=== PATIENT | male | born 1975 ===

== ENCOUNTER 2017-01-01 11:23 | Inpatient (IN) | payer OTHER ==
[2017-01-01 11:43] VITALS: BMI 23.5
[2017-01-01] MEDS ORDERED: Sodium Chloride 0.9% 1,000 ML IV STA ×3 (12:02→15:46)
[2017-01-01 12:29] LABS: SQUAMOUS EPITHIAL 1 /hpf (0-5); URINE AMORPHOUS SEDIMENT RARE /ul (<OCC); URINE BILIRUBIN MODERATE (NEGATIVE); URINE BLOOD SMALL (NEGATIVE); URINE CLARITY CLOUDY (Clear); URINE COLOR AMBER (YELLOW); URINE GLUCOSE (UA) NEG (Normal); URINE LEUKOCYTE ESTERASE NEG Leu/uL (Negative); URINE NITRATE NEGATIVE (NEGATIVE); URINE PROTEIN >=500 mg/dL (NEGATIVE); URINE URIC ACID CRYSTALS FEW /hpf (<OCC)
[2017-01-01 12:40] LABS: ALB/GLOB RATIO 1.2 (1.0-2.1); ALBUMIN 3.9 g/dL (3.5-5.0); ALT/SGPT 211 U/L (21-72); AST/SGOT 114 U/L (17-59); BLOOD UREA NITROGEN 20 mg/dl (9-20); CALCIUM 8.4 mg/dL (8.4-10.2); GFR AFRICAN-AMERICAN > 60; GFR NON-AFRICAN AMERICAN > 60; LIPASE 194 U/L (23-300)
[2017-01-01 12:41] LABS: INR 1.2 (0.9-1.2); PARTIAL THROMBOPLASTIN TIME 32.1 Seconds (25.6-37.1); PROTHROMBIN TIME 13.6 Seconds (9.8-13.1)
[2017-01-01 12:52] LABS: BASO % 0.2 % (0.0-2.0); EOS % 0.1 % (0.0-4.0); HEMOGLOBIN 12.4 g/dL (12.0-18.0); LYMPH # 0.1 K/uL (1.0-4.3); LYMPH % 0.8 % (20.0-40.0); MEAN CELL VOLUME 89.7 fl (80.0-94.0); MEAN CORPUSCULAR HEMOGLOBIN 30.4 pg (27.0-31.0); MEAN CORPUSCULAR HGB CONC 33.9 g/dL (33.0-37.0); MEAN PLATELET VOLUME 9.2 fl (7.2-11.7); MONO # 0.5 K/uL (0.0-0.8); MONO % 3.3 % (0.0-10.0); NEUT # 14.3 K/uL (1.8-7.0); NEUT % 95.6 % (50.0-75.0); NRBC % 0.1 % (0.0-0.0); PLATELET COUNT 73 K/uL (130-400); RBC 4.07 Mil/uL (4.40-5.90); RED CELL DISTRIBUTION WIDTH 13.8 % (11.5-14.5); WHITE BLOOD COUNT 14.9 K/uL (4.8-10.8)
[2017-01-01] MEDS ORDERED: Piperacillin/Tazobact 4.5 GM in Sodium Chloride 0.9% 100 ML IVPB STA (12:52)
[2017-01-01 13:20] LABS: VENOUS BLOOD GAS BASE EXCESS -1.7 mmol/L (0.0-2.0); VENOUS BLOOD GAS PCO2 50 mmHg (40-60); VENOUS BLOOD GAS PO2 16 mm/Hg (30-55); VENOUS BLOOD PH 7.31 (7.32-7.43)
--- NOTE | 2017-01-01 13:40 | ED PDOC ---
HPI: Abdomen Time Seen by Provider: 01/01/17 11:50 Chief Complaint (Nursing): Abdominal Pain Chief Complaint (Provider): abdominal pain History Per: Family (41 y/o male brought to ED for evaluation of abdominal pain/ fevers/chills x 3 days. Denies any vomiting/diarrhea. No h/o alcohol abuse. Denies any drugs/smoking. No h/o abdominal surgeries.) Past Medical History Reviewed: Historical Data, Nursing Documentation, Vital Signs Vital Signs: Last Vital Signs Temp 100.1 F H 01/01/17 13:47 Pulse 105 H 01/01/17 13:47 Resp 19 01/01/17 13:47 BP 100/66 01/01/17 13:47 Pulse Ox 98 01/01/17 15:21 - Surgical History Surgical History: No Surg Hx - Family History Family History: States: No Known Family Hx - Social History Current smoker - smoking cessation education provided: No Alcohol: Occasional Drugs: Denies - Home Medications Home Medications: Ambulatory Orders Medication Instructions Recorded No Known Home Med 01/01/17 - Allergies Allergies/Adverse Reactions: Allergies Allergy/AdvReac Type Severity Reaction Status Date / Time No Known Allergies Allergy Verified 01/01/17 11:42 Review of Systems ROS Statement: Except As Marked, All Systems Reviewed And Found Negative Gastrointestinal: Positive for: Abdominal Pain Physical Exam - Reviewed Nursing Documentation Reviewed: Yes Vital Signs Reviewed: Yes - Physical Exam Appears: Positive for: Well, Non-toxic, No Acute Distress Head Exam: Positive for: ATRAUMATIC, NORMAL INSPECTION, NORMOCEPHALIC Skin: Positive for: Normal Color, Warm, DRY Eye Exam: Positive for: EOMI, Normal appearance, PERRL ENT: Positive for: Normal ENT Inspection Neck: Positive for: Normal, Painless ROM Cardiovascular/Chest: Positive for: Regular Rate, Rhythm Respiratory: Positive for: CNT, Normal Breath Sounds Gastrointestinal/Abdominal: Positive for: Normal Exam, Bowel Sounds, Soft, Tenderness (epigastric tenderness noted) Back: Positive for: Normal Inspection Extremity: Positive for: Normal ROM Neurologic/Psych: Positive for: Alert, Oriented - Laboratory Results Result Diagrams: 01/01/17 12:00 01/01/17 12:00 Urine dip results: Positive for: Blood, Glucose, Bilirubin. Negative for: Leukocyte Esterase, Nitrate, Ketones, Protein - ECG O2 Sat by Pulse Oximetry: 98 - Progress ED Course And Treament: ns 2 liters wide open bc x2 venous blood gas ordered. Zosyn 4.5 gm iv x 1 dose US of abdomen: cholelithiasis and additional findings consistent with cholecystitis d/w Dr. Ahumada. Recommends hospitalist admission and GI consult. Disposition - Clinical Impression Clinical Impression: Cholelithiasis, Cholecystitis - Patient ED Disposition Is Patient to be Admitted: Yes - Disposition Disposition Time: 15:30 Condition: FAIR Forms: [employer] ([place]) - Pt Status Changed To: Hospital Disposition Of: Inpatient - Admit Certification Admit to Inpatient:: After my assessment, the patient will require hospitalization for at least two midnights. This is because of the severity of symptoms shown, intensity of services needed, and/or the medical risk in this patient being treated as an outpatient.
[2017-01-01 14:37] LABS: BANDS 22 % (0-2); LYMPHOCYTE 1 % (20-50); METAMYELOCYTE 1 % (0-0); MONOCYTE 6 % (0-10); NEUTROPHIL 69 % (42-75); REACTIVE LYMPHOCYTES 1 % (0-0); TOTAL CELLS COUNTED 100
[2017-01-01 14:39] LABS: PLATELET ESTIMATE DECREASED (NORMAL)
[2017-01-01 14:41] LABS: LARGE PLATELETS PRESENT; OVALOCYTES SLIGHT
--- NOTE | 2017-01-01 14:46 | US ---
HISTORY: evaluate for cholecystitis and biliary obstruction COMPARISON: None. TECHNIQUE: Sonographic evaluation of the right upper quadrant of the abdomen. FINDINGS: LIVER: Measures 17.3 cm in length. Patent portal vein. Portal venous flow: Hepatopetal. Unremarkeable echogenicity of the liver parenchyma. No mass. No intrahepatic bile duct dilatation. Trace perihepatic fluid identified. GALLBLADDER: Cholelithiasis. Gallbladder wall thickening, positive sonographic Ortega's sign. COMMON BILE DUCT: Measures 5.0 mm. No stones. No dilatation. PANCREAS: Unremarkable as visualized. No mass. No ductal dilatation. RIGHT KIDNEY: Measures 6.6 x 10.7 cm in length. Normal echogenicity. No calculus, mass, or hydronephrosis. Trace perinephric fluid AORTA: No aneurysmal dilatation. IVC: Unremarkable. OTHER FINDINGS: None . IMPRESSION: Cholelithiasis, additional findings consistent with acute cholecystitis
--- NOTE | 2017-01-01 16:20 | CP.PCM.HP ---
History of Present Illness - History of Present Illness History of Present Illness: 41 yo male with no significant PMH came in because of severe epigastric pain radiating to the suprapubic region and back since 3 days ago. Abdominal pain was accompanied with fever, chills and 2 episodes of nausea and vomiting. Denied chest pain, SOB. Present on Admission - Present on Admission Any Indicators Present on Admission: No History of DVT/PE: No History of Uncontrolled Diabetes: No Urinary Catheter: No Decubitus Ulcer Present: No Review of Systems - Review of Systems All systems: reviewed and no additional remarkable complaints except (aside from those mentioned above, 12 point system review were negative by me) Past Patient History - Tetanus Immunizations Tetanus Immunization: Unknown - Past Medical History & Family History Past Medical History?: No Past Family History: Reviewed and not pertinent - Past Social History Smoking Status: Never Smoked Alcohol: Occasional Drugs: Denies Home Situation {Lives}: With Family - CARDIAC Hx Cardiac Disorders: No - PULMONARY Hx Respiratory Disorders: No - NEUROLOGICAL Hx Neurological Disorder: No - HEENT Hx HEENT Problems: No - RENAL Hx Chronic Kidney Disease: No - ENDOCRINE/METABOLIC Hx Endocrine Disorders: No - HEMATOLOGICAL/ONCOLOGICAL Hx Blood Disorders: No - INTEGUMENTARY Hx Dermatological Problems: No - MUSCULOSKELETAL/RHEUMATOLOGICAL Hx Musculoskeletal Disorders: No - GASTROINTESTINAL Hx Gastrointestinal Disorders: No - GENITOURINARY/GYNECOLOGICAL Hx Genitourinary Disorders: No - PSYCHIATRIC Hx Psychophysiologic Disorder: No Hx Substance Use: No - SURGICAL HISTORY Hx Surgeries: No - ANESTHESIA Hx Anesthesia: No Meds Allergies/Adverse Reactions: Allergies Allergy/AdvReac Type Severity Reaction Status Date / Time No Known Allergies Allergy Verified 01/01/17 11:42 Physical Exam - Constitutional Appears: No Acute Distress - Head Exam Head Exam: ATRAUMATIC - Eye Exam Eye Exam: absent: Scleral icterus - ENT Exam ENT Exam: Mucous Membranes Moist - Neck Exam Neck exam: Negative for: Meningismus - Respiratory Exam Respiratory Exam: absent: Rhonchi, Wheezes, Respiratory Distress - Cardiovascular Exam Cardiovascular Exam: Tachycardia - GI/Abdominal Exam GI & Abdominal Exam: Tenderness (tenderness over epigastric and suprapubic area) . absent: Guarding, Rebound - Rectal Exam Rectal Exam: Deferred - Extremities Exam Extremities exam: Negative for: pedal edema - Back Exam Back exam: absent: tenderness - Neurological Exam Neurological exam: Alert, Oriented x3 - Psychiatric Exam Psychiatric exam: Normal Affect - Skin Skin Exam: Dry, Intact Results - Vital Signs Recent Vital Signs: Last Vital Signs Temp 100.1 F H 01/01/17 13:47 Pulse 105 H 01/01/17 13:47 Resp 19 01/01/17 13:47 BP 100/66 01/01/17 13:47 Pulse Ox 98 01/01/17 15:48 - Labs Result Diagrams: 01/01/17 12:00 01/01/17 12:00 Assessment & Plan (1) Sepsis Status: Acute Comment: admit to telemetry. blood culture x 2. Zosyn 3.375gm IV q 6hrs. Flagyl 500mg IV q 8hrs (2) Cholecystitis Status: Acute Comment: surgical consult with Dr Ahumada. GI consult with Dr Sanders (called by ER). [facility]
[2017-01-01 17:31] LABS: SQUAMOUS EPITHIAL 1 /hpf (0-5); URINE BACTERIA RARE (<OCC); URINE BILIRUBIN MODERATE (NEGATIVE); URINE BLOOD SMALL (NEGATIVE); URINE CLARITY CLOUDY (Clear); URINE COLOR AMBER (YELLOW); URINE GLUCOSE (UA) NEG (Normal); URINE HYALINE CAST 0-2 /hpf (0-2); URINE LEUKOCYTE ESTERASE NEG Leu/uL (Negative); URINE NITRATE NEGATIVE (NEGATIVE); URINE PROTEIN >=500 mg/dL (NEGATIVE)
[2017-01-01] MEDS ORDERED: metroNIDAZOLE 500mg/100ml NS 100 ML IVPB ONE (17:57)
[2017-01-01] MEDS: metroNIDAZOLE 500mg/100ml NS 100 ML IVPB SCH (18:00)
[2017-01-01] MEDS: Sodium Chloride 0.9% 1,000 ML IV SCH ×2 (18:00→23:30)
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
[2017-01-01] MEDS ORDERED: HYDROmorphone 0.5 mg/0.5 ml ISec IVP PRN (20:45)
[2017-01-01] MEDS: Piperacillin/Tazobact 3.375 GM in Sodium Chloride 0.9% 100 ML IVPB SCH (21:09)
[2017-01-02] MEDS: metroNIDAZOLE 500mg/100ml NS 100 ML IVPB SCH ×3 (01:03→16:39)
[2017-01-02] MEDS: Piperacillin/Tazobact 3.375 GM in Sodium Chloride 0.9% 100 ML IVPB SCH ×4 (03:51→21:42)
[2017-01-02] MEDS: Sodium Chloride 0.9% 1,000 ML IV SCH ×5 (05:41→19:30)
[2017-01-02 06:19] LABS: BASO % 0.2 % (0.0-2.0); HEMOGLOBIN 10.9 g/dL (12.0-18.0); LYMPH # 0.2 K/uL (1.0-4.3); LYMPH % 1.4 % (20.0-40.0); MEAN CELL VOLUME 90.8 fl (80.0-94.0); MEAN CORPUSCULAR HEMOGLOBIN 30.4 pg (27.0-31.0); MEAN CORPUSCULAR HGB CONC 33.5 g/dL (33.0-37.0); MEAN PLATELET VOLUME 9.1 fl (7.2-11.7); MONO # 0.7 K/uL (0.0-0.8); MONO % 4.2 % (0.0-10.0); NEUT # 15.9 K/uL (1.8-7.0); NEUT % 94.2 % (50.0-75.0); PLATELET COUNT 67 K/uL (130-400); RBC 3.58 Mil/uL (4.40-5.90); RED CELL DISTRIBUTION WIDTH 14.7 % (11.5-14.5); WHITE BLOOD COUNT 16.9 K/uL (4.8-10.8)
[2017-01-02 06:26] LABS: BLOOD UREA NITROGEN 15 mg/dl (9-20); CALCIUM 7.7 mg/dL (8.4-10.2); GFR AFRICAN-AMERICAN > 60; GFR NON-AFRICAN AMERICAN > 60
[2017-01-02 08:26] LABS: ALBUMIN 2.9 g/dL (3.5-5.0); ALT/SGPT 144 U/L (21-72); AST/SGOT 72 U/L (17-59); BILIRUBIN,DIRECT 3.4 mg/ml (0.0-0.4)
[2017-01-02] MEDS: Pantoprazole 40 mg EC Tab PO SCH (09:13)
--- NOTE | 2017-01-02 11:05 | MRI ---
PROCEDURE: Magnetic Resonance Cholangiopancreatography HISTORY: COMPARISON: None available. TECHNIQUE: Multiplanar, multisequence MR images of the abdomen were obtained, including heavily T2 weighted MRCP images of the biliary system. Rotating maximum intensity projection images of the biliary system were generated. FINDINGS: The examination is limited due to patient respiratory motion artifact. MRCP: Innumerable gallstones within gallbladder. Gallbladder wall markedly thickened. There is pericholecystic fluid. There is fluid seen in Childers's pouch as well as in the right pericolic gutter and about the liver laterally. There is also a small amount of fluid seen about the spleen and in the left pericolic gutter. Common bile duct measures 5 mm in diameter. There is no filling defect seen within the common bile duct please note that the most distal aspect of the common bile duct is not visualized and does not taper smoothly. Differential diagnosis would include distal common duct calculus, ampullary stricture, or neoplasm of the ampulla/pancreatic head. LIVER: Normal size, contour and signal intensity. No focal mass. No intrahepatic biliary dilatation. GALLBLADDER: As above SPLEEN: Normal size, contour and signal intensity. PANCREAS: Unremarkable. ADRENALS: Unremarkable. KIDNEYS: Unremarkable. AORTA: No aneurysm. ASCITES: Trace OTHER FINDINGS: None. IMPRESSION: Cholelithiasis. Thickened gallbladder wall. Pericholecystic fluid. Findings concerning for acute cholecystitis. Please correlate clinically. Consider evaluation with radionuclide hepatobiliary scan if clinically warranted. No intra or extrahepatic biliary ductal dilatation. No dilatation of the common bile duct. There is no visualization of the most distal aspect of the common bile duct with no smooth tapering. The this may be due to artifact or may reflect intrinsic or extrinsic mass effect such as distal common duct stone, ampullary neoplasm or pancreatic neoplasm. Trace ascites. Preliminary interpretation of this examination was reported by Risk I/O at 7:12 p.m. on 01/01/2017. There is general concurrence of this report with the preliminary interpretation. Failure to visualize the normal distal tapering of the common bile duct was not described in the preliminary report of this examination.
--- NOTE | 2017-01-02 11:10 | CP.PCM.PN ---
Subjective - Date & Time of Evaluation Date of Evaluation: 01/02/17 Time of Evaluation: 11:00 - Subjective Subjective: Hospitalist Progress Note (Patient was seen and evaluated at 11:00 AM 01/02/17 in 417-2) Pleasant 41 year old male who was admitted for evaluation of severe epigastric pain radiating to the suprapubic region and back. He was found to have Acute Cholecystitis on Abdominal U/S. Currently upon FULL ROS: Bifrontal Headache: he knows to ask for Tylenol if needed RUQ pain now only if someone presses on it NO more episodes of N/V NO other complaints upon FULL ROS Exam: HEENT: NCA, EOMI, PERRLA, NO lymphadenopathy, NO thyromegaly, NO pharyngeal erythema/exudate, Nasal Turbinates are moist/nonerythematous/nonedematous, Oral mucosa is moist Cardio: NS1 and NS2, NO M/R/G Resp: CTA B/L, NO R/R/W GI: BSx4, Soft, (+)Tenderness to palpation in RUQ without guarding/rebound tenderness, ND, NO HSM Ext: Pulses are strong and equal, Capillary Refill is 2 seconds, NO edema Neuro: CN II through XII Assessment and Plan: 1). Acute Cholecystitis Surgery Dr. Ahumada GI Dr. Sanders F/U MRCP report 01/01/17 Zosyn 3.375 gm IV Q6H Flagyl 500 mg IV Q8H Patient for OR today 2). Sepsis (Secondary to Acute Cholecystitis?) WBC increased from 01/01/17 Bands are at 24 Blood Culture shows Gram (+) Cocci in chains: Add Vancomycin? ID Dr. Nathalia Bae 3). Prophylactic Measure Tylenol 650 mg PO Q4H PRN F> 100.4 Dilaudid 1 mg IV Q4H PRN Moderate Pain Zofran 4mg IV Q4H PRN N/V Protonix 40 mg PO 1x/day Eduardo Gaffney D.O. Objective - Vital Signs/Intake and Output Vital Signs (last 24 hours): Temp Pulse Resp BP Pulse Ox 98.4 F 81 20 94/61 L 96 01/02/17 08:11 01/02/17 08:11 01/02/17 08:11 01/02/17 08:11 01/02/17 08:11 Intake and Output: 01/02/17 01/02/17 06:59 18:59 Intake Total 2300 Output Total 1800 Balance 500 - Medications Medications: Current Medications Acetaminophen (Tylenol 325mg Tab) 650 mg PO Q4 PRN PRN Reason: Fever >100.4 F Last Admin: 01/01/17 16:21 Dose: 650 mg Hydromorphone HCl (Dilaudid) 1 mg IVP Q4 PRN PRN Reason: Pain, moderate (4-7) Sodium Chloride (Sodium Chloride 0.9%) 1,000 mls @ 150 mls/hr IV .Q6H40M [facility] Last Admin: 01/02/17 05:41 Dose: 150 mls/hr Metronidazole (Flagyl 500mg/100ml Ns) 100 mls @ 100 mls/hr IVPB Q8 [facility] Last Admin: 01/02/17 08:00 Dose: 100 mls/hr Piperacillin Sod/Tazobactam (Sod 3.375 gm/ Sodium Chloride) 100 mls @ 100 mls/ hr IVPB Q6 [facility] Last Admin: 01/02/17 09:13 Dose: 100 mls/hr Ondansetron HCl (Zofran Inj) 4 mg IVP Q4 PRN PRN Reason: Nausea/Vomiting Pantoprazole Sodium (Protonix Ec Tab) 40 mg PO DAILY [facility] Last Admin: 01/02/17 09:13 Dose: 40 mg - Labs Labs: 01/02/17 05:15 01/02/17 05:15 PT 13.6 Seconds (9.8-13.1) H 01/01/17 12:00 INR 1.2 (0.9-1.2) 01/01/17 12:00 APTT 32.1 Seconds (25.6-37.1) 01/01/17 12:00
--- NOTE | 2017-01-02 12:18 | CP.PCM.PN ---
Subjective - Date & Time of Evaluation Date of Evaluation: 01/02/17 Time of Evaluation: 12:01 - Subjective Subjective: I D NOTE(INITIAL) REVIEW OF GRAM STAIN SHOWS GRAM POSITIVE COCCI IN CHAINS (STREPTOCOCCUS) POSSIBLY ENTEROCOCCUS ,THUS WILL ADD VANCOMYCIN FOR ADDITIONAL COVERAGE,CONSIDERING THE SIGNIFICANT CBC c 22 BANDS ,THROMBOCYTOPENIA,LEUKOCYTOSIS. Objective - Vital Signs/Intake and Output Vital Signs (last 24 hours): Temp Pulse Resp BP Pulse Ox 98.4 F 81 20 94/61 L 96 01/02/17 08:11 01/02/17 08:11 01/02/17 08:11 01/02/17 08:11 01/02/17 08:11 Intake and Output: 01/02/17 01/02/17 06:59 18:59 Intake Total 2300 Output Total 1800 Balance 500 - Medications Medications: Current Medications Acetaminophen (Tylenol 325mg Tab) 650 mg PO Q4 PRN PRN Reason: Fever >100.4 F Last Admin: 01/01/17 16:21 Dose: 650 mg Hydromorphone HCl (Dilaudid) 1 mg IVP Q4 PRN PRN Reason: Pain, moderate (4-7) Sodium Chloride (Sodium Chloride 0.9%) 1,000 mls @ 150 mls/hr IV .Q6H40M [facility] Last Admin: 01/02/17 05:41 Dose: 150 mls/hr Metronidazole (Flagyl 500mg/100ml Ns) 100 mls @ 100 mls/hr IVPB Q8 [facility] Last Admin: 01/02/17 08:00 Dose: 100 mls/hr Piperacillin Sod/Tazobactam (Sod 3.375 gm/ Sodium Chloride) 100 mls @ 100 mls/ hr IVPB Q6 [facility] Last Admin: 01/02/17 09:13 Dose: 100 mls/hr Ondansetron HCl (Zofran Inj) 4 mg IVP Q4 PRN PRN Reason: Nausea/Vomiting Pantoprazole Sodium (Protonix Ec Tab) 40 mg PO DAILY [facility] Last Admin: 01/02/17 09:13 Dose: 40 mg - Labs Labs: 01/02/17 05:15 01/02/17 05:15 PT 13.6 Seconds (9.8-13.1) H 01/01/17 12:00 INR 1.2 (0.9-1.2) 01/01/17 12:00 APTT 32.1 Seconds (25.6-37.1) 01/01/17 12:00
[2017-01-02 12:42] LABS: MONOCYTE 4 % (0-10); NEUTROPHIL 72 % (42-75); TOTAL CELLS COUNTED 100
[2017-01-02 12:43] LABS: ANISOCYTOSIS SLIGHT; HYPOCHROMIC SLIGHT
[2017-01-02 12:44] LABS: LARGE PLATELETS PRESENT
[2017-01-02 12:46] LABS: PLATELET ESTIMATE DECREASED (NORMAL)
[2017-01-02 12:57] LABS: LYMPHOCYTE 0 % (20-50)
[2017-01-02 13:01] LABS: BANDS 24 % (0-2)
--- NOTE | 2017-01-02 13:12 | CP.PCM.PN ---
Subjective - Date & Time of Evaluation Date of Evaluation: 01/02/17 Time of Evaluation: 13:09 - Subjective Subjective: Surgery: Dr. Watson Pt seen and examined. States that he feels better today. Pain is improved. No N/ V overnight. Objective - Vital Signs/Intake and Output Vital Signs (last 24 hours): Temp Pulse Resp BP Pulse Ox 98.7 F 95 H 20 98/65 L 97 01/02/17 12:25 01/02/17 12:25 01/02/17 12:25 01/02/17 12:25 01/02/17 12:25 Intake and Output: 01/02/17 01/02/17 06:59 18:59 Intake Total 2300 Output Total 1800 Balance 500 - Medications Medications: Current Medications Acetaminophen (Tylenol 325mg Tab) 650 mg PO Q4 PRN PRN Reason: Fever >100.4 F Last Admin: 01/01/17 16:21 Dose: 650 mg Hydromorphone HCl (Dilaudid) 1 mg IVP Q4 PRN PRN Reason: Pain, moderate (4-7) Sodium Chloride (Sodium Chloride 0.9%) 1,000 mls @ 150 mls/hr IV .Q6H40M [facility] Last Admin: 01/02/17 13:07 Dose: 150 mls/hr Metronidazole (Flagyl 500mg/100ml Ns) 100 mls @ 100 mls/hr IVPB Q8 [facility] Last Admin: 01/02/17 08:00 Dose: 100 mls/hr Piperacillin Sod/Tazobactam (Sod 3.375 gm/ Sodium Chloride) 100 mls @ 100 mls/ hr IVPB Q6 [facility] Last Admin: 01/02/17 09:13 Dose: 100 mls/hr Vancomycin HCl 1 gm/ Sodium (Chloride) 250 mls @ 166.667 mls/hr IVPB Q12 [facility] Ondansetron HCl (Zofran Inj) 4 mg IVP Q4 PRN PRN Reason: Nausea/Vomiting Pantoprazole Sodium (Protonix Ec Tab) 40 mg PO DAILY [facility] Last Admin: 01/02/17 09:13 Dose: 40 mg - Labs Labs: 01/02/17 05:15 01/02/17 05:15 PT 13.6 Seconds (9.8-13.1) H 01/01/17 12:00 INR 1.2 (0.9-1.2) 01/01/17 12:00 APTT 32.1 Seconds (25.6-37.1) 01/01/17 12:00 - Constitutional Appears: Non-toxic, No Acute Distress - Head Exam Head Exam: ATRAUMATIC, NORMOCEPHALIC - Eye Exam Eye Exam: EOMI, Scleral icterus - ENT Exam ENT Exam: Mucous Membranes Moist, Normal External Ear Exam - Neck Exam Neck Exam: Full ROM - Respiratory Exam Respiratory Exam: NORMAL BREATHING PATTERN. absent: Accessory Muscle Use, Respiratory Distress - GI/Abdominal Exam GI & Abdominal Exam: Soft, Tenderness (mild epigastric). absent: Distended, Firm, Guarding, Rigid, Rebound - Extremities Exam Extremities Exam: absent: Calf Tenderness, Pedal Edema - Neurological Exam Neurological Exam: Alert, Awake, Oriented x3 Assessment and Plan - Assessment and Plan (Free Text) Assessment: 41M w. cholecystitis -OR postponed, pt has thrombocytopenia, recommend hematology consult for further workup prior to OR -c/w abx per ID -pain management -IVF -will continue to follow closely -d/w attending Zemaitis PGY3
--- NOTE | 2017-01-02 13:12 | CP.PCM.PN ---
Subjective - Date & Time of Evaluation Date of Evaluation: 01/02/17 Time of Evaluation: 13:09 - Subjective Subjective: General Surgery - Dr. Watson Pt S&E. STUART. Pt continues to have epigastric abdominal pain. He denies any N /V, F/C, SOB/Cp. Objective - Vital Signs/Intake and Output Vital Signs (last 24 hours): Temp Pulse Resp BP Pulse Ox 98.7 F 95 H 20 98/65 L 97 01/02/17 12:25 01/02/17 12:25 01/02/17 12:25 01/02/17 12:25 01/02/17 12:25 Intake and Output: 01/02/17 01/02/17 06:59 18:59 Intake Total 2300 Output Total 1800 Balance 500 - Medications Medications: Current Medications Acetaminophen (Tylenol 325mg Tab) 650 mg PO Q4 PRN PRN Reason: Fever >100.4 F Last Admin: 01/01/17 16:21 Dose: 650 mg Hydromorphone HCl (Dilaudid) 1 mg IVP Q4 PRN PRN Reason: Pain, moderate (4-7) Sodium Chloride (Sodium Chloride 0.9%) 1,000 mls @ 150 mls/hr IV .Q6H40M [facility] Last Admin: 01/02/17 13:07 Dose: 150 mls/hr Metronidazole (Flagyl 500mg/100ml Ns) 100 mls @ 100 mls/hr IVPB Q8 [facility] Last Admin: 01/02/17 08:00 Dose: 100 mls/hr Piperacillin Sod/Tazobactam (Sod 3.375 gm/ Sodium Chloride) 100 mls @ 100 mls/ hr IVPB Q6 [facility] Last Admin: 01/02/17 09:13 Dose: 100 mls/hr Vancomycin HCl 1 gm/ Sodium (Chloride) 250 mls @ 166.667 mls/hr IVPB Q12 [facility] Ondansetron HCl (Zofran Inj) 4 mg IVP Q4 PRN PRN Reason: Nausea/Vomiting Pantoprazole Sodium (Protonix Ec Tab) 40 mg PO DAILY [facility] Last Admin: 01/02/17 09:13 Dose: 40 mg - Labs Labs: 01/02/17 05:15 01/02/17 05:15 PT 13.6 Seconds (9.8-13.1) H 01/01/17 12:00 INR 1.2 (0.9-1.2) 01/01/17 12:00 APTT 32.1 Seconds (25.6-37.1) 01/01/17 12:00 - Constitutional Appears: No Acute Distress - Head Exam Head Exam: ATRAUMATIC, NORMAL INSPECTION, NORMOCEPHALIC - Eye Exam Eye Exam: Scleral icterus (mild) - ENT Exam ENT Exam: Mucous Membranes Dry - Respiratory Exam Respiratory Exam: NORMAL BREATHING PATTERN. absent: Respiratory Distress - Cardiovascular Exam Cardiovascular Exam: REGULAR RHYTHM - GI/Abdominal Exam GI & Abdominal Exam: Soft, Tenderness (Epigastric region). absent: Distended, Guarding, Rebound - Neurological Exam Neurological Exam: Alert, Oriented x3 - Psychiatric Exam Psychiatric exam: Normal Affect, Normal Mood - Skin Skin Exam: Dry, Intact Assessment and Plan - Assessment and Plan (Free Text) Assessment: 41M w/ Cholecystitis, Elevated LFTs/Bilirubin and thrombocytopenia -Continue NPO for now -F/U GI recc. -Surgery postponed at this time d/t need for further workup from hematology/GI -Consult placed to Heme/Onc -Continue Abx and Pain control -Will follow with you JANNETTE Dubose PGY3
[2017-01-03] MEDS: metroNIDAZOLE 500mg/100ml NS 100 ML IVPB SCH ×3 (00:11→16:35)
--- NOTE | 2017-01-03 00:47 | CON ---
INFECTIOUS DISEASE CONSULT HISTORY OF PRESENT ILLNESS: The patient is a 41-year-old [place] born male who began to have sudden onset of abdominal pain last Sunday. At first, he said it was just an achy like pain and then it became quite severe and he started developing fever and chills over the weekend. Also there were multiple episodes of nausea and vomiting during this period of time. He came to the hospital yesterday for evaluation. He has had difficulty eating also and the patient also gives history of surgical history in the past and it is noted that he has a long surgical scan on the abdomen from the epigastrium almost down to the suprapubic area, may be representing a exploration, unsure of the etiology of that. The patient states he feels better in the last 24 hours and pain is now localized mote to the right upper quadrant and the epigastric area. PHYSICAL EXAMINATION GENERAL: He is alert, cooperative and oriented to time and place. HEENT: Within normal limits. NECK: Supple. LUNGS: Clear, although there are some decreased breath sounds at the right base. HEART: Regular sinus rhythm. ABDOMEN: Essentially diffusely tender, but only on palpation and there are some severe tenderness in the mid epigastrium area and right upper quadrant area. He has positive bowel sounds. EXTREMITIES: Within normal limits. There are also complaints of some rectal bleeding and I have ordered stool for acute blood. LABORATORY DATA: His blood count is positive for gram-positive cocci change likely streptococcus which also could be group D Enterococcus. Labs also include WBCs 14.9 on , today it is 16.9; hemoglobin 12.4 and today is now 10.9; platelet count is 73 and 67 today; he also has 22% bands yesterday and 24% bands today. An hematology consult has been ordered on the patient. GFR is greater than 60, creatinine is 1, LFTs shows AST 114 and ALT is 211, they have diminished today to 72 and 144. IMPRESSION: MRCP shows the impression of cholelithiasis with thickened gallbladder wall, pericholecystic fluid. Findings concerning for acute cholecystitis. At this point in time, the diagnosis is acute cholecystitis, thrombocytopenia, gram-positive sepsis, rule out any GI bleeding. At the present time, we will continue with Zosyn and I have added vancomycin in the possibility that this is group D Enterococcus which is strep Rx vancomycin 1 gram ivpb Q 12 and Zosyn. The patient is awaiting evaluation hematologically. Sanjeev Bae MD [facility]
[2017-01-03] MEDS: Sodium Chloride 0.9% 1,000 ML IV SCH ×4 (01:53→20:51)
[2017-01-03] MEDS: Piperacillin/Tazobact 3.375 GM in Sodium Chloride 0.9% 100 ML IVPB SCH ×4 (04:02→21:00)
[2017-01-03 06:59] LABS: ALBUMIN 2.7 g/dL (3.5-5.0); ALT/SGPT 120 U/L (21-72); AST/SGOT 56 U/L (17-59); BASO % 0.1 % (0.0-2.0); BLOOD UREA NITROGEN 17 mg/dl (9-20); CALCIUM 7.7 mg/dL (8.4-10.2); EOS % 0.1 % (0.0-4.0); GFR AFRICAN-AMERICAN > 60; GFR NON-AFRICAN AMERICAN > 60; HEMOGLOBIN 11.1 g/dL (12.0-18.0); LYMPH # 0.7 K/uL (1.0-4.3); LYMPH % 5.3 % (20.0-40.0); MEAN CELL VOLUME 90.6 fl (80.0-94.0); MEAN CORPUSCULAR HEMOGLOBIN 30.7 pg (27.0-31.0); MEAN CORPUSCULAR HGB CONC 33.9 g/dL (33.0-37.0); MEAN PLATELET VOLUME 9.2 fl (7.2-11.7); MONO # 0.8 K/uL (0.0-0.8); MONO % 6.2 % (0.0-10.0); NEUT # 11.6 K/uL (1.8-7.0); NEUT % 88.3 % (50.0-75.0); NRBC % 0.1 % (0.0-0.0); RBC 3.61 Mil/uL (4.40-5.90); RED CELL DISTRIBUTION WIDTH 14.5 % (11.5-14.5); WHITE BLOOD COUNT 13.1 K/uL (4.8-10.8)
--- NOTE | 2017-01-03 07:59 | CP.PCM.PN ---
Subjective - Date & Time of Evaluation Date of Evaluation: 01/03/17 Time of Evaluation: 07:55 - Subjective Subjective: Surgery: Dr. Watson Pt seen and examined. Resting comfortably in bed. Still has epigastric pain. Worse w. deep inspiration. No N/V. Tolerating CLD. Objective - Vital Signs/Intake and Output Vital Signs (last 24 hours): Temp Pulse Resp BP Pulse Ox 98.4 F 82 20 102/69 97 01/03/17 05:27 01/03/17 05:27 01/03/17 05:27 01/03/17 05:27 01/03/17 05:27 - Medications Medications: Current Medications Acetaminophen (Tylenol 325mg Tab) 650 mg PO Q4 PRN PRN Reason: Fever >100.4 F Last Admin: 01/03/17 01:53 Dose: 650 mg Hydromorphone HCl (Dilaudid) 1 mg IVP Q4 PRN PRN Reason: Pain, moderate (4-7) Sodium Chloride (Sodium Chloride 0.9%) 1,000 mls @ 150 mls/hr IV .Q6H40M [facility] Last Admin: 01/03/17 01:53 Dose: 150 mls/hr Metronidazole (Flagyl 500mg/100ml Ns) 100 mls @ 100 mls/hr IVPB Q8 [facility] Last Admin: 01/03/17 00:11 Dose: 100 mls/hr Piperacillin Sod/Tazobactam (Sod 3.375 gm/ Sodium Chloride) 100 mls @ 100 mls/ hr IVPB Q6 [facility] Last Admin: 01/03/17 04:02 Dose: 100 mls/hr Vancomycin HCl 1 gm/ Sodium (Chloride) 250 mls @ 166.667 mls/hr IVPB Q12 [facility] Last Admin: 01/02/17 20:10 Dose: 166.667 mls/hr Ondansetron HCl (Zofran Inj) 4 mg IVP Q4 PRN PRN Reason: Nausea/Vomiting Pantoprazole Sodium (Protonix Ec Tab) 40 mg PO DAILY [facility] Last Admin: 01/02/17 09:13 Dose: 40 mg Potassium Chloride (Potassium Chloride Oral Soln) 40 meq PO ONCE ONE Stop: 01/03/17 08:01 - Labs Labs: 01/03/17 05:30 01/03/17 05:30 PT 13.6 Seconds (9.8-13.1) H 01/01/17 12:00 INR 1.2 (0.9-1.2) 01/01/17 12:00 APTT 32.1 Seconds (25.6-37.1) 01/01/17 12:00 - Constitutional Appears: Non-toxic, No Acute Distress - Head Exam Head Exam: ATRAUMATIC, NORMOCEPHALIC - Eye Exam Eye Exam: EOMI. absent: Scleral icterus - ENT Exam ENT Exam: Mucous Membranes Moist - Neck Exam Neck Exam: Full ROM - Respiratory Exam Respiratory Exam: NORMAL BREATHING PATTERN. absent: Accessory Muscle Use, Respiratory Distress - GI/Abdominal Exam GI & Abdominal Exam: Soft, Tenderness (epigastric). absent: Distended, Firm, Guarding, Rigid, Rebound - Extremities Exam Extremities Exam: absent: Calf Tenderness, Pedal Edema - Neurological Exam Neurological Exam: Alert, Awake, Oriented x3 Assessment and Plan - Assessment and Plan (Free Text) Assessment: 41M w. cholecystitis -will f/u heme/onc recommendations regarding thrombocytopenia -OR when medically cleared -c/w abx and pain management -will continue to follow -will d/w attending Zemaitis PGY3
[2017-01-03] MEDS ORDERED: Potassium Chloride 20 mEq/15 ml LIQ UD PO ONE (08:00)
--- NOTE | 2017-01-03 08:32 | CON ---
DATE OF SERVICE: 01/02/2017 REFERRING PHYSICIAN: REASON FOR CONSULTATION: Nausea, vomiting, and abdominal pain. HISTORY OF PRESENT ILLNESS: This is a pleasant 41-year-old male, said he had severe epigastric pain radiating to the right upper quadrant for the past 3 days, some fevers , some chills, now some nausea and vomiting. Never had this before. No heartburn or reflux. No weight loss. Currently, lying in bed comfortably, in no apparent distress. PAST MEDICAL HISTORY: As above. PAST SURGICAL HISTORY: As above. MEDICATIONS: Have been reviewed. REVIEW OF SYSTEMS: All other systems have been reviewed and negative apart from the HPI. PHYSICAL EXAMINATION: VITAL SIGNS: Grossly unremarkable. Had a fever overnight. GENERAL: A pleasant middle-aged male, lying in the bed comfortably. HEENT: Head, normocephalic, atraumatic. Eyes, pupils equal and reactive to light bilaterally. No conjunctival icterus. No pallor. NECK: Supple. Normal range of motion. No lymphadenopathy appreciated. LUNGS: Coarse breath sounds bilaterally. HEART: S1 and S2. Regular rate and rhythm. No murmurs appreciated. ABDOMEN: Soft. Some tenderness in the right upper quadrant. No rebound. No guarding. RECTAL: Deferred. EXTREMITIES: Positive pulses bilaterally. SKIN: Warm, dry, and intact. NEUROLOGIC: Alert and oriented x3. LABORATORY DATA: Labs have been reviewed. WBC is 14, went up to 16.9, hemoglobin 7.9, 22%, INR 1.2, bilirubin was 4.5, now down to 4.1, AST and ALT 111 and 211, alkaline phosphatase 138. The AST and ALT are improving. MRCP is negative for retained stone. Ultrasound shows thickened gallbladder wall, likely cholecystitis. ASSESSMENT: This is a 41-year-old male with severe cholecystitis and sepsis. From gastrointestinal standpoint, proceed with laparoscopic cholecystectomy. If interested, if need be, can consider intraoperative cholangiogram. Thank you for the consult. Humphrey Sanders MD/ PhD CC:
[2017-01-03] MEDS: Pantoprazole 40 mg EC Tab PO SCH (08:49)
--- NOTE | 2017-01-03 14:24 | CP.PCM.PN ---
Subjective - Date & Time of Evaluation Date of Evaluation: 01/03/17 Time of Evaluation: 10:00 - Subjective Subjective: Pt seen and examined. Claimed still having epigastric pain but much less and only on deep breathing. Objective - Vital Signs/Intake and Output Vital Signs (last 24 hours): Temp Pulse Resp BP Pulse Ox 98.6 F 72 18 102/65 96 01/03/17 13:05 01/03/17 13:05 01/03/17 13:05 01/03/17 13:05 01/03/17 13:05 - Medications Medications: Current Medications Acetaminophen (Tylenol 325mg Tab) 650 mg PO Q4 PRN PRN Reason: Fever >100.4 F Last Admin: 01/03/17 01:53 Dose: 650 mg Hydromorphone HCl (Dilaudid) 1 mg IVP Q4 PRN PRN Reason: Pain, moderate (4-7) Sodium Chloride (Sodium Chloride 0.9%) 1,000 mls @ 150 mls/hr IV .Q6H40M [facility] Last Admin: 01/03/17 08:52 Dose: 150 mls/hr Metronidazole (Flagyl 500mg/100ml Ns) 100 mls @ 100 mls/hr IVPB Q8 [facility] Last Admin: 01/03/17 08:52 Dose: 100 mls/hr Piperacillin Sod/Tazobactam (Sod 3.375 gm/ Sodium Chloride) 100 mls @ 100 mls/ hr IVPB Q6 [facility] Last Admin: 01/03/17 08:59 Dose: 100 mls/hr Vancomycin HCl 1 gm/ Sodium (Chloride) 250 mls @ 166.667 mls/hr IVPB Q12 [facility] Last Admin: 01/03/17 08:52 Dose: 166.667 mls/hr Ondansetron HCl (Zofran Inj) 4 mg IVP Q4 PRN PRN Reason: Nausea/Vomiting Pantoprazole Sodium (Protonix Ec Tab) 40 mg PO DAILY [facility] Last Admin: 01/03/17 08:49 Dose: 40 mg - Labs Labs: 01/03/17 05:30 01/03/17 05:30 PT 13.6 Seconds (9.8-13.1) H 01/01/17 12:00 INR 1.2 (0.9-1.2) 01/01/17 12:00 APTT 32.1 Seconds (25.6-37.1) 01/01/17 12:00 - Constitutional Appears: No Acute Distress - Head Exam Head Exam: ATRAUMATIC - Eye Exam Eye Exam: absent: Scleral icterus - ENT Exam ENT Exam: Mucous Membranes Moist - Neck Exam Neck Exam: absent: Meningismus - Respiratory Exam Respiratory Exam: absent: Rhonchi, Wheezes, Respiratory Distress - Cardiovascular Exam Cardiovascular Exam: REGULAR RHYTHM, +S1, +S2 - GI/Abdominal Exam GI & Abdominal Exam: Soft, Tenderness (mild tenderness over epigastric region) - Rectal Exam Rectal Exam: Deferred - Extremities Exam Extremities Exam: absent: Pedal Edema, Tenderness - Back Exam Back Exam: NORMAL INSPECTION - Neurological Exam Neurological Exam: Alert, Oriented x3 - Psychiatric Exam Psychiatric exam: Normal Affect - Skin Skin Exam: Dry, Intact Assessment and Plan (1) Sepsis Status: Acute (2) Cholecystitis Status: Acute - Assessment and Plan (Free Text) Assessment: 41 yo male with no significant PMH came in because of epigastric and suprapubic pain accompanied with fever and chills. Abdominal sonogram showed cholelithiasis with acute cholecystitis supported by MRCP. Patient was admitted with Sepsis secondary to Acute Cholecystitis. (1) Sepsis blood culture grew Gram + cocci in chains continue Zosyn and Flagyl plus Vanco as recommended by ID patient has been afebrile since 5 this morning and leukocytes trending down and no bands ID consult with Dr Bae appreciated (2) Acute Cholecystitis cholecystectomy on hold because of thrombocytopenia awaiting clearance from maintenance mgr, Dr Guzman (aware and informed; he will see patient today) (3) Thrombocytopenia probably secondary to infection or sepsis hematology consult with Dr Guzman
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
[2017-01-03 17:25] LABS: IRON 14 ug/dL (49-181)
[2017-01-03 17:34] LABS: % IRON SATURATION 6 % (20-55); TOTAL IRON BINDING CAPACITY 223 ug/dL (250-450)
[2017-01-04] MEDS: metroNIDAZOLE 500mg/100ml NS 100 ML IVPB SCH ×3 (01:03→16:50)
[2017-01-04] MEDS: Piperacillin/Tazobact 3.375 GM in Sodium Chloride 0.9% 100 ML IVPB SCH ×4 (04:07→22:23)
[2017-01-04] MEDS: Sodium Chloride 0.9% 1,000 ML IV SCH ×3 (04:07→18:47)
[2017-01-04 07:07] LABS: BASO % 0.2 % (0.0-2.0); EOS % 0.3 % (0.0-4.0); HEMOGLOBIN 12.3 g/dL (12.0-18.0); LYMPH # 1.3 K/uL (1.0-4.3); LYMPH % 13.7 % (20.0-40.0); MEAN CORPUSCULAR HEMOGLOBIN 30.8 pg (27.0-31.0); MEAN CORPUSCULAR HGB CONC 33.8 g/dL (33.0-37.0); MEAN PLATELET VOLUME 9.3 fl (7.2-11.7); MONO # 0.8 K/uL (0.0-0.8); MONO % 7.9 % (0.0-10.0); NEUT # 7.5 K/uL (1.8-7.0); NEUT % 77.9 % (50.0-75.0); NRBC % 0.2 % (0.0-0.0); RED CELL DISTRIBUTION WIDTH 14.8 % (11.5-14.5); WHITE BLOOD COUNT 9.6 K/uL (4.8-10.8)
[2017-01-04 07:19] LABS: BLOOD UREA NITROGEN 13 mg/dl (9-20); GFR AFRICAN-AMERICAN > 60; GFR NON-AFRICAN AMERICAN > 60
[2017-01-04 07:21] LABS: INR 1.1 (0.9-1.2); PARTIAL THROMBOPLASTIN TIME 28.8 Seconds (25.6-37.1); PROTHROMBIN TIME 11.2 Seconds (9.8-13.1)
[2017-01-04] MEDS: Pantoprazole 40 mg EC Tab PO SCH (08:28)
--- NOTE | 2017-01-04 09:09 | CP.PCM.PN ---
<Maricel Mejia - Last Filed: 01/04/17 09:06> Subjective - Date & Time of Evaluation Date of Evaluation: 01/04/17 Time of Evaluation: 09:06 - Subjective Subjective: Surgery for Dr. Walter smiley&carmelo CRUZ. Denies F/C/N/V/D/'CP/SOB. Pain controlled. Tolerating diet. Objective - Vital Signs/Intake and Output Vital Signs (last 24 hours): Temp Pulse Resp BP Pulse Ox 98.5 F 59 L 20 113/76 97 01/04/17 08:00 01/04/17 08:00 01/04/17 08:00 01/04/17 08:00 01/04/17 08:00 - Medications Medications: Current Medications Acetaminophen (Tylenol 325mg Tab) 650 mg PO Q4 PRN PRN Reason: Fever >100.4 F Last Admin: 01/03/17 01:53 Dose: 650 mg Acetaminophen (Tylenol 325mg Tab) 650 mg PO Q6 PRN PRN Reason: Pain, Mild (1-3) Last Admin: 01/03/17 20:49 Dose: 650 mg Hydromorphone HCl (Dilaudid) 1 mg IVP Q4 PRN PRN Reason: Pain, moderate (4-7) Sodium Chloride (Sodium Chloride 0.9%) 1,000 mls @ 150 mls/hr IV .Q6H40M [facility] Last Admin: 01/04/17 04:07 Dose: 150 mls/hr Metronidazole (Flagyl 500mg/100ml Ns) 100 mls @ 100 mls/hr IVPB Q8 [facility] Last Admin: 01/04/17 08:27 Dose: 100 mls/hr Piperacillin Sod/Tazobactam (Sod 3.375 gm/ Sodium Chloride) 100 mls @ 100 mls/ hr IVPB Q6 [facility] Last Admin: 01/04/17 04:07 Dose: 100 mls/hr Vancomycin HCl 1 gm/ Sodium (Chloride) 250 mls @ 166.667 mls/hr IVPB Q12 [facility] Last Admin: 01/04/17 08:27 Dose: 166.667 mls/hr Ondansetron HCl (Zofran Inj) 4 mg IVP Q4 PRN PRN Reason: Nausea/Vomiting Pantoprazole Sodium (Protonix Ec Tab) 40 mg PO DAILY [facility] Last Admin: 01/04/17 08:28 Dose: 40 mg - Labs Labs: 01/04/17 06:15 01/04/17 06:15 PT 11.2 Seconds (9.8-13.1) 01/04/17 06:15 INR 1.1 (0.9-1.2) 01/04/17 06:15 APTT 28.8 Seconds (25.6-37.1) 01/04/17 06:15 - Constitutional Appears: No Acute Distress - Head Exam Head Exam: ATRAUMATIC, NORMAL INSPECTION, NORMOCEPHALIC - Eye Exam Eye Exam: EOMI, Normal appearance, PERRL Pupil Exam: NORMAL ACCOMODATION, PERRL - ENT Exam ENT Exam: Mucous Membranes Moist, Normal Exam - Neck Exam Neck Exam: Full ROM, Normal Inspection. absent: Lymphadenopathy - Respiratory Exam Respiratory Exam: Clear to Ausculation Bilateral, NORMAL BREATHING PATTERN - Cardiovascular Exam Cardiovascular Exam: REGULAR RHYTHM, +S1, +S2. absent: Murmur - GI/Abdominal Exam GI & Abdominal Exam: Soft, Tenderness, Normal Bowel Sounds. absent: Distended, Firm Additional comments: Epigastric TTP - Extremities Exam Extremities Exam: Full ROM, Normal Capillary Refill, Normal Inspection. absent : Joint Swelling, Pedal Edema - Back Exam Back Exam: NORMAL INSPECTION - Neurological Exam Neurological Exam: Alert, Awake, CN II-XII Intact, Normal Gait, Oriented x3 - Psychiatric Exam Psychiatric exam: Normal Affect, Normal Mood - Skin Skin Exam: Dry, Intact, Normal Color, Warm Assessment and Plan - Assessment and Plan (Free Text) Assessment: 41M w. cholecystitis -heme/onc recommends preop platelet transfusion if platelet <100k regarding thrombocytopenia -F/U manual platelet count for clumping -OR when medically cleared -c/w abx and pain management -will continue to follow -will d/w attending <Rupert Byrnes - Last Filed: 01/04/17 13:24> Subjective - Date & Time of Evaluation Time of Evaluation: 13:10 - Subjective Subjective: Patient was seen and examined at the bedside. Agree with resident's note above. Objective - Vital Signs/Intake and Output Vital Signs (last 24 hours): Temp Pulse Resp BP Pulse Ox 98.9 F 69 20 109/68 96 01/04/17 12:00 01/04/17 12:00 01/04/17 12:00 01/04/17 12:00 01/04/17 12:00 - Medications Medications: Current Medications Acetaminophen (Tylenol 325mg Tab) 650 mg PO Q4 PRN PRN Reason: Fever >100.4 F Last Admin: 01/03/17 01:53 Dose: 650 mg Acetaminophen (Tylenol 325mg Tab) 650 mg PO Q6 PRN PRN Reason: Pain, Mild (1-3) Last Admin: 01/03/17 20:49 Dose: 650 mg Hydromorphone HCl (Dilaudid) 1 mg IVP Q4 PRN PRN Reason: Pain, moderate (4-7) Sodium Chloride (Sodium Chloride 0.9%) 1,000 mls @ 150 mls/hr IV .Q6H40M [facility] Last Admin: 01/04/17 12:23 Dose: 150 mls/hr Metronidazole (Flagyl 500mg/100ml Ns) 100 mls @ 100 mls/hr IVPB Q8 [facility] Last Admin: 01/04/17 08:27 Dose: 100 mls/hr Piperacillin Sod/Tazobactam (Sod 3.375 gm/ Sodium Chloride) 100 mls @ 100 mls/ hr IVPB Q6 [facility] Last Admin: 01/04/17 09:06 Dose: 100 mls/hr Vancomycin HCl 1 gm/ Sodium (Chloride) 250 mls @ 166.667 mls/hr IVPB Q12 [facility] Last Admin: 01/04/17 08:27 Dose: 166.667 mls/hr Ondansetron HCl (Zofran Inj) 4 mg IVP Q4 PRN PRN Reason: Nausea/Vomiting Pantoprazole Sodium (Protonix Ec Tab) 40 mg PO DAILY [facility] Last Admin: 01/04/17 08:28 Dose: 40 mg - Labs Labs: 01/04/17 06:15 01/04/17 06:15 PT 11.2 Seconds (9.8-13.1) 01/04/17 06:15 INR 1.1 (0.9-1.2) 01/04/17 06:15 APTT 28.8 Seconds (25.6-37.1) 01/04/17 06:15 Assessment and Plan - Assessment and Plan (Free Text) Plan: - Continue diet - Pain control - Continue antibiotics - GI follow up - Monitor LFTs - Repeat labs in am - Will follow
[2017-01-04 09:23] LABS: ALT/SGPT 126 U/L (21-72); AST/SGOT 121 U/L (17-59)
--- NOTE | 2017-01-04 10:32 | CP.PCM.PN ---
Subjective - Date & Time of Evaluation Date of Evaluation: 01/04/17 Time of Evaluation: 10:30 - Subjective Subjective: still with pain Objective - Vital Signs/Intake and Output Vital Signs (last 24 hours): Temp Pulse Resp BP Pulse Ox 98.5 F 59 L 20 113/76 97 01/04/17 08:00 01/04/17 08:00 01/04/17 08:00 01/04/17 08:00 01/04/17 08:00 - Medications Medications: Current Medications Acetaminophen (Tylenol 325mg Tab) 650 mg PO Q4 PRN PRN Reason: Fever >100.4 F Last Admin: 01/03/17 01:53 Dose: 650 mg Acetaminophen (Tylenol 325mg Tab) 650 mg PO Q6 PRN PRN Reason: Pain, Mild (1-3) Last Admin: 01/03/17 20:49 Dose: 650 mg Hydromorphone HCl (Dilaudid) 1 mg IVP Q4 PRN PRN Reason: Pain, moderate (4-7) Sodium Chloride (Sodium Chloride 0.9%) 1,000 mls @ 150 mls/hr IV .Q6H40M [facility] Last Admin: 01/04/17 04:07 Dose: 150 mls/hr Metronidazole (Flagyl 500mg/100ml Ns) 100 mls @ 100 mls/hr IVPB Q8 [facility] Last Admin: 01/04/17 08:27 Dose: 100 mls/hr Piperacillin Sod/Tazobactam (Sod 3.375 gm/ Sodium Chloride) 100 mls @ 100 mls/ hr IVPB Q6 [facility] Last Admin: 01/04/17 09:06 Dose: 100 mls/hr Vancomycin HCl 1 gm/ Sodium (Chloride) 250 mls @ 166.667 mls/hr IVPB Q12 [facility] Last Admin: 01/04/17 08:27 Dose: 166.667 mls/hr Ondansetron HCl (Zofran Inj) 4 mg IVP Q4 PRN PRN Reason: Nausea/Vomiting Pantoprazole Sodium (Protonix Ec Tab) 40 mg PO DAILY [facility] Last Admin: 01/04/17 08:28 Dose: 40 mg - Labs Labs: 01/04/17 06:15 01/04/17 06:15 PT 11.2 Seconds (9.8-13.1) 01/04/17 06:15 INR 1.1 (0.9-1.2) 01/04/17 06:15 APTT 28.8 Seconds (25.6-37.1) 01/04/17 06:15 - GI/Abdominal Exam GI & Abdominal Exam: Soft, Tenderness, Normal Bowel Sounds Assessment and Plan - Assessment and Plan (Free Text) Assessment: 41 yo male with cholecystitis abx surgery when cleared pain control
[2017-01-04 12:31] LABS: HEPATITIS B SURFACE AG NEGATIVE (NEGATIVE)
[2017-01-04 12:36] LABS: HEPATITIS B CORE AB NEGATIVE (NEGATIVE)
[2017-01-04 12:48] LABS: HEPATITIS C ANTIBODY NEGATIVE (NEGATIVE)
[2017-01-04 13:05] LABS: FOLATE 5.7 ng/mL
--- NOTE | 2017-01-04 15:17 | CP.PCM.PN ---
Subjective - Date & Time of Evaluation Date of Evaluation: 01/04/17 Time of Evaluation: 14:45 - Subjective Subjective: Pt seen and examined. Claimed pain is much less but still on when taking deep breath Objective - Vital Signs/Intake and Output Vital Signs (last 24 hours): Temp Pulse Resp BP Pulse Ox 98.9 F 69 20 109/68 96 01/04/17 12:00 01/04/17 12:00 01/04/17 12:00 01/04/17 12:00 01/04/17 12:00 - Medications Medications: Current Medications Acetaminophen (Tylenol 325mg Tab) 650 mg PO Q4 PRN PRN Reason: Fever >100.4 F Last Admin: 01/03/17 01:53 Dose: 650 mg Acetaminophen (Tylenol 325mg Tab) 650 mg PO Q6 PRN PRN Reason: Pain, Mild (1-3) Last Admin: 01/03/17 20:49 Dose: 650 mg Hydromorphone HCl (Dilaudid) 1 mg IVP Q4 PRN PRN Reason: Pain, moderate (4-7) Sodium Chloride (Sodium Chloride 0.9%) 1,000 mls @ 150 mls/hr IV .Q6H40M [facility] Last Admin: 01/04/17 12:23 Dose: 150 mls/hr Metronidazole (Flagyl 500mg/100ml Ns) 100 mls @ 100 mls/hr IVPB Q8 [facility] Last Admin: 01/04/17 08:27 Dose: 100 mls/hr Piperacillin Sod/Tazobactam (Sod 3.375 gm/ Sodium Chloride) 100 mls @ 100 mls/ hr IVPB Q6 [facility] Last Admin: 01/04/17 09:06 Dose: 100 mls/hr Vancomycin HCl 1 gm/ Sodium (Chloride) 250 mls @ 166.667 mls/hr IVPB Q12 [facility] Last Admin: 01/04/17 08:27 Dose: 166.667 mls/hr Ondansetron HCl (Zofran Inj) 4 mg IVP Q4 PRN PRN Reason: Nausea/Vomiting Pantoprazole Sodium (Protonix Ec Tab) 40 mg PO DAILY [facility] Last Admin: 01/04/17 08:28 Dose: 40 mg - Labs Labs: 01/04/17 06:15 01/04/17 06:15 PT 11.2 Seconds (9.8-13.1) 01/04/17 06:15 INR 1.1 (0.9-1.2) 01/04/17 06:15 APTT 28.8 Seconds (25.6-37.1) 01/04/17 06:15 - Constitutional Appears: No Acute Distress - Head Exam Head Exam: NORMAL INSPECTION - Eye Exam Eye Exam: absent: Scleral icterus - ENT Exam ENT Exam: Mucous Membranes Moist - Neck Exam Neck Exam: absent: Meningismus - Respiratory Exam Respiratory Exam: absent: Rhonchi, Wheezes, Respiratory Distress - Cardiovascular Exam Cardiovascular Exam: REGULAR RHYTHM, +S1, +S2 - GI/Abdominal Exam GI & Abdominal Exam: Soft, Tenderness (mild tenderness on epigastric region on deep palpation) - Rectal Exam Rectal Exam: Deferred - Neurological Exam Neurological Exam: Alert, Oriented x3 - Psychiatric Exam Psychiatric exam: Normal Affect - Skin Skin Exam: Dry, Intact Assessment and Plan (1) Sepsis Status: Acute (2) Cholecystitis Status: Acute - Assessment and Plan (Free Text) Assessment: 41 yo male with no significant PMH came in because of epigastric and suprapubic pain accompanied with fever and chills. Abdominal sonogram showed cholelithiasis with acute cholecystitis supported by MRCP. Patient was admitted with Sepsis secondary to Acute Cholecystitis. (1) Sepsis blood culture grew Streptococcus Pyogenes Grp A continue Zosyn and Vanco as recommended by ID patient has been afebrile and has no lukocytosis ID consult with Dr Bae appreciated (2) Acute Cholecystitis cholecystectomy on hold because of thrombocytopenia awaiting clearance from medical associate, Dr Guzman (3) Thrombocytopenia probably secondary to infection or sepsis manual platelet ct: [address] Guzman
--- NOTE | 2017-01-04 18:34 | US ---
PROCEDURE: Bilateral lower extremity venous duplex Doppler. HISTORY: bilateral swelling of the legs COMPARISON: None available. TECHNIQUE: Bilateral common femoral, superficial femoral, popliteal and posterior tibial veins were evaluated. Flow was assessed with color Doppler, compressibility, assessment of phasic flow and augmentation response. FINDINGS: COMMON FEMORAL VEIN: Right CFV: Unremarkable. Left CFV: Unremarkable. SUPERFICIAL FEMORAL VEIN: Right SFV: Unremarkable. Left SFV: Unremarkable. POPLITEAL VEIN: Right Popliteal: Unremarkable. Left Popliteal: Unremarkable. POSTERIOR TIBIAL VEIN: Right PTV: Unremarkable. Left PTV: Unremarkable. OTHER FINDINGS: None. IMPRESSION: No evidence of deep venous thrombosis.
[2017-01-05] MEDS: metroNIDAZOLE 500mg/100ml NS 100 ML IVPB SCH ×3 (02:56→18:20)
[2017-01-05] MEDS: Piperacillin/Tazobact 3.375 GM in Sodium Chloride 0.9% 100 ML IVPB SCH ×5 (03:57→23:58)
[2017-01-05 05:26] LABS: BASO % 0.4 % (0.0-2.0); EOS % 0.4 % (0.0-4.0); HEMOGLOBIN 11.2 g/dL (12.0-18.0); LYMPH # 2.1 K/uL (1.0-4.3); LYMPH % 18.7 % (20.0-40.0); MEAN CELL VOLUME 90.4 fl (80.0-94.0); MEAN CORPUSCULAR HEMOGLOBIN 30.3 pg (27.0-31.0); MEAN CORPUSCULAR HGB CONC 33.5 g/dL (33.0-37.0); MONO # 1.2 K/uL (0.0-0.8); MONO % 10.3 % (0.0-10.0); NEUT # 7.9 K/uL (1.8-7.0); NEUT % 70.2 % (50.0-75.0); RBC 3.7 Mil/uL (4.40-5.90); RED CELL DISTRIBUTION WIDTH 14.8 % (11.5-14.5); WHITE BLOOD COUNT 11.2 K/uL (4.8-10.8)
[2017-01-05 05:51] LABS: ALBUMIN 2.7 g/dL (3.5-5.0); ALT/SGPT 173 U/L (21-72); AST/SGOT 203 U/L (17-59); BLOOD UREA NITROGEN 11 mg/dl (9-20); CALCIUM 7.7 mg/dL (8.4-10.2); GFR AFRICAN-AMERICAN > 60; GFR NON-AFRICAN AMERICAN > 60
--- NOTE | 2017-01-05 07:20 | CP.PCM.PN ---
<Candido Dixon - Last Filed: 01/05/17 10:36> Subjective - Date & Time of Evaluation Date of Evaluation: 01/05/17 Time of Evaluation: 07:17 - Subjective Subjective: Surgery: Dr. Byrnes Pt seen and examined. Continues to have abd pain. Tolerating diet. No N/V. No F/ C Objective - Vital Signs/Intake and Output Vital Signs (last 24 hours): Temp Pulse Resp BP Pulse Ox 98.6 F 57 L 20 114/70 95 01/05/17 05:12 01/05/17 05:12 01/05/17 05:12 01/05/17 05:12 01/05/17 05:12 Intake and Output: 01/05/17 01/05/17 06:59 18:59 Intake Total 1750 Output Total 800 Balance 950 - Medications Medications: Current Medications Acetaminophen (Tylenol 325mg Tab) 650 mg PO Q4 PRN PRN Reason: Fever >100.4 F Last Admin: 01/03/17 01:53 Dose: 650 mg Acetaminophen (Tylenol 325mg Tab) 650 mg PO Q6 PRN PRN Reason: Pain, Mild (1-3) Last Admin: 01/03/17 20:49 Dose: 650 mg Sodium Chloride (Sodium Chloride 0.9%) 1,000 mls @ 150 mls/hr IV .Q6H40M [facility] Last Admin: 01/04/17 18:47 Dose: Not Given Metronidazole (Flagyl 500mg/100ml Ns) 100 mls @ 100 mls/hr IVPB Q8 [facility] Last Admin: 01/05/17 02:56 Dose: 100 mls/hr Piperacillin Sod/Tazobactam (Sod 3.375 gm/ Sodium Chloride) 100 mls @ 100 mls/ hr IVPB Q6 [facility] Last Admin: 01/05/17 03:57 Dose: 100 mls/hr Vancomycin HCl 1 gm/ Sodium (Chloride) 250 mls @ 166.667 mls/hr IVPB Q12 [facility] Last Admin: 01/04/17 21:00 Dose: 166.667 mls/hr Ondansetron HCl (Zofran Inj) 4 mg IVP Q4 PRN PRN Reason: Nausea/Vomiting Pantoprazole Sodium (Protonix Ec Tab) 40 mg PO DAILY [facility] Last Admin: 01/04/17 08:28 Dose: 40 mg - Labs Labs: 01/05/17 04:20 01/05/17 04:20 PT 11.2 Seconds (9.8-13.1) 01/04/17 06:15 INR 1.1 (0.9-1.2) 01/04/17 06:15 APTT 28.8 Seconds (25.6-37.1) 01/04/17 06:15 - Constitutional Appears: Non-toxic, No Acute Distress - Head Exam Head Exam: ATRAUMATIC, NORMOCEPHALIC - Eye Exam Eye Exam: EOMI, Scleral icterus - ENT Exam ENT Exam: Mucous Membranes Moist - Neck Exam Neck Exam: Full ROM - Respiratory Exam Respiratory Exam: NORMAL BREATHING PATTERN. absent: Accessory Muscle Use, Respiratory Distress - GI/Abdominal Exam GI & Abdominal Exam: Soft, Tenderness (epigastric). absent: Distended, Firm, Guarding, Rigid, Rebound - Extremities Exam Extremities Exam: Calf Tenderness, Pedal Edema - Neurological Exam Neurological Exam: Alert, Awake, Oriented x3 Assessment and Plan - Assessment and Plan (Free Text) Assessment: 41M w. cholecystitis -LFTs/Tbili trending up, recommend ERCP -Per heme/onc, pt is clear for surgery from their standpoint -c/w abx -Will plan for surgery when LFTs are trending down / WNL -Ok to feed -d/w attending Zemaitis PGY3 <Rupert Byrnes - Last Filed: 01/05/17 10:42> Subjective - Date & Time of Evaluation Time of Evaluation: 09:40 - Subjective Subjective: Patient was seen and examined at the bedside. Agree with resident's note above. Objective - Vital Signs/Intake and Output Vital Signs (last 24 hours): Temp Pulse Resp BP Pulse Ox 98.9 F 56 L 20 115/70 95 01/05/17 08:00 01/05/17 08:00 01/05/17 08:00 01/05/17 08:00 01/05/17 08:00 Intake and Output: 01/05/17 01/05/17 06:59 18:59 Intake Total 1750 Output Total 800 Balance 950 - Medications Medications: Current Medications Metronidazole (Flagyl 500mg/100ml Ns) 100 mls @ 100 mls/hr IVPB Q8 [facility] Last Admin: 01/05/17 08:53 Dose: 100 mls/hr Piperacillin Sod/Tazobactam (Sod 3.375 gm/ Sodium Chloride) 100 mls @ 100 mls/ hr IVPB Q6 [facility] Last Admin: 01/05/17 10:22 Dose: 100 mls/hr Vancomycin HCl 1 gm/ Sodium (Chloride) 250 mls @ 166.667 mls/hr IVPB Q12 [facility] Last Admin: 01/05/17 08:56 Dose: 166.667 mls/hr Potassium Chloride/Sodium Chloride (Potassium Chl 20 Meq In Ns) 1,000 mls @ 150 mls/hr IV .Q6H40M [facility] Morphine Sulfate (Morphine) 4 mg IVP Q4 PRN PRN Reason: Pain, moderate (4-7) Ondansetron HCl (Zofran Inj) 4 mg IVP Q4 PRN PRN Reason: Nausea/Vomiting Pantoprazole Sodium (Protonix Ec Tab) 40 mg PO DAILY [facility] Last Admin: 01/05/17 08:58 Dose: 40 mg - Labs Labs: 01/05/17 04:20 01/05/17 04:20 PT 11.2 Seconds (9.8-13.1) 01/04/17 06:15 INR 1.1 (0.9-1.2) 01/04/17 06:15 APTT 28.8 Seconds (25.6-37.1) 01/04/17 06:15
[2017-01-05] MEDS ORDERED: Morphine 4 MG/ML VIAL IVP PRN (08:02)
[2017-01-05] MEDS: Pantoprazole 40 mg EC Tab PO SCH (08:58)
[2017-01-05] MEDS: Potassium CL 10 MEQ/50 ML 50 ML IVPB SCH ×2 (11:37→12:00)
--- NOTE | 2017-01-05 11:41 | CP.PCM.PN ---
Subjective - Date & Time of Evaluation Date of Evaluation: 01/05/17 Time of Evaluation: 11:00 - Subjective Subjective: No fever no CP no SOB mild epigastric pain no N/V Objective - Vital Signs/Intake and Output Vital Signs (last 24 hours): Temp Pulse Resp BP Pulse Ox 98.9 F 56 L 20 115/70 95 01/05/17 08:00 01/05/17 08:00 01/05/17 08:00 01/05/17 08:00 01/05/17 08:00 Intake and Output: 01/05/17 01/05/17 06:59 18:59 Intake Total 1750 Output Total 800 Balance 950 - Medications Medications: Current Medications Metronidazole (Flagyl 500mg/100ml Ns) 100 mls @ 100 mls/hr IVPB Q8 [facility] Last Admin: 01/05/17 08:53 Dose: 100 mls/hr Piperacillin Sod/Tazobactam (Sod 3.375 gm/ Sodium Chloride) 100 mls @ 100 mls/ hr IVPB Q6 [facility] Last Admin: 01/05/17 03:57 Dose: 100 mls/hr Vancomycin HCl 1 gm/ Sodium (Chloride) 250 mls @ 166.667 mls/hr IVPB Q12 [facility] Last Admin: 01/05/17 08:56 Dose: 166.667 mls/hr Potassium Chloride/Sodium Chloride (Potassium Chl 20 Meq In Ns) 1,000 mls @ 150 mls/hr IV .Q6H40M [facility] Morphine Sulfate (Morphine) 4 mg IVP Q4 PRN PRN Reason: Pain, moderate (4-7) Ondansetron HCl (Zofran Inj) 4 mg IVP Q4 PRN PRN Reason: Nausea/Vomiting Pantoprazole Sodium (Protonix Ec Tab) 40 mg PO DAILY [facility] Last Admin: 01/05/17 08:58 Dose: 40 mg - Labs Labs: 01/05/17 04:20 01/05/17 04:20 PT 11.2 Seconds (9.8-13.1) 01/04/17 06:15 INR 1.1 (0.9-1.2) 01/04/17 06:15 APTT 28.8 Seconds (25.6-37.1) 01/04/17 06:15 - Constitutional Appears: No Acute Distress - Head Exam Head Exam: NORMAL INSPECTION, NORMOCEPHALIC - Eye Exam Eye Exam: EOMI, Normal appearance, PERRL Pupil Exam: NORMAL ACCOMODATION - ENT Exam ENT Exam: Mucous Membranes Moist, Normal External Ear Exam - Neck Exam Neck Exam: Full ROM. absent: Meningismus - Respiratory Exam Respiratory Exam: NORMAL BREATHING PATTERN. absent: Rales, Wheezes, Respiratory Distress - Cardiovascular Exam Cardiovascular Exam: REGULAR RHYTHM, +S1, +S2 - GI/Abdominal Exam GI & Abdominal Exam: Soft, Tenderness (mild epigastric tenderness), Normal Bowel Sounds - Extremities Exam Extremities Exam: Full ROM, Normal Capillary Refill. absent: Calf Tenderness, Pedal Edema - Back Exam Back Exam: Full ROM. absent: CVA tenderness (L), CVA tenderness (R), vertebral tenderness - Neurological Exam Neurological Exam: Alert, Awake, CN II-XII Intact, Oriented x3 Neuro motor strength exam: Left Upper Extremity: 5, Right Upper Extremity: 5, Left Lower Extremity: 5, Right Lower Extremity: 5 - Psychiatric Exam Psychiatric exam: Normal Affect, Normal Mood - Skin Skin Exam: Dry, Normal Color, Warm Assessment and Plan (1) Sepsis Status: Acute (2) Acute cholecystitis Status: Acute (3) Thrombocytopenia Status: Acute (4) Abnormal LFTs (liver function tests) Status: Acute - Assessment and Plan (Free Text) Assessment: 41 yo male with no significant PMH came in because of epigastric and suprapubic pain accompanied by fever and chills. Abdominal sonogram showed cholelithiasis with acute cholecystitis. Patient was admitted with Sepsis secondary to Acute Cholecystitis. MRCP: Cholelithiasis. Thickened gallbladder wall. Pericholecystic fluid. Findings concerning for acute cholecystitis. Please correlate clinically. Consider evaluation with radionuclide hepatobiliary scan if clinically warranted. No intra or extrahepatic biliary ductal dilatation. No dilatation of the common bile duct. There is no visualization of the most distal aspect of the common bile duct with no smooth tapering. The this may be due to artifact or may reflect intrinsic or extrinsic mass effect such as distal common duct stone, ampullary neoplasm or pancreatic neoplasm. Trace ascites. (1) Sepsis sec Acute Cholecystitis w/ Strep pyogenes blood culture grew Strep pyogenes continue Zosyn and Flagyl plus Vanco as recommended by ID Pt is now afebrile, WBC trended down Fibrinogen normal (2) Acute Cholecystitis Surgery consulted- plan for Lap Angela once LFTs trend down, als rec ERCP GI consulted cont IV abx Pain mgt (3) Thrombocytopenia probably secondary to infection or sepsis hematology consult with Dr Guzman s/p Platelet transfusion x 1 unit safe for surgery as long as Platelet is greater than 100 Platelet 123 today 4. Abn LFTs sec to Cholecystitis Lap Angela once LFTs better Hepatitis screen negative DVT proph -no anticoag sec to thrombocytopenia
--- NOTE | 2017-01-05 13:12 | CP.PCM.PN ---
Subjective - Date & Time of Evaluation Date of Evaluation: 01/05/17 Time of Evaluation: 13:05 - Subjective Subjective: pain improved Objective - Vital Signs/Intake and Output Vital Signs (last 24 hours): Temp Pulse Resp BP Pulse Ox 98.4 F 55 L 18 115/72 98 01/05/17 12:24 01/05/17 12:24 01/05/17 12:24 01/05/17 12:24 01/05/17 12:24 Intake and Output: 01/05/17 01/05/17 06:59 18:59 Intake Total 1750 Output Total 800 Balance 950 - Medications Medications: Current Medications Metronidazole (Flagyl 500mg/100ml Ns) 100 mls @ 100 mls/hr IVPB Q8 [facility] Last Admin: 01/05/17 08:53 Dose: 100 mls/hr Piperacillin Sod/Tazobactam (Sod 3.375 gm/ Sodium Chloride) 100 mls @ 100 mls/ hr IVPB Q6 [facility] [place] Last Admin: 01/05/17 03:57 Dose: 100 mls/hr Vancomycin HCl 1 gm/ Sodium (Chloride) 250 mls @ 166.667 mls/hr IVPB Q12 [facility] [place] Last Admin: 01/05/17 08:56 Dose: 166.667 mls/hr Potassium Chloride/Sodium Chloride (Potassium Chl 20 Meq In Ns) 1,000 mls @ 150 mls/hr IV .Q6H40M [facility] [place] Morphine Sulfate (Morphine) 4 mg IVP Q4 PRN PRN Reason: Pain, moderate (4-7) Ondansetron HCl (Zofran Inj) 4 mg IVP Q4 PRN PRN Reason: Nausea/Vomiting Pantoprazole Sodium (Protonix Ec Tab) 40 mg PO DAILY [facility] [place] Last Admin: 01/05/17 08:58 Dose: 40 mg - Labs Labs: 01/05/17 04:20 01/05/17 04:20 PT 11.2 Seconds (9.8-13.1) 01/04/17 06:15 INR 1.1 (0.9-1.2) 01/04/17 06:15 APTT 28.8 Seconds (25.6-37.1) 01/04/17 06:15 - GI/Abdominal Exam GI & Abdominal Exam: Soft, Tenderness, Normal Bowel Sounds Assessment and Plan - Assessment and Plan (Free Text) Assessment: 41 yo male with cholecystitis abx surgical evaluation
[2017-01-05] MEDS: Potassium Chl 20 mEq in NS 1,000 ML IV SCH ×3 (13:39→20:40)
--- NOTE | 2017-01-05 14:39 | CP.PCM.PN ---
Subjective - Date & Time of Evaluation Date of Evaluation: 01/05/17 Time of Evaluation: 14:33 - Subjective Subjective: He is clinically stable, feels "tightness" in abdomen. Afebrile now, last fever spike was on 01/03. Denies nausea, vomiting. No bleeding. Stool ocult was positive. Objective - Vital Signs/Intake and Output Vital Signs (last 24 hours): Temp Pulse Resp BP Pulse Ox 98.4 F 55 L 18 115/72 98 01/05/17 12:24 01/05/17 12:24 01/05/17 12:24 01/05/17 12:24 01/05/17 12:24 Intake and Output: 01/05/17 01/05/17 06:59 18:59 Intake Total 1750 Output Total 800 Balance 950 - Medications Medications: Current Medications Metronidazole (Flagyl 500mg/100ml Ns) 100 mls @ 100 mls/hr IVPB Q8 [facility] Last Admin: 01/05/17 08:53 Dose: 100 mls/hr Piperacillin Sod/Tazobactam (Sod 3.375 gm/ Sodium Chloride) 100 mls @ 100 mls/ hr IVPB Q6 [facility] Last Admin: 01/05/17 10:00 Dose: Not Given Vancomycin HCl 1 gm/ Sodium (Chloride) 250 mls @ 166.667 mls/hr IVPB Q12 [facility] Last Admin: 01/05/17 08:56 Dose: 166.667 mls/hr Potassium Chloride/Sodium Chloride (Potassium Chl 20 Meq In Ns) 1,000 mls @ 150 mls/hr IV .Q6H40M [facility] Last Admin: 01/05/17 13:39 Dose: 150 mls/hr Iron Sucrose 200 mg/ Sodium (Chloride) 110 mls @ 110 mls/hr IVPB DAILY [facility] Stop: 01/08/17 14:31 Morphine Sulfate (Morphine) 4 mg IVP Q4 PRN PRN Reason: Pain, moderate (4-7) Ondansetron HCl (Zofran Inj) 4 mg IVP Q4 PRN PRN Reason: Nausea/Vomiting Pantoprazole Sodium (Protonix Ec Tab) 40 mg PO DAILY [facility] Last Admin: 01/05/17 08:58 Dose: 40 mg - Labs Labs: 01/05/17 04:20 01/05/17 04:20 PT 11.2 Seconds (9.8-13.1) 01/04/17 06:15 INR 1.1 (0.9-1.2) 01/04/17 06:15 APTT 28.8 Seconds (25.6-37.1) 01/04/17 06:15 - Head Exam Head Exam: ATRAUMATIC, NORMAL INSPECTION - Eye Exam Eye Exam: EOMI, PERRL, Scleral icterus - ENT Exam ENT Exam: Mucous Membranes Moist - Neck Exam Neck Exam: absent: Lymphadenopathy - Respiratory Exam Respiratory Exam: Clear to Ausculation Bilateral - Cardiovascular Exam Cardiovascular Exam: REGULAR RHYTHM - GI/Abdominal Exam GI & Abdominal Exam: Soft, Tenderness, Normal Bowel Sounds. absent: Organomegaly - Extremities Exam Extremities Exam: Pedal Edema Additional comments: LUE swelling (mild) Assessment and Plan - Assessment and Plan (Free Text) Assessment: Thrombocytopenia Leucocytosis is getting better now. Hb is stable overall. Platelet count has also improved after platelet transfusion, though it is still at 123. Manual platelet count did not show clumping and other work up for low platelet count is so far non suggestive. We will have to follow up his platelet count in future to see if it recovers once infection/inflammation is controlled. He also has guaiac positive stools and iron def. He does give a history of hemorrhoids but will need GI work up to evaluate source of bleeding (once stable ) Will start him on IV Venofer 200 mg daily while in hospital. He is ok for surgery from hematological stand point as long as his platelet count remains >100k. Medhat Guzman MD
[2017-01-06] MEDS: metroNIDAZOLE 500mg/100ml NS 100 ML IVPB SCH ×3 (01:12→16:17)
[2017-01-06] MEDS: Piperacillin/Tazobact 3.375 GM in Sodium Chloride 0.9% 100 ML IVPB SCH ×4 (04:11→22:45)
[2017-01-06] MEDS: Potassium Chl 20 mEq in NS 1,000 ML IV SCH ×4 (04:14→20:58)
[2017-01-06 07:55] LABS: HEMOGLOBIN 11.5 g/dL (12.0-18.0); MEAN CELL VOLUME 90.6 fl (80.0-94.0); MEAN CORPUSCULAR HEMOGLOBIN 30.7 pg (27.0-31.0); MEAN CORPUSCULAR HGB CONC 33.9 g/dL (33.0-37.0); RBC 3.74 Mil/uL (4.40-5.90); RED CELL DISTRIBUTION WIDTH 14.7 % (11.5-14.5); WHITE BLOOD COUNT 12.1 K/uL (4.8-10.8)
[2017-01-06 08:29] LABS: ALB/GLOB RATIO 0.9 (1.0-2.1); ALBUMIN 2.6 g/dL (3.5-5.0); ALT/SGPT 229 U/L (21-72); AST/SGOT 248 U/L (17-59); BLOOD UREA NITROGEN 11 mg/dl (9-20); CALCIUM 7.5 mg/dL (8.4-10.2); GFR AFRICAN-AMERICAN > 60; GFR NON-AFRICAN AMERICAN > 60
[2017-01-06] MEDS: Pantoprazole 40 mg EC Tab PO SCH (08:29)
[2017-01-06] MEDS ORDERED: Potassium Chloride 20 mEq/15 ml LIQ UD PO ONE (09:20)
--- NOTE | 2017-01-06 10:55 | CP.PCM.PN ---
Subjective - Date & Time of Evaluation Date of Evaluation: 01/06/17 Time of Evaluation: 10:00 - Subjective Subjective: Pt is sitted on a chair Feels better No fever minimal epigastric pqain suad when he eats no CP no SOB no N/V Objective - Vital Signs/Intake and Output Vital Signs (last 24 hours): Temp Pulse Resp BP Pulse Ox 98.5 F 65 18 115/65 97 01/06/17 08:20 01/06/17 08:20 01/06/17 08:20 01/06/17 08:20 01/06/17 08:20 Intake and Output: 01/06/17 01/06/17 06:59 18:59 Intake Total 1750 Output Total 1000 Balance 750 - Medications Medications: Current Medications Metronidazole (Flagyl 500mg/100ml Ns) 100 mls @ 100 mls/hr IVPB Q8 [facility] Last Admin: 01/06/17 08:28 Dose: 100 mls/hr Piperacillin Sod/Tazobactam (Sod 3.375 gm/ Sodium Chloride) 100 mls @ 100 mls/ hr IVPB Q6 [facility] Last Admin: 01/06/17 10:00 Dose: 100 mls/hr Vancomycin HCl 1 gm/ Sodium (Chloride) 250 mls @ 166.667 mls/hr IVPB Q12 [facility] Last Admin: 01/06/17 09:57 Dose: 166.667 mls/hr Potassium Chloride/Sodium Chloride (Potassium Chl 20 Meq In Ns) 1,000 mls @ 150 mls/hr IV .Q6H40M [facility] Last Admin: 01/06/17 10:05 Dose: 150 mls/hr Iron Sucrose 200 mg/ Sodium (Chloride) 110 mls @ 110 mls/hr IVPB DAILY@2000 [facility] Last Admin: 01/05/17 21:00 Dose: 110 mls/hr Morphine Sulfate (Morphine) 4 mg IVP Q4 PRN PRN Reason: Pain, moderate (4-7) Ondansetron HCl (Zofran Inj) 4 mg IVP Q4 PRN PRN Reason: Nausea/Vomiting Pantoprazole Sodium (Protonix Ec Tab) 40 mg PO DAILY [facility] Last Admin: 01/06/17 08:29 Dose: 40 mg - Labs Labs: 01/06/17 06:00 01/06/17 06:00 PT 11.2 Seconds (9.8-13.1) 01/04/17 06:15 INR 1.1 (0.9-1.2) 01/04/17 06:15 APTT 28.8 Seconds (25.6-37.1) 01/04/17 06:15 - Constitutional Appears: No Acute Distress - Head Exam Head Exam: NORMAL INSPECTION, NORMOCEPHALIC - Eye Exam Eye Exam: EOMI, Normal appearance, PERRL Pupil Exam: NORMAL ACCOMMODATION - ENT Exam ENT Exam: Mucous Membranes Moist, Normal External Ear Exam - Neck Exam Neck Exam: Full ROM. absent: Meningismus - Respiratory Exam Respiratory Exam: NORMAL BREATHING PATTERN. absent: Rales, Wheezes, Respiratory Distress - Cardiovascular Exam Cardiovascular Exam: REGULAR RHYTHM, +S1, +S2 - GI/Abdominal Exam GI & Abdominal Exam: Soft, Tenderness (mild epigastric tenderness), Normal Bowel Sounds - Extremities Exam Extremities Exam: Full ROM, Normal Capillary Refill. absent: Calf Tenderness, Pedal Edema - Back Exam Back Exam: Full ROM. absent: CVA tenderness (L), CVA tenderness (R), vertebral tenderness - Neurological Exam Neurological Exam: Alert, Awake, CN II-XII Intact, Oriented x3 Neuro motor strength exam: Left Upper Extremity: 5, Right Upper Extremity: 5, Left Lower Extremity: 5, Right Lower Extremity: 5 - Psychiatric Exam Psychiatric exam: Normal Affect, Normal Mood - Skin Skin Exam: Dry, Normal Color, Warm Assessment and Plan (1) Sepsis Status: Acute (2) Acute cholecystitis Status: Acute (3) Thrombocytopenia Status: Acute (4) Abnormal LFTs (liver function tests) Status: Acute - Assessment and Plan (Free Text) Assessment: 41 yo male with no significant PMH came in because of epigastric and suprapubic pain accompanied by fever and chills. Abdominal sonogram showed cholelithiasis with acute cholecystitis. Patient was admitted with Sepsis secondary to Acute Cholecystitis. MRCP: Cholelithiasis. Thickened gallbladder wall. Pericholecystic fluid. Findings concerning for acute cholecystitis. Please correlate clinically. Consider evaluation with radionuclide hepatobiliary scan if clinically warranted. No intra or extrahepatic biliary ductal dilatation. No dilatation of the common bile duct. There is no visualization of the most distal aspect of the common bile duct with no smooth tapering. The this may be due to artifact or may reflect intrinsic or extrinsic mass effect such as distal common duct stone, ampullary neoplasm or pancreatic neoplasm. Trace ascites. (1) Sepsis sec Acute Cholecystitis w/ Strep pyogenes blood culture grew Strep pyogenes continue Zosyn and Flagyl plus Vanco as recommended by ID Pt is now afebrile, WBC trended down Fibrinogen normal (2) Acute Cholecystitis Surgery consulted- plan for Lap Angela once LFTs trend down, also rec ERCP GI consulted cont IV abx Pain mgt (3) Thrombocytopenia probably secondary to infection or sepsis hematology consult with Dr Heidi ferris for surgery as long as Platelet is greater than 100 s/p Platelet transfusion x 1 unit Platelet normalized today 4. Abn LFTs sec to Cholecystitis Lap Angela once LFTs better Hepatitis screen negative TBili better today 3.8 from 5.4 DVT proph -no anticoag sec to thrombocytopenia
--- NOTE | 2017-01-06 14:38 | CP.PCM.PN ---
Subjective - Date & Time of Evaluation Date of Evaluation: 01/06/17 Time of Evaluation: 07:00 - Subjective Subjective: GENERAL SURGERY PROGRESS NOTE FOR DR. BRAVO Patient seen and examined at bedside. He denies abdominal pain. He is tolerating his low fat diet and denies nausea or vomiting. Objective - Vital Signs/Intake and Output Vital Signs (last 24 hours): Temp Pulse Resp BP Pulse Ox 98.3 F 73 20 104/63 98 01/06/17 12:10 01/06/17 12:10 01/06/17 12:10 01/06/17 12:10 01/06/17 12:10 Intake and Output: 01/06/17 01/06/17 06:59 18:59 Intake Total 1750 Output Total 1000 Balance 750 - Medications Medications: Current Medications Metronidazole (Flagyl 500mg/100ml Ns) 100 mls @ 100 mls/hr IVPB Q8 [facility] Last Admin: 01/06/17 08:28 Dose: 100 mls/hr Piperacillin Sod/Tazobactam (Sod 3.375 gm/ Sodium Chloride) 100 mls @ 100 mls/ hr IVPB Q6 [facility] Last Admin: 01/06/17 10:00 Dose: 100 mls/hr Vancomycin HCl 1 gm/ Sodium (Chloride) 250 mls @ 166.667 mls/hr IVPB Q12 [facility] Last Admin: 01/06/17 09:57 Dose: 166.667 mls/hr Iron Sucrose 200 mg/ Sodium (Chloride) 110 mls @ 110 mls/hr IVPB DAILY@2000 [facility] Last Admin: 01/05/17 21:00 Dose: 110 mls/hr Potassium Chloride/Sodium Chloride (Potassium Chl 20 Meq In Ns) 1,000 mls @ 125 mls/hr IV .Q8H [facility] Last Admin: 01/06/17 12:44 Dose: 125 mls/hr Morphine Sulfate (Morphine) 4 mg IVP Q4 PRN PRN Reason: Pain, moderate (4-7) Ondansetron HCl (Zofran Inj) 4 mg IVP Q4 PRN PRN Reason: Nausea/Vomiting Pantoprazole Sodium (Protonix Ec Tab) 40 mg PO DAILY [facility] Last Admin: 01/06/17 08:29 Dose: 40 mg - Labs Labs: 01/06/17 06:00 01/06/17 06:00 PT 11.2 Seconds (9.8-13.1) 01/04/17 06:15 INR 1.1 (0.9-1.2) 01/04/17 06:15 APTT 28.8 Seconds (25.6-37.1) 01/04/17 06:15 - Constitutional Appears: Non-toxic, No Acute Distress - Head Exam Head Exam: ATRAUMATIC, NORMAL INSPECTION - Eye Exam Eye Exam: EOMI - Respiratory Exam Respiratory Exam: NORMAL BREATHING PATTERN. absent: Respiratory Distress - Cardiovascular Exam Cardiovascular Exam: +S1, +S2 - GI/Abdominal Exam GI & Abdominal Exam: Soft, Tenderness (mild tenderness epigastric). absent: Distended, Firm, Guarding, Rigid, Rebound - Neurological Exam Neurological Exam: Alert, Awake, Oriented x3 - Psychiatric Exam Psychiatric exam: Normal Affect, Normal Mood - Skin Skin Exam: Normal Color, Warm Assessment and Plan - Assessment and Plan (Free Text) Assessment: 41yo M with cholecystitis and thrombocytopenia - Platelets improved to 172 today - Per heme/onc, pt clear for OR as long as platelets >100k - T bili decreased to 3.8 today from 5.4 yesterday - AST increased to 248 from 203 - ALT increased to 229 from 173 - Alk phos increased to 302 - Recommend ERCP due to elevated bilirubin and LFTs - Will plan for OR once bilirubin decreases more and LFTs decrease - Discussed plan with Dr. Brandyn Holder PGY-3
--- NOTE | 2017-01-06 18:44 | CP.PCM.PN ---
Subjective - Date & Time of Evaluation Date of Evaluation: 01/06/17 Time of Evaluation: 18:44 - Subjective Subjective: ID NOTE AWAITING SURGERY CONTINUE SAME RX Objective - Vital Signs/Intake and Output Vital Signs (last 24 hours): Temp Pulse Resp BP Pulse Ox 99.0 F 58 L 18 119/71 99 01/06/17 16:03 01/06/17 16:03 01/06/17 16:03 01/06/17 16:03 01/06/17 16:03 Intake and Output: 01/06/17 01/06/17 06:59 18:59 Intake Total 1750 2450 Output Total 1000 Balance 750 2450 - Medications Medications: Current Medications Metronidazole (Flagyl 500mg/100ml Ns) 100 mls @ 100 mls/hr IVPB Q8 [facility] Last Admin: 01/06/17 16:17 Dose: 100 mls/hr Piperacillin Sod/Tazobactam (Sod 3.375 gm/ Sodium Chloride) 100 mls @ 100 mls/ hr IVPB Q6 [facility] Last Admin: 01/06/17 15:00 Dose: 100 mls/hr Vancomycin HCl 1 gm/ Sodium (Chloride) 250 mls @ 166.667 mls/hr IVPB Q12 [facility] Last Admin: 01/06/17 09:57 Dose: 166.667 mls/hr Iron Sucrose 200 mg/ Sodium (Chloride) 110 mls @ 110 mls/hr IVPB DAILY@2000 [facility] Last Admin: 01/05/17 21:00 Dose: 110 mls/hr Potassium Chloride/Sodium Chloride (Potassium Chl 20 Meq In Ns) 1,000 mls @ 125 mls/hr IV .Q8H [facility] Last Admin: 01/06/17 12:44 Dose: 125 mls/hr Morphine Sulfate (Morphine) 4 mg IVP Q4 PRN PRN Reason: Pain, moderate (4-7) Ondansetron HCl (Zofran Inj) 4 mg IVP Q4 PRN PRN Reason: Nausea/Vomiting Pantoprazole Sodium (Protonix Ec Tab) 40 mg PO DAILY [facility] Last Admin: 01/06/17 08:29 Dose: 40 mg - Labs Labs: 01/06/17 06:00 01/06/17 06:00 PT 11.2 Seconds (9.8-13.1) 01/04/17 06:15 INR 1.1 (0.9-1.2) 01/04/17 06:15 APTT 28.8 Seconds (25.6-37.1) 01/04/17 06:15
[2017-01-07] MEDS: metroNIDAZOLE 500mg/100ml NS 100 ML IVPB SCH ×3 (00:53→16:08)
[2017-01-07] MEDS: Potassium Chl 20 mEq in NS 1,000 ML IV SCH ×3 (04:14→19:45)
[2017-01-07] MEDS: Piperacillin/Tazobact 3.375 GM in Sodium Chloride 0.9% 100 ML IVPB SCH ×4 (04:14→23:16)
[2017-01-07 07:42] LABS: HEMOGLOBIN 11.3 g/dL (12.0-18.0); MEAN CELL VOLUME 90.9 fl (80.0-94.0); MEAN CORPUSCULAR HEMOGLOBIN 30.1 pg (27.0-31.0); MEAN CORPUSCULAR HGB CONC 33.1 g/dL (33.0-37.0); RBC 3.75 Mil/uL (4.40-5.90); RED CELL DISTRIBUTION WIDTH 15.2 % (11.5-14.5); WHITE BLOOD COUNT 11.1 K/uL (4.8-10.8)
[2017-01-07 07:43] LABS: ALB/GLOB RATIO 0.9 (1.0-2.1); ALBUMIN 2.7 g/dL (3.5-5.0); ALT/SGPT 219 U/L (21-72); AST/SGOT 156 U/L (17-59); BLOOD UREA NITROGEN 8 mg/dl (9-20); CALCIUM 7.9 mg/dL (8.4-10.2); GFR AFRICAN-AMERICAN > 60; GFR NON-AFRICAN AMERICAN > 60
--- NOTE | 2017-01-07 08:03 | CP.PCM.PN ---
Subjective - Date & Time of Evaluation Date of Evaluation: 01/07/17 Time of Evaluation: 07:59 - Subjective Subjective: General Surgery - Dr. Ahumada Pt S&E. [facility]. Pt denies any abdominal pain currently. He is tolerating low fat diet. No N/V, F/C, SOB/CP. Objective - Vital Signs/Intake and Output Vital Signs (last 24 hours): Temp Pulse Resp BP Pulse Ox 98.5 F 58 L 18 110/73 95 01/07/17 05:23 01/07/17 05:23 01/07/17 05:23 01/07/17 05:23 01/07/17 05:23 - Medications Medications: Current Medications Metronidazole (Flagyl 500mg/100ml Ns) 100 mls @ 100 mls/hr IVPB Q8 [facility] Last Admin: 01/07/17 00:53 Dose: 100 mls/hr Piperacillin Sod/Tazobactam (Sod 3.375 gm/ Sodium Chloride) 100 mls @ 100 mls/ hr IVPB Q6 [facility] Last Admin: 01/07/17 04:14 Dose: 100 mls/hr Vancomycin HCl 1 gm/ Sodium (Chloride) 250 mls @ 166.667 mls/hr IVPB Q12 [facility] Last Admin: 01/06/17 20:58 Dose: 166.667 mls/hr Iron Sucrose 200 mg/ Sodium (Chloride) 110 mls @ 110 mls/hr IVPB DAILY@2000 [facility] Last Admin: 01/06/17 22:45 Dose: 110 mls/hr Potassium Chloride/Sodium Chloride (Potassium Chl 20 Meq In Ns) 1,000 mls @ 125 mls/hr IV .Q8H [facility] Last Admin: 01/07/17 04:14 Dose: 125 mls/hr Morphine Sulfate (Morphine) 4 mg IVP Q4 PRN PRN Reason: Pain, moderate (4-7) Ondansetron HCl (Zofran Inj) 4 mg IVP Q4 PRN PRN Reason: Nausea/Vomiting Pantoprazole Sodium (Protonix Ec Tab) 40 mg PO DAILY [facility] Last Admin: 01/06/17 08:29 Dose: 40 mg - Labs Labs: 01/06/17 06:00 01/07/17 05:30 PT 11.2 Seconds (9.8-13.1) 08/03/17 06:15 INR 1.1 (0.9-1.2) 01/04/17 06:15 APTT 28.8 Seconds (25.6-37.1) 01/04/17 06:15 - Constitutional Appears: No Acute Distress - Head Exam Head Exam: ATRAUMATIC, NORMAL INSPECTION, NORMOCEPHALIC - Respiratory Exam Respiratory Exam: NORMAL BREATHING PATTERN. absent: Respiratory Distress - Cardiovascular Exam Cardiovascular Exam: REGULAR RHYTHM - GI/Abdominal Exam GI & Abdominal Exam: Soft, Tenderness (mild ttp in RUQ). absent: Distended, Firm, Guarding, Rigid, Rebound - Neurological Exam Neurological Exam: Alert, Oriented x3 - Psychiatric Exam Psychiatric exam: Normal Affect, Normal Mood - Skin Skin Exam: Dry, Intact Assessment and Plan - Assessment and Plan (Free Text) Assessment: 41yo M with acute cholecystitis, transaminitis, thrombocytopenia - Platelets >100k, clear for OR from Heme/Onc standpoint - TBili trending down (2.9 today from 3.8 yest.) - If LFTs continue to trend down will plan for OR soon, poss. Sunday Will DW Dr. Brandyn Dubose PGy3
[2017-01-07] MEDS: Pantoprazole 40 mg EC Tab PO SCH (08:47)
--- NOTE | 2017-01-07 09:59 | CP.PCM.PN ---
Subjective - Date & Time of Evaluation Date of Evaluation: 01/07/17 Time of Evaluation: 09:00 - Subjective Subjective: No fever Denies abd pain no N/V tolerating PO diet LFT slowly trending down - awaiting Lap Angela no CP no SOB Objective - Vital Signs/Intake and Output Vital Signs (last 24 hours): Temp Pulse Resp BP Pulse Ox 98.2 F 68 20 103/61 95 01/07/17 08:24 01/07/17 09:00 01/07/17 08:24 01/07/17 08:24 01/07/17 08:24 - Medications Medications: Current Medications Metronidazole (Flagyl 500mg/100ml Ns) 100 mls @ 100 mls/hr IVPB Q8 [facility] Last Admin: 01/07/17 08:46 Dose: 100 mls/hr Piperacillin Sod/Tazobactam (Sod 3.375 gm/ Sodium Chloride) 100 mls @ 100 mls/ hr IVPB Q6 [facility] Last Admin: 01/07/17 09:41 Dose: 100 mls/hr Vancomycin HCl 1 gm/ Sodium (Chloride) 250 mls @ 166.667 mls/hr IVPB Q12 [facility] Last Admin: 01/07/17 09:41 Dose: 166.667 mls/hr Iron Sucrose 200 mg/ Sodium (Chloride) 110 mls @ 110 mls/hr IVPB DAILY@2000 [facility] Last Admin: 01/06/17 22:45 Dose: 110 mls/hr Potassium Chloride/Sodium Chloride (Potassium Chl 20 Meq In Ns) 1,000 mls @ 125 mls/hr IV .Q8H [facility] Last Admin: 01/07/17 04:14 Dose: 125 mls/hr Morphine Sulfate (Morphine) 4 mg IVP Q4 PRN PRN Reason: Pain, moderate (4-7) Ondansetron HCl (Zofran Inj) 4 mg IVP Q4 PRN PRN Reason: Nausea/Vomiting Pantoprazole Sodium (Protonix Ec Tab) 40 mg PO DAILY [facility] Last Admin: 01/07/17 08:47 Dose: 40 mg - Labs Labs: 01/07/17 05:30 01/07/17 05:30 PT 11.2 Seconds (9.8-13.1) 01/04/17 06:15 INR 1.1 (0.9-1.2) 01/04/17 06:15 APTT 28.8 Seconds (25.6-37.1) 01/04/17 06:15 - Constitutional Appears: No Acute Distress - Head Exam Head Exam: NORMAL INSPECTION, NORMOCEPHALIC - Eye Exam Eye Exam: EOMI, Normal appearance, PERRL Pupil Exam: NORMAL ACCOMMODATION - ENT Exam ENT Exam: Mucous Membranes Moist, Normal External Ear Exam - Neck Exam Neck Exam: Full ROM. absent: Meningismus - Respiratory Exam Respiratory Exam: NORMAL BREATHING PATTERN. absent: Rales, Wheezes, Respiratory Distress - Cardiovascular Exam Cardiovascular Exam: REGULAR RHYTHM, +S1, +S2 - GI/Abdominal Exam GI & Abdominal Exam: Soft, Tenderness (mild epigastric tenderness), Normal Bowel Sounds - Extremities Exam Extremities Exam: Full ROM, Normal Capillary Refill. absent: Calf Tenderness, Pedal Edema - Back Exam Back Exam: Full ROM. absent: CVA tenderness (L), CVA tenderness (R), vertebral tenderness - Neurological Exam Neurological Exam: Alert, Awake, CN II-XII Intact, Oriented x3 Neuro motor strength exam: Left Upper Extremity: 5, Right Upper Extremity: 5, Left Lower Extremity: 5, Right Lower Extremity: 5 - Psychiatric Exam Psychiatric exam: Normal Affect, Normal Mood - Skin Skin Exam: Dry, Normal Color, Warm Assessment and Plan (1) Sepsis Status: Acute (2) Acute cholecystitis Status: Acute (3) Thrombocytopenia Status: Acute (4) Abnormal LFTs (liver function tests) Status: Acute - Assessment and Plan (Free Text) Assessment: 41 yo male with no significant PMH came in because of epigastric and suprapubic pain accompanied by fever and chills. Abdominal sonogram showed cholelithiasis with acute cholecystitis. Patient was admitted with Sepsis secondary to Acute Cholecystitis. MRCP: Cholelithiasis. Thickened gallbladder wall. Pericholecystic fluid. Findings concerning for acute cholecystitis. No intra or extrahepatic biliary ductal dilatation. No dilatation of the common bile duct. There is no visualization of the most distal aspect of the common bile duct with no smooth tapering. This may be due to artifact or may reflect intrinsic or extrinsic mass effect such as distal common duct stone, ampullary neoplasm or pancreatic neoplasm. Trace ascites. (1) Sepsis sec Acute Cholecystitis w/ Strep pyogenes blood culture grew Strep pyogenes continue Zosyn and Flagyl plus Vanco as recommended by ID Pt is now afebrile, WBC trended down Fibrinogen normal (2) Acute Cholecystitis Surgery consulted- plan for Lap Angela once LFTs trend down, also rec ERCP GI consulted cont IV abx Pain mgt (3) Thrombocytopenia probably secondary to infection or sepsis hematology consult with Dr Guzman- [place] for surgery as long as Platelet is greater than 100 s/p Platelet transfusion x 1 unit Platelet normalized today 4. Abn LFTs sec to Cholecystitis Lap Angela once LFTs better Hepatitis screen negative TBili better today 2.9 from 5.4 5. Stool Guaiac + H/H stable will cont to monitor DVT proph -Platelet now normal however will hold off on anticoag until post op SCD for now
[2017-01-08] MEDS: metroNIDAZOLE 500mg/100ml NS 100 ML IVPB SCH ×3 (00:33→16:21)
[2017-01-08] MEDS: Potassium Chl 20 mEq in NS 1,000 ML IV SCH ×2 (04:33→12:00)
[2017-01-08] MEDS: Piperacillin/Tazobact 3.375 GM in Sodium Chloride 0.9% 100 ML IVPB SCH ×4 (04:34→22:30)
[2017-01-08 06:46] LABS: HEMOGLOBIN 10.9 g/dL (12.0-18.0); MEAN CELL VOLUME 90.7 fl (80.0-94.0); MEAN CORPUSCULAR HEMOGLOBIN 30.6 pg (27.0-31.0); MEAN CORPUSCULAR HGB CONC 33.7 g/dL (33.0-37.0); RBC 3.55 Mil/uL (4.40-5.90)
[2017-01-08 06:55] LABS: ALB/GLOB RATIO 0.9 (1.0-2.1); ALBUMIN 2.9 g/dL (3.5-5.0); ALT/SGPT 195 U/L (21-72); AST/SGOT 106 U/L (17-59); BLOOD UREA NITROGEN 8 mg/dl (9-20); GFR AFRICAN-AMERICAN > 60; GFR NON-AFRICAN AMERICAN > 60
[2017-01-08] MEDS ORDERED: HYDROmorphone 0.5 mg/0.5 ml ISec IVP PRN (08:00)
[2017-01-08] MEDS ORDERED: Oxycodone/Acetaminophen 5/325 mg Tab PO PRN (08:00)
--- NOTE | 2017-01-08 08:26 | CP.PCM.PN ---
<Candido Dixon - Last Filed: 01/08/17 15:38> Subjective - Date & Time of Evaluation Date of Evaluation: 01/08/17 Time of Evaluation: 08:24 - Subjective Subjective: Surgery: Dr. Byrnes Pt seen and examined. Resting comfortably in bed. No complaints of pain. No N/V. Objective - Vital Signs/Intake and Output Vital Signs (last 24 hours): Temp Pulse Resp BP Pulse Ox 98.1 F 76 20 111/66 97 01/08/17 08:00 01/08/17 08:00 01/08/17 08:00 01/08/17 08:00 01/08/17 08:00 - Medications Medications: Current Medications Hydromorphone HCl (Dilaudid) 0.5 mg IVP Q4 PRN PRN Reason: Pain, severe (8-10) Metronidazole (Flagyl 500mg/100ml Ns) 100 mls @ 100 mls/hr IVPB Q8 [facility] Last Admin: 01/08/17 00:33 Dose: 100 mls/hr Piperacillin Sod/Tazobactam (Sod 3.375 gm/ Sodium Chloride) 100 mls @ 100 mls/ hr IVPB Q6 [facility] Last Admin: 01/08/17 04:34 Dose: 100 mls/hr Vancomycin HCl 1 gm/ Sodium (Chloride) 250 mls @ 166.667 mls/hr IVPB Q12 [facility] Last Admin: 01/07/17 21:37 Dose: 166.667 mls/hr Iron Sucrose 200 mg/ Sodium (Chloride) 110 mls @ 110 mls/hr IVPB DAILY@2000 [facility] Last Admin: 01/07/17 21:33 Dose: 110 mls/hr Potassium Chloride/Sodium Chloride (Potassium Chl 20 Meq In Ns) 1,000 mls @ 125 mls/hr IV .Q8H [facility] Last Admin: 01/08/17 04:33 Dose: 125 mls/hr Morphine Sulfate (Morphine) 4 mg IVP Q4 PRN PRN Reason: Pain, moderate (4-7) Ondansetron HCl (Zofran Inj) 4 mg IVP Q4 PRN PRN Reason: Nausea/Vomiting Oxycodone/Acetaminophen (Percocet 5/325 Mg Tab) 2 tab PO Q4 PRN PRN Reason: Pain, moderate (4-7) Stop: 01/11/17 08:01 Pantoprazole Sodium (Protonix Ec Tab) 40 mg PO DAILY [facility] Last Admin: 01/07/17 08:47 Dose: 40 mg - Labs Labs: 01/08/17 06:40 01/08/17 06:40 PT 11.2 Seconds (9.8-13.1) 01/04/17 06:15 INR 1.1 (0.9-1.2) 01/04/17 06:15 APTT 28.8 Seconds (25.6-37.1) 01/04/17 06:15 - Constitutional Appears: Non-toxic, No Acute Distress - Head Exam Head Exam: ATRAUMATIC, NORMOCEPHALIC - Eye Exam Eye Exam: EOMI, Scleral icterus - ENT Exam ENT Exam: Mucous Membranes Moist, Normal External Ear Exam - Neck Exam Neck Exam: Full ROM - Respiratory Exam Respiratory Exam: NORMAL BREATHING PATTERN. absent: Accessory Muscle Use, Respiratory Distress - GI/Abdominal Exam GI & Abdominal Exam: Soft. absent: Distended, Firm, Guarding, Rigid, Tenderness , Rebound - Extremities Exam Extremities Exam: absent: Calf Tenderness, Pedal Edema - Neurological Exam Neurological Exam: Alert, Awake, Oriented x3 Assessment and Plan - Assessment and Plan (Free Text) Assessment: 41M w. cholecystitis and transaminitis -LFTs trending down -will plan for OR when Tbili < 2 -Possible OR tomorrow, NPO at midnight -c/w medical management -d/w attending Zemaitis PGY3 <Rupert Byrnes - Last Filed: 01/08/17 15:52> Subjective - Date & Time of Evaluation Time of Evaluation: 15:15 - Subjective Subjective: Patient was seen and examined at the bedside. Agree with resident's note above. Objective - Vital Signs/Intake and Output Vital Signs (last 24 hours): Temp Pulse Resp BP Pulse Ox 98.5 F 66 20 107/66 99 01/08/17 15:38 01/08/17 15:38 01/08/17 15:38 01/08/17 15:38 01/08/17 15:38 - Medications Medications: Current Medications Hydromorphone HCl (Dilaudid) 0.5 mg IVP Q4 PRN PRN Reason: Pain, severe (8-10) Metronidazole (Flagyl 500mg/100ml Ns) 100 mls @ 100 mls/hr IVPB Q8 [facility] Last Admin: 01/08/17 09:00 Dose: 100 mls/hr Piperacillin Sod/Tazobactam (Sod 3.375 gm/ Sodium Chloride) 100 mls @ 100 mls/ hr IVPB Q6 [facility] Last Admin: 01/08/17 11:00 Dose: 100 mls/hr Vancomycin HCl 1 gm/ Sodium (Chloride) 250 mls @ 166.667 mls/hr IVPB Q12 [facility] Last Admin: 01/08/17 09:00 Dose: 166.667 mls/hr Iron Sucrose 200 mg/ Sodium (Chloride) 110 mls @ 110 mls/hr IVPB DAILY@2000 [facility] Last Admin: 01/07/17 21:33 Dose: 110 mls/hr Potassium Chloride/Sodium Chloride (Potassium Chl 20 Meq In Ns) 1,000 mls @ 125 mls/hr IV .Q8H [facility] Last Admin: 01/08/17 12:00 Dose: 125 mls/hr Morphine Sulfate (Morphine) 4 mg IVP Q4 PRN PRN Reason: Pain, moderate (4-7) Ondansetron HCl (Zofran Inj) 4 mg IVP Q4 PRN PRN Reason: Nausea/Vomiting Oxycodone/Acetaminophen (Percocet 5/325 Mg Tab) 2 tab PO Q4 PRN PRN Reason: Pain, moderate (4-7) Stop: 01/11/17 08:01 Pantoprazole Sodium (Protonix Ec Tab) 40 mg PO DAILY [facility] Last Admin: 01/08/17 09:05 Dose: Not Given - Labs Labs: 01/08/17 06:40 01/08/17 06:40 PT 11.2 Seconds (9.8-13.1) 01/04/17 06:15 INR 1.1 (0.9-1.2) 01/04/17 06:15 APTT 28.8 Seconds (25.6-37.1) 01/04/17 06:15 Assessment and Plan - Assessment and Plan (Free Text) Plan: - Continue antibiotics - Will follow
[2017-01-08] MEDS: Pantoprazole 40 mg EC Tab PO SCH (09:05)
--- NOTE | 2017-01-08 15:09 | CP.PCM.PN ---
Subjective - Date & Time of Evaluation Date of Evaluation: 01/07/17 Time of Evaluation: 20:00 - Subjective Subjective: no pain Objective - Vital Signs/Intake and Output Vital Signs (last 24 hours): Temp Pulse Resp BP Pulse Ox 98.9 F 71 20 111/67 98 01/08/17 12:00 01/08/17 12:00 01/08/17 12:00 01/08/17 12:00 01/08/17 12:00 - Medications Medications: Current Medications Hydromorphone HCl (Dilaudid) 0.5 mg IVP Q4 PRN PRN Reason: Pain, severe (8-10) Metronidazole (Flagyl 500mg/100ml Ns) 100 mls @ 100 mls/hr IVPB Q8 [facility] Last Admin: 01/08/17 09:00 Dose: 100 mls/hr Piperacillin Sod/Tazobactam (Sod 3.375 gm/ Sodium Chloride) 100 mls @ 100 mls/ hr IVPB Q6 [facility] Last Admin: 01/08/17 11:00 Dose: 100 mls/hr Vancomycin HCl 1 gm/ Sodium (Chloride) 250 mls @ 166.667 mls/hr IVPB Q12 [facility] Last Admin: 01/08/17 09:00 Dose: 166.667 mls/hr Iron Sucrose 200 mg/ Sodium (Chloride) 110 mls @ 110 mls/hr IVPB DAILY@2000 [facility] Last Admin: 01/07/17 21:33 Dose: 110 mls/hr Potassium Chloride/Sodium Chloride (Potassium Chl 20 Meq In Ns) 1,000 mls @ 125 mls/hr IV .Q8H [facility] Last Admin: 01/08/17 12:00 Dose: 125 mls/hr Morphine Sulfate (Morphine) 4 mg IVP Q4 PRN PRN Reason: Pain, moderate (4-7) Ondansetron HCl (Zofran Inj) 4 mg IVP Q4 PRN PRN Reason: Nausea/Vomiting Oxycodone/Acetaminophen (Percocet 5/325 Mg Tab) 2 tab PO Q4 PRN PRN Reason: Pain, moderate (4-7) Stop: 01/11/17 08:01 Pantoprazole Sodium (Protonix Ec Tab) 40 mg PO DAILY [facility] Last Admin: 01/08/17 09:05 Dose: Not Given - Labs Labs: 01/08/17 06:40 08/07/17 06:40 PT 11.2 Seconds (9.8-13.1) 01/04/17 06:15 INR 1.1 (0.9-1.2) 01/04/17 06:15 APTT 28.8 Seconds (25.6-37.1) 01/04/17 06:15 - GI/Abdominal Exam GI & Abdominal Exam: Soft, Normal Bowel Sounds Assessment and Plan - Assessment and Plan (Free Text) Assessment: 41 yo male with cholecystitis lap saravanan when able lft trending down
--- NOTE | 2017-01-08 15:10 | CP.PCM.PN ---
Subjective - Date & Time of Evaluation Date of Evaluation: 01/08/17 Time of Evaluation: 15:00 - Subjective Subjective: doing well Objective - Vital Signs/Intake and Output Vital Signs (last 24 hours): Temp Pulse Resp BP Pulse Ox 98.9 F 71 20 111/67 98 01/08/17 12:00 01/08/17 12:00 01/08/17 12:00 01/08/17 12:00 01/08/17 12:00 - Medications Medications: Current Medications Hydromorphone HCl (Dilaudid) 0.5 mg IVP Q4 PRN PRN Reason: Pain, severe (8-10) Metronidazole (Flagyl 500mg/100ml Ns) 100 mls @ 100 mls/hr IVPB Q8 [facility] Last Admin: 01/08/17 09:00 Dose: 100 mls/hr Piperacillin Sod/Tazobactam (Sod 3.375 gm/ Sodium Chloride) 100 mls @ 100 mls/ hr IVPB Q6 [facility] Last Admin: 01/08/17 11:00 Dose: 100 mls/hr Vancomycin HCl 1 gm/ Sodium (Chloride) 250 mls @ 166.667 mls/hr IVPB Q12 [facility] Last Admin: 01/08/17 09:00 Dose: 166.667 mls/hr Iron Sucrose 200 mg/ Sodium (Chloride) 110 mls @ 110 mls/hr IVPB DAILY@2000 [facility] Last Admin: 01/07/17 21:33 Dose: 110 mls/hr Potassium Chloride/Sodium Chloride (Potassium Chl 20 Meq In Ns) 1,000 mls @ 125 mls/hr IV .Q8H [facility] Last Admin: 01/08/17 12:00 Dose: 125 mls/hr Morphine Sulfate (Morphine) 4 mg IVP Q4 PRN PRN Reason: Pain, moderate (4-7) Ondansetron HCl (Zofran Inj) 4 mg IVP Q4 PRN PRN Reason: Nausea/Vomiting Oxycodone/Acetaminophen (Percocet 5/325 Mg Tab) 2 tab PO Q4 PRN PRN Reason: Pain, moderate (4-7) Stop: 01/11/17 08:01 Pantoprazole Sodium (Protonix Ec Tab) 40 mg PO DAILY [facility] Last Admin: 01/08/17 09:05 Dose: Not Given - Labs Labs: 01/08/17 06:40 08/07/17 06:40 PT 11.2 Seconds (9.8-13.1) 01/04/17 06:15 INR 1.1 (0.9-1.2) 01/04/17 06:15 APTT 28.8 Seconds (25.6-37.1) 01/04/17 06:15 - GI/Abdominal Exam GI & Abdominal Exam: Soft, Normal Bowel Sounds Assessment and Plan - Assessment and Plan (Free Text) Assessment: 41 yo male with cholecystitis lap saravanan when able lft trending down
--- NOTE | 2017-01-08 18:31 | CP.PCM.PN ---
Subjective - Date & Time of Evaluation Date of Evaluation: 01/08/17 Time of Evaluation: 11:00 - Subjective Subjective: Pt seen and examined. Denied any complaint but appeared frustrated that he was not operated yet. Objective - Vital Signs/Intake and Output Vital Signs (last 24 hours): Temp Pulse Resp BP Pulse Ox 98.5 F 66 20 107/66 99 01/08/17 15:38 01/08/17 15:38 01/08/17 15:38 01/08/17 15:38 01/08/17 15:38 - Medications Medications: Current Medications Hydromorphone HCl (Dilaudid) 0.5 mg IVP Q4 PRN PRN Reason: Pain, severe (8-10) Metronidazole (Flagyl 500mg/100ml Ns) 100 mls @ 100 mls/hr IVPB Q8 [facility] Last Admin: 01/08/17 16:21 Dose: 100 mls/hr Piperacillin Sod/Tazobactam (Sod 3.375 gm/ Sodium Chloride) 100 mls @ 100 mls/ hr IVPB Q6 [facility] Last Admin: 01/08/17 16:22 Dose: 100 mls/hr Vancomycin HCl 1 gm/ Sodium (Chloride) 250 mls @ 166.667 mls/hr IVPB Q12 [facility] Last Admin: 01/08/17 09:00 Dose: 166.667 mls/hr Iron Sucrose 200 mg/ Sodium (Chloride) 110 mls @ 110 mls/hr IVPB DAILY@2000 [facility] Last Admin: 01/07/17 21:33 Dose: 110 mls/hr Potassium Chloride/Sodium Chloride (Potassium Chl 20 Meq In Ns) 1,000 mls @ 125 mls/hr IV .Q8H [facility] Last Admin: 01/08/17 12:00 Dose: 125 mls/hr Morphine Sulfate (Morphine) 4 mg IVP Q4 PRN PRN Reason: Pain, moderate (4-7) Ondansetron HCl (Zofran Inj) 4 mg IVP Q4 PRN PRN Reason: Nausea/Vomiting Oxycodone/Acetaminophen (Percocet 5/325 Mg Tab) 2 tab PO Q4 PRN PRN Reason: Pain, moderate (4-7) Stop: 01/11/17 08:01 Pantoprazole Sodium (Protonix Ec Tab) 40 mg PO DAILY [facility] Last Admin: 01/08/17 09:05 Dose: Not Given - Labs Labs: 01/08/17 06:40 01/08/17 06:40 PT 11.2 Seconds (9.8-13.1) 01/04/17 06:15 INR 1.1 (0.9-1.2) 01/04/17 06:15 APTT 28.8 Seconds (25.6-37.1) 01/04/17 06:15 - Constitutional Appears: No Acute Distress - Head Exam Head Exam: ATRAUMATIC - Eye Exam Eye Exam: absent: Scleral icterus - ENT Exam ENT Exam: Mucous Membranes Moist - Neck Exam Neck Exam: absent: Meningismus - Respiratory Exam Respiratory Exam: absent: Rhonchi, Wheezes, Respiratory Distress - Cardiovascular Exam Cardiovascular Exam: REGULAR RHYTHM, +S1, +S2 - GI/Abdominal Exam GI & Abdominal Exam: Soft. absent: Tenderness - Rectal Exam Rectal Exam: Deferred - Extremities Exam Extremities Exam: absent: Pedal Edema - Back Exam Back Exam: absent: tenderness - Neurological Exam Neurological Exam: Alert, Oriented x3 - Psychiatric Exam Psychiatric exam: Normal Affect - Skin Skin Exam: Dry, Intact Assessment and Plan (1) Sepsis Status: Acute (2) Cholecystitis Status: Acute - Assessment and Plan (Free Text) Assessment: 41 yo male with no significant PMH came in because of epigastric and suprapubic pain accompanied with fever and chills. Abdominal sonogram showed cholelithiasis with acute cholecystitis which was supported by MRCP. (1) Sepsis blood culture grew Streptococcus Pyogenes Grp A continue Zosyn and Vanco as recommended by Dr Catalino PHIPPS patient has been afebrile and has no lukocytosis WBC: down to 11 afebrile (2) Acute Cholecystitis cholecystectomy on hold because of elevated total bilirubin which was 2.5 mg/dl today patient medically cleared for surgery once total bilirubin gets under 2.0 (3) Thrombocytopenia resolved platelet ct now is 260
[2017-01-08] MEDS ORDERED: Sodium Chloride 0.9% 1,000 ML IV SCH (20:30)
[2017-01-09] MEDS: metroNIDAZOLE 500mg/100ml NS 100 ML IVPB SCH ×3 (01:00→16:04)
[2017-01-09] MEDS: Piperacillin/Tazobact 3.375 GM in Sodium Chloride 0.9% 100 ML IVPB SCH ×4 (03:14→21:21)
[2017-01-09 06:59] LABS: MEAN CELL VOLUME 91.4 fl (80.0-94.0); MEAN CORPUSCULAR HEMOGLOBIN 30.3 pg (27.0-31.0); MEAN CORPUSCULAR HGB CONC 33.2 g/dL (33.0-37.0); RBC 3.64 Mil/uL (4.40-5.90); RED CELL DISTRIBUTION WIDTH 14.6 % (11.5-14.5); WHITE BLOOD COUNT 9.9 K/uL (4.8-10.8)
[2017-01-09 07:11] LABS: ALT/SGPT 182 U/L (21-72); AST/SGOT 97 U/L (17-59); BLOOD UREA NITROGEN 8 mg/dl (9-20); CALCIUM 8.2 mg/dL (8.4-10.2); GFR AFRICAN-AMERICAN > 60; GFR NON-AFRICAN AMERICAN > 60
[2017-01-09] MEDS ORDERED: Propofol 10 mg/ml Inj (20 ML) ONE (07:24)
[2017-01-09] MEDS ORDERED: Rocuronium 10 mg/ml (5 ml) ONE ×2 (07:24→08:38)
[2017-01-09] MEDS ORDERED: Neostigmine Methylsulfate 3mg/3ml Syringe IV ONE (07:25)
[2017-01-09 07:26] LABS: ALB/GLOB RATIO 0.9 (1.0-2.1)
[2017-01-09] MEDS ORDERED: Succinylcholine 200 mg/10 ml Inj IV ONE (07:27)
[2017-01-09] MEDS ORDERED: Bupivacaine 0.5% Inj(30mL) ONE (07:46)
[2017-01-09] MEDS: Pantoprazole 40 mg EC Tab PO SCH (08:02)
[2017-01-09] MEDS ORDERED: metroNIDAZOLE 500mg/100ml NS IVPB ONE (08:05)
[2017-01-09] MEDS ORDERED: Vancomycin 500 mg Inj IVPB ONE (08:15)
[2017-01-09] MEDS: Piperacillin/Tazobact 3.375 gm Inj IVPB ONE ×2 (08:50→10:00)
[2017-01-09] MEDS ORDERED: Lactated Ringer's 1,000 ML IV ONE (08:51)
--- NOTE | 2017-01-09 09:49 | PCM.SURG1 ---
Surgeon's Initial Post Op Note - Surgeon's Notes Surgeon: Dr. Ahumada Nutrition Faculty Member: Bethany Sheffield PGY3, Maricel Mejia PGY2 Type of Anesthesia: General Endo Pre-Operative Diagnosis: Acute cholecystitis Operative Findings: extensive adhesions, distended GB, gallstones Post-Operative Diagnosis: Same Operation Performed: Laparoscopic converted to Open cholecystectomy Specimen/Specimens Removed: gallbladder Estimated Blood Loss: EBL {In ML}: 50 Blood Products Given: N/A Drains Used: No Drains Post-Op Condition: Good Date of Surgery/Procedure: 01/09/17 Time of Surgery/Procedure: 09:49
[2017-01-09] MEDS ORDERED: Lactated Ringer's 1,000 ML IV SCH (10:21)
[2017-01-09] MEDS ORDERED: HYDROmorphone 0.5 mg/0.5 ml ISec IVP PRN (10:22)
[2017-01-09] MEDS: Potassium Chl 20 mEq in NS 1,000 ML IV SCH ×2 (16:03→23:59)
[2017-01-09] MEDS: HYDROmorphone 0.5 mg/0.5 ml ISec IVP PRN ×2 (16:21→23:55)
--- NOTE | 2017-01-09 18:16 | CP.PCM.PN ---
Subjective - Date & Time of Evaluation Date of Evaluation: 01/09/17 Time of Evaluation: 15:00 - Subjective Subjective: Pt seen and examined. Aside from getting sore from the surgery, patient claimed he was alright. Objective - Vital Signs/Intake and Output Vital Signs (last 24 hours): Temp Pulse Resp BP Pulse Ox 98.5 F 65 14 114/68 97 01/09/17 16:18 01/09/17 16:18 01/09/17 16:18 01/09/17 16:18 01/09/17 16:18 Intake and Output: 01/09/17 01/09/17 06:59 18:59 Intake Total 1750 2550 Output Total 1200 Balance 550 2550 - Medications Medications: Current Medications Hydromorphone HCl (Dilaudid) 1 mg IVP Q3H PRN PRN Reason: Pain, moderate (4-7) Last Admin: 01/09/17 16:21 Dose: 1 mg Metronidazole (Flagyl 500mg/100ml Ns) 100 mls @ 100 mls/hr IVPB Q8 [facility] Last Admin: 01/09/17 16:04 Dose: 100 mls/hr Piperacillin Sod/Tazobactam (Sod 3.375 gm/ Sodium Chloride) 100 mls @ 100 mls/ hr IVPB Q6 [facility] Last Admin: 01/09/17 16:03 Dose: 100 mls/hr Vancomycin HCl 1 gm/ Sodium (Chloride) 250 mls @ 166.667 mls/hr IVPB Q12 [facility] Last Admin: 01/09/17 11:52 Dose: Not Given Iron Sucrose 200 mg/ Sodium (Chloride) 110 mls @ 110 mls/hr IVPB DAILY@2000 [facility] Last Admin: 01/08/17 20:00 Dose: 110 mls/hr Potassium Chloride/Sodium Chloride (Potassium Chl 20 Meq In Ns) 1,000 mls @ 100 mls/hr IV .Q10H [facility] Last Admin: 01/09/17 16:03 Dose: 100 mls/hr Ondansetron HCl (Zofran Inj) 4 mg IVP Q4 PRN PRN Reason: Nausea/Vomiting Pantoprazole Sodium (Protonix Ec Tab) 40 mg PO DAILY [facility] Last Admin: 01/09/17 08:02 Dose: Not Given - Labs Labs: 01/09/17 06:00 01/09/17 06:00 PT 11.2 Seconds (9.8-13.1) 01/04/17 06:15 INR 1.1 (0.9-1.2) 01/04/17 06:15 APTT 28.8 Seconds (25.6-37.1) 01/04/17 06:15 - Constitutional Appears: No Acute Distress - Head Exam Head Exam: ATRAUMATIC - Eye Exam Eye Exam: absent: Scleral icterus - ENT Exam ENT Exam: Mucous Membranes Moist - Neck Exam Neck Exam: absent: Meningismus - Respiratory Exam Respiratory Exam: absent: Rhonchi, Wheezes, Respiratory Distress - Cardiovascular Exam Cardiovascular Exam: REGULAR RHYTHM, +S1, +S2 - GI/Abdominal Exam GI & Abdominal Exam: Soft. absent: Tenderness - Rectal Exam Rectal Exam: Deferred - Extremities Exam Extremities Exam: absent: Pedal Edema - Neurological Exam Neurological Exam: Alert, Oriented x3 - Psychiatric Exam Psychiatric exam: Normal Affect - Skin Skin Exam: Dry, Intact Assessment and Plan (1) Sepsis Status: Acute (2) Cholecystitis Status: Acute - Assessment and Plan (Free Text) Assessment: 41 yo male with no significant PMH came in because of epigastric and suprapubic pain accompanied with fever and chills. Abdominal sonogram showed cholelithiasis with acute cholecystitis which was supported by MRCP. (1) Sepsis resolved (2) Acute Cholecystitis had cholecystectomy earlier today continue Zosyn and Vanco as recommended by Dr Catalino PHIPPS blood culture positive for Strep patient has been afebrile and has no leukocytosis WBC: 9.9 afebrile (3) Thrombocytopenia resolved
[2017-01-10] MEDS: Piperacillin/Tazobact 3.375 GM in Sodium Chloride 0.9% 100 ML IVPB SCH (04:30)
[2017-01-10 06:22] LABS: BASO # 0.1 K/uL (0.0-0.2); BASO % 0.4 % (0.0-2.0); EOS % 0.1 % (0.0-4.0); HEMOGLOBIN 9.6 g/dL (12.0-18.0); LYMPH # 1.1 K/uL (1.0-4.3); LYMPH % 8.6 % (20.0-40.0); MEAN CELL VOLUME 92.7 fl (80.0-94.0); MEAN CORPUSCULAR HEMOGLOBIN 30.5 pg (27.0-31.0); MEAN CORPUSCULAR HGB CONC 32.9 g/dL (33.0-37.0); MEAN PLATELET VOLUME 8.4 fl (7.2-11.7); MONO # 0.9 K/uL (0.0-0.8); MONO % 6.8 % (0.0-10.0); NEUT % 84.1 % (50.0-75.0); PLATELET COUNT 327 K/uL (130-400); RBC 3.15 Mil/uL (4.40-5.90); RED CELL DISTRIBUTION WIDTH 15.1 % (11.5-14.5); WHITE BLOOD COUNT 13.1 K/uL (4.8-10.8)
[2017-01-10 06:31] LABS: ALB/GLOB RATIO 0.9 (1.0-2.1); ALBUMIN 2.8 g/dL (3.5-5.0); CALCIUM 7.9 mg/dL (8.4-10.2)
[2017-01-10] MEDS ORDERED: Sodium Chloride 0.9% 1,000 ML IV SCH ×2 (07:00→10:00)
--- NOTE | 2017-01-10 07:16 | CP.PCM.PN ---
Subjective - Date & Time of Evaluation Date of Evaluation: 01/10/17 Time of Evaluation: 07:13 - Subjective Subjective: General Surgery - Dr. Ahumada Pt S&E> NAEO. Pt complains of mild pain to the RUQ at site of incision, worse with deep inspiration, otherwise he denies any complaints. He is thirsty, will start clear liquids today. No N/V, F/C, SOB/Cp. Objective - Vital Signs/Intake and Output Vital Signs (last 24 hours): Temp Pulse Resp BP Pulse Ox 98.3 F 75 20 98/63 L 95 01/10/17 04:59 01/10/17 04:59 01/10/17 04:59 01/10/17 04:59 01/10/17 04:59 Intake and Output: 01/10/17 01/10/17 06:59 18:59 Intake Total 1200 Output Total 700 Balance 500 - Medications Medications: Current Medications Hydromorphone HCl (Dilaudid) 1 mg IVP Q3H PRN PRN Reason: Pain, moderate (4-7) Last Admin: 01/09/17 23:55 Dose: 1 mg Metronidazole (Flagyl 500mg/100ml Ns) 100 mls @ 100 mls/hr IVPB Q8 [facility] Last Admin: 01/10/17 00:00 Dose: 100 mls/hr Piperacillin Sod/Tazobactam (Sod 3.375 gm/ Sodium Chloride) 100 mls @ 100 mls/ hr IVPB Q6 [facility] Last Admin: 01/10/17 04:30 Dose: 100 mls/hr Vancomycin HCl 1 gm/ Sodium (Chloride) 250 mls @ 166.667 mls/hr IVPB Q12 [facility] Last Admin: 01/09/17 21:20 Dose: 166.667 mls/hr Iron Sucrose 200 mg/ Sodium (Chloride) 110 mls @ 110 mls/hr IVPB DAILY@2000 [facility] Last Admin: 01/09/17 21:19 Dose: 110 mls/hr Sodium Chloride (Sodium Chloride 0.9%) 1,000 mls @ 125 mls/hr IV .Q8H [facility] Stop: 01/11/17 06:50 Last Admin: 01/10/17 07:06 Dose: 125 mls/hr Ondansetron HCl (Zofran Inj) 4 mg IVP Q4 PRN PRN Reason: Nausea/Vomiting Pantoprazole Sodium (Protonix Ec Tab) 40 mg PO DAILY [facility] Last Admin: 01/09/17 08:02 Dose: Not Given - Labs Labs: 01/10/17 05:00 01/10/17 05:00 PT 11.2 Seconds (9.8-13.1) 01/04/17 06:15 INR 1.1 (0.9-1.2) 01/04/17 06:15 APTT 28.8 Seconds (25.6-37.1) 01/04/17 06:15 - Constitutional Appears: No Acute Distress - Head Exam Head Exam: ATRAUMATIC, NORMAL INSPECTION, NORMOCEPHALIC - Eye Exam Eye Exam: Normal appearance - ENT Exam ENT Exam: Mucous Membranes Dry - Respiratory Exam Respiratory Exam: NORMAL BREATHING PATTERN. absent: Respiratory Distress - GI/Abdominal Exam GI & Abdominal Exam: Soft, Tenderness (appropriately). absent: Distended, Firm , Guarding, Rigid, Rebound Additional comments: dressings C/D/I - Neurological Exam Neurological Exam: Alert, Oriented x3 - Psychiatric Exam Psychiatric exam: Normal Affect, Normal Mood - Skin Skin Exam: Dry, Intact Assessment and Plan - Assessment and Plan (Free Text) Assessment: 41 yo M s/p Lap conv. to Open Cholecystectomy, POD #1 -Clear liquid diet -Continue IVF, increased to 125/hr NS -F/U AM Labs/LFTs -OOB to chair and ambulation with assistance as able -Encourage incentive spirometer Will DW Dr. Brandyn Dubose PGY3
[2017-01-10] MEDS: metroNIDAZOLE 500mg/100ml NS 100 ML IVPB SCH ×2 (08:11)
[2017-01-10] MEDS: Pantoprazole 40 mg EC Tab PO SCH (08:12)
[2017-01-10 08:17] LABS: BANDS 2 % (0-2); BASOPHIL 1 % (0-2); LYMPHOCYTE 6 % (20-50); MONOCYTE 4 % (0-10); NEUTROPHIL 87 % (42-75); TOTAL CELLS COUNTED 100
[2017-01-10 08:19] LABS: PLATELET ESTIMATE NORMAL (NORMAL)
--- NOTE | 2017-01-10 11:34 | CP.PCM.PN ---
Subjective - Date & Time of Evaluation Date of Evaluation: 01/10/17 Time of Evaluation: 11:00 - Subjective Subjective: Pt seen and examined. Able to eat cereal earlier today and tolerated. Mild pain on surgical area. Objective - Vital Signs/Intake and Output Vital Signs (last 24 hours): Temp Pulse Resp BP Pulse Ox 98.6 F 69 20 92/57 L 98 01/10/17 08:00 01/10/17 08:00 01/10/17 08:00 01/10/17 08:00 01/10/17 08:00 Intake and Output: 01/10/17 01/10/17 06:59 18:59 Intake Total 1200 Output Total 700 Balance 500 - Medications Medications: Current Medications Hydromorphone HCl (Dilaudid) 1 mg IVP Q3H PRN PRN Reason: Pain, moderate (4-7) Last Admin: 01/09/17 23:55 Dose: 1 mg Iron Sucrose 200 mg/ Sodium (Chloride) 110 mls @ 110 mls/hr IVPB DAILY@2000 [facility] Last Admin: 01/09/17 21:19 Dose: 110 mls/hr Vancomycin HCl 1 gm/ Sodium (Chloride) 250 mls @ 166.667 mls/hr IVPB DAILY [facility] Last Admin: 01/10/17 09:04 Dose: Not Given Piperacillin Sod/Tazobactam (Sod 2.25 gm/ Sodium Chloride) 100 mls @ 100 mls/ hr IVPB Q6 [facility] Sodium Chloride (Sodium Chloride 0.9%) 1,000 mls @ 200 mls/hr IV .Q5H [facility] Stop: 01/11/17 02:28 Ondansetron HCl (Zofran Inj) 4 mg IVP Q4 PRN PRN Reason: Nausea/Vomiting Pantoprazole Sodium (Protonix Ec Tab) 40 mg PO DAILY [facility] Last Admin: 01/10/17 08:12 Dose: 40 mg - Labs Labs: 01/10/17 05:00 01/10/17 05:00 PT 11.2 Seconds (9.8-13.1) 01/04/17 06:15 INR 1.1 (0.9-1.2) 01/04/17 06:15 APTT 28.8 Seconds (25.6-37.1) 01/04/17 06:15 - Constitutional Appears: No Acute Distress - Head Exam Head Exam: ATRAUMATIC - Eye Exam Eye Exam: absent: Scleral icterus - ENT Exam ENT Exam: Mucous Membranes Moist - Neck Exam Neck Exam: absent: Meningismus - Respiratory Exam Respiratory Exam: absent: Rhonchi, Wheezes, Respiratory Distress - Cardiovascular Exam Cardiovascular Exam: REGULAR RHYTHM, +S1, +S2 - GI/Abdominal Exam GI & Abdominal Exam: Soft. absent: Tenderness - Rectal Exam Rectal Exam: Deferred - Neurological Exam Neurological Exam: Alert, Oriented x3 - Psychiatric Exam Psychiatric exam: Normal Affect - Skin Skin Exam: Dry, Intact Assessment and Plan (1) Sepsis Status: Resolved (2) Cholecystitis Status: Acute - Assessment and Plan (Free Text) Assessment: 41 yo male with no significant PMH came in because of epigastric and suprapubic pain accompanied with fever and chills. Abdominal sonogram showed cholelithiasis with acute cholecystitis which was supported by MRCP. (1) Sepsis resolved (2) Acute Cholecystitis Cholecystectomy POD # 1 afebrile but WBC up to 13.1 continue Zosyn and Vanco blood culture positive for Strep leukocytosis maybe secondary to hemoconcentration due to dehydration since BUN/ creatinine were also elevated IV hydration with NSS 200cc/hr repeat CBC and BMP in am (3) Thrombocytopenia resolved
[2017-01-10] MEDS: Sodium Chloride 0.9% 1,000 ML IV SCH ×3 (12:53→22:00)
[2017-01-10] MEDS ORDERED: Simethicone 80 mg Chewtab PO STA (17:44)
[2017-01-10] MEDS: HYDROmorphone 0.5 mg/0.5 ml ISec IVP PRN (23:32)
[2017-01-11] MEDS: HYDROmorphone 0.5 mg/0.5 ml ISec IVP PRN (05:06)
[2017-01-11 05:16] LABS: BASO # 0.1 K/uL (0.0-0.2); BASO % 0.6 % (0.0-2.0); EOS # 0.1 K/uL (0.0-0.7); EOS % 0.5 % (0.0-4.0); HEMOGLOBIN 7.3 g/dL (12.0-18.0); LYMPH # 1.7 K/uL (1.0-4.3); LYMPH % 14.4 % (20.0-40.0); MEAN CELL VOLUME 93.8 fl (80.0-94.0); MEAN CORPUSCULAR HEMOGLOBIN 31.4 pg (27.0-31.0); MEAN CORPUSCULAR HGB CONC 33.5 g/dL (33.0-37.0); MEAN PLATELET VOLUME 8.2 fl (7.2-11.7); MONO # 1.1 K/uL (0.0-0.8); MONO % 9.1 % (0.0-10.0); NEUT % 75.4 % (50.0-75.0); RBC 2.32 Mil/uL (4.40-5.90); RED CELL DISTRIBUTION WIDTH 15.5 % (11.5-14.5)
[2017-01-11 05:27] LABS: CALCIUM 7.8 mg/dL (8.4-10.2)
[2017-01-11 08:33] LABS: HEMOGLOBIN 7.3 g/dL (12.0-18.0); MEAN CELL VOLUME 92.7 fl (80.0-94.0); MEAN CORPUSCULAR HEMOGLOBIN 30.4 pg (27.0-31.0); MEAN CORPUSCULAR HGB CONC 32.8 g/dL (33.0-37.0); RBC 2.4 Mil/uL (4.40-5.90); RED CELL DISTRIBUTION WIDTH 15.6 % (11.5-14.5); WHITE BLOOD COUNT 11.3 K/uL (4.8-10.8)
[2017-01-11] MEDS: Sodium Chloride 0.9% 1,000 ML IV SCH ×2 (09:26→16:42)
[2017-01-11] MEDS: Pantoprazole 40 mg EC Tab PO SCH (09:27)
--- NOTE | 2017-01-11 10:01 | CP.PCM.PN ---
Subjective - Date & Time of Evaluation Date of Evaluation: 01/11/17 Time of Evaluation: 10:00 - Subjective Subjective: feels better Objective - Vital Signs/Intake and Output Vital Signs (last 24 hours): Temp Pulse Resp BP Pulse Ox 98.4 F 85 20 92/55 L 96 01/11/17 08:00 01/11/17 08:00 01/11/17 08:00 01/11/17 08:00 01/11/17 08:00 Intake and Output: 01/11/17 01/11/17 06:59 18:59 Intake Total 1500 Output Total 380 Balance 1120 - Medications Medications: Current Medications Hydromorphone HCl (Dilaudid) 1 mg IVP Q3H PRN PRN Reason: Pain, moderate (4-7) Last Admin: 01/11/17 05:06 Dose: 1 mg Iron Sucrose 200 mg/ Sodium (Chloride) 110 mls @ 110 mls/hr IVPB DAILY@2000 [facility] Last Admin: 01/10/17 20:11 Dose: 110 mls/hr Vancomycin HCl 1 gm/ Sodium (Chloride) 250 mls @ 166.667 mls/hr IVPB DAILY [facility] Last Admin: 01/10/17 09:04 Dose: Not Given Piperacillin Sod/Tazobactam (Sod 2.25 gm/ Sodium Chloride) 100 mls @ 100 mls/ hr IVPB Q6 [facility] Last Admin: 01/11/17 09:36 Dose: 100 mls/hr Sodium Chloride (Sodium Chloride 0.9%) 1,000 mls @ 125 mls/hr IV .Q8H [facility] Stop: 01/12/17 07:19 Last Admin: 01/11/17 09:26 Dose: 125 mls/hr Ondansetron HCl (Zofran Inj) 4 mg IVP Q4 PRN PRN Reason: Nausea/Vomiting Pantoprazole Sodium (Protonix Ec Tab) 40 mg PO DAILY [facility] Last Admin: 01/11/17 09:27 Dose: 40 mg - Labs Labs: 01/11/17 08:00 01/11/17 04:45 PT 11.2 Seconds (9.8-13.1) 01/04/17 06:15 INR 1.1 (0.9-1.2) 01/04/17 06:15 APTT 28.8 Seconds (25.6-37.1) 01/04/17 06:15 - GI/Abdominal Exam GI & Abdominal Exam: Soft, Normal Bowel Sounds Assessment and Plan - Assessment and Plan (Free Text) Assessment: 41 yo male with cholecystitis doing well lft normalizing after cholecystectomy dc planning when able
--- NOTE | 2017-01-11 11:04 | CP.PCM.PN ---
Subjective - Date & Time of Evaluation Date of Evaluation: 01/11/17 Time of Evaluation: 10:45 - Subjective Subjective: No fever tolerated Liquid diet noted anemia 7.3 Hgb and increase in Crea to 3.3 denies CP no SOB abd pain minimal Objective - Vital Signs/Intake and Output Vital Signs (last 24 hours): Temp Pulse Resp BP Pulse Ox 98.4 F 85 20 92/55 L 96 01/11/17 08:00 01/11/17 08:00 01/11/17 08:00 01/11/17 08:00 01/11/17 08:00 Intake and Output: 01/11/17 01/11/17 06:59 18:59 Intake Total 1500 Output Total 380 Balance 1120 - Medications Medications: Current Medications Hydromorphone HCl (Dilaudid) 1 mg IVP Q3H PRN PRN Reason: Pain, moderate (4-7) Last Admin: 01/11/17 05:06 Dose: 1 mg Iron Sucrose 200 mg/ Sodium (Chloride) 110 mls @ 110 mls/hr IVPB DAILY@2000 [facility] Last Admin: 01/10/17 20:11 Dose: 110 mls/hr Vancomycin HCl 1 gm/ Sodium (Chloride) 250 mls @ 166.667 mls/hr IVPB DAILY [facility] Last Admin: 01/10/17 09:04 Dose: Not Given Piperacillin Sod/Tazobactam (Sod 2.25 gm/ Sodium Chloride) 100 mls @ 100 mls/ hr IVPB Q6 [facility] Last Admin: 01/11/17 09:36 Dose: 100 mls/hr Sodium Chloride (Sodium Chloride 0.9%) 1,000 mls @ 125 mls/hr IV .Q8H [facility] Stop: 01/12/17 07:19 Last Admin: 01/11/17 09:26 Dose: 125 mls/hr Ondansetron HCl (Zofran Inj) 4 mg IVP Q4 PRN PRN Reason: Nausea/Vomiting Pantoprazole Sodium (Protonix Ec Tab) 40 mg PO DAILY [facility] Last Admin: 01/11/17 09:27 Dose: 40 mg - Labs Labs: 01/11/17 08:00 01/11/17 04:45 PT 11.2 Seconds (9.8-13.1) 01/04/17 06:15 INR 1.1 (0.9-1.2) 01/04/17 06:15 APTT 28.8 Seconds (25.6-37.1) 01/04/17 06:15 - Constitutional Appears: No Acute Distress - Head Exam Head Exam: NORMAL INSPECTION, NORMOCEPHALIC - Eye Exam Eye Exam: EOMI, Normal appearance, PERRL Pupil Exam: NORMAL ACCOMMODATION - ENT Exam ENT Exam: Mucous Membranes Moist, Normal External Ear Exam - Neck Exam Neck Exam: Full ROM. absent: Meningismus - Respiratory Exam Respiratory Exam: NORMAL BREATHING PATTERN. absent: Rales, Wheezes, Respiratory Distress - Cardiovascular Exam Cardiovascular Exam: REGULAR RHYTHM, +S1, +S2 - GI/Abdominal Exam GI & Abdominal Exam: Soft, minimal Tenderness (mild epigastric tenderness), Normal Bowel Sounds surgical dressing intact - Extremities Exam Extremities Exam: Full ROM, Normal Capillary Refill. absent: Calf Tenderness, Pedal Edema - Back Exam Back Exam: Full ROM. absent: CVA tenderness (L), CVA tenderness (R), vertebral tenderness - Neurological Exam Neurological Exam: Alert, Awake, CN II-XII Intact, Oriented x3 Neuro motor strength exam: Left Upper Extremity: 5, Right Upper Extremity: 5, Left Lower Extremity: 5, Right Lower Extremity: 5 - Psychiatric Exam Psychiatric exam: Normal Affect, Normal Mood - Skin Skin Exam: Dry, Normal Color, Warm Assessment and Plan (1) Sepsis Status: Resolved (2) Acute cholecystitis Status: Acute (3) Thrombocytopenia Status: Acute (4) Abnormal LFTs (liver function tests) Status: Acute (5) ANALY (acute kidney injury) Status: Acute - Assessment and Plan (Free Text) Assessment: 41 yo male with no significant PMH came in because of epigastric and suprapubic pain accompanied by fever and chills. Abdominal sonogram showed cholelithiasis with acute cholecystitis. Patient was admitted with Sepsis secondary to Acute Cholecystitis. MRCP: Cholelithiasis. Thickened gallbladder wall. Pericholecystic fluid. Findings concerning for acute cholecystitis. No intra or extrahepatic biliary ductal dilatation. No dilatation of the common bile duct. There is no visualization of the most distal aspect of the common bile duct with no smooth tapering. This may be due to artifact or may reflect intrinsic or extrinsic mass effect such as distal common duct stone, ampullary neoplasm or pancreatic neoplasm. Trace ascites. Pt underwent cholecystectomy on 01/09. (1) Sepsis sec Acute Cholecystitis w/ Strep pyogenes bacteremia blood culture grew Strep pyogenes continue Zosyn adjust to renal dose Hold Vanco IV for now ( due to ANALY and elevated trough) Pt is afebrile, WBC trending down Fibrinogen normal (2) Acute Cholecystitis s/p Cholecystectomy Surgery consulted GI consulted cont IV abx Pain mgt started on Clear liquid diet (3) Thrombocytopenia resolved probably secondary to infection or sepsis hematology consult with Dr Guzman s/p Platelet transfusion x 1 unit Platelet normalized 4. Acute kidney Injury likely ATN - IVF hydration transfuse 2 units PRBC - Nephrology consult- discussed case - rec CT of abd/pelvis 5. Abn LFTs sec to Cholecystitis Hepatitis screen negative TBili better today 6. Postoperative Anemia Hgb 7.3 transfuse 2 units PRBC -Pt had + FOBT on admission however H/H had been stable until post o GI consulted DVT proph early ambulation SCD for now Lovenox- renal dose
--- NOTE | 2017-01-11 13:06 | CP.PCM.PN ---
Subjective - Date & Time of Evaluation Date of Evaluation: 01/11/17 Time of Evaluation: 13:03 - Subjective Subjective: General Surgery - Dr. Byrnes Pt S&E. Overnight pt had low BP (systolic in 90s), this morning Hgb low (7.3). Orders for transfusion. Pt currently has mild incisional pain, otherwise he denies any complaints. He is tolerating liquid diet, ambulating. No N/V, F/C, SOB/Cp. Objective - Vital Signs/Intake and Output Vital Signs (last 24 hours): Temp Pulse Resp BP Pulse Ox 98.1 F 80 18 104/65 100 01/11/17 12:00 01/11/17 12:00 01/11/17 12:00 01/11/17 12:00 01/11/17 12:00 Intake and Output: 01/11/17 01/11/17 06:59 18:59 Intake Total 1500 Output Total 380 Balance 1120 - Medications Medications: Current Medications Hydromorphone HCl (Dilaudid) 1 mg IVP Q3H PRN PRN Reason: Pain, moderate (4-7) Last Admin: 01/11/17 05:06 Dose: 1 mg Iron Sucrose 200 mg/ Sodium (Chloride) 110 mls @ 110 mls/hr IVPB DAILY@2000 [facility] Last Admin: 01/10/17 20:11 Dose: 110 mls/hr Vancomycin HCl 1 gm/ Sodium (Chloride) 250 mls @ 166.667 mls/hr IVPB DAILY [facility] Last Admin: 01/10/17 09:04 Dose: Not Given Piperacillin Sod/Tazobactam (Sod 2.25 gm/ Sodium Chloride) 100 mls @ 100 mls/ hr IVPB Q6 [facility] Last Admin: 01/11/17 09:36 Dose: 100 mls/hr Sodium Chloride (Sodium Chloride 0.9%) 1,000 mls @ 125 mls/hr IV .Q8H [facility] Stop: 01/12/17 07:19 Last Admin: 01/11/17 09:26 Dose: 125 mls/hr Ondansetron HCl (Zofran Inj) 4 mg IVP Q4 PRN PRN Reason: Nausea/Vomiting Pantoprazole Sodium (Protonix Ec Tab) 40 mg PO DAILY [facility] Last Admin: 01/11/17 09:27 Dose: 40 mg - Labs Labs: 01/11/17 08:00 01/11/17 04:45 PT 11.2 Seconds (9.8-13.1) 01/04/17 06:15 INR 1.1 (0.9-1.2) 01/04/17 06:15 APTT 28.8 Seconds (25.6-37.1) 01/04/17 06:15 - Constitutional Appears: No Acute Distress - Head Exam Head Exam: ATRAUMATIC, NORMAL INSPECTION, NORMOCEPHALIC - Eye Exam Eye Exam: Normal appearance - Respiratory Exam Respiratory Exam: Clear to Ausculation Bilateral, NORMAL BREATHING PATTERN - Cardiovascular Exam Cardiovascular Exam: REGULAR RHYTHM - GI/Abdominal Exam GI & Abdominal Exam: Soft, Tenderness (mild TTP around incision). absent: Distended, Firm, Guarding, Rigid, Rebound - Neurological Exam Neurological Exam: Alert, Oriented x3 - Psychiatric Exam Psychiatric exam: Normal Affect, Normal Mood - Skin Skin Exam: Dry, Intact Assessment and Plan - Assessment and Plan (Free Text) Assessment: 41 yo M s/p Lap conv. to Open Cholecystectomy, POD #2 -Regular Diet -Continue IVF -Transfuse 2U PRBC -Monitor urine output -F/U H/H and BUN/Cr -Continue to encourage OOB and ambulation, Incentive spirometer Patient seen and discussed with Dr. Fitz Dubose PGY3
--- NOTE | 2017-01-11 13:36 | CP.PCM.CON ---
History of Present Illness - History of Present Illness History of Present Illness: 41 yo M w/ no pmh presented to ED with epigastric pain with associated fevers and chills; was admitted with sepsis and acute cholecystitis; patient is now POD #2 s/p open cholecystectomy; nephrology service being consulted for acute renal failure; Patient's cholecystectomy was initially put on hold due to thrombocytopenia which resolved subsequently; patient was put on zosyn and vanco for Strep progenes in blood; Per Op record, patient's BP was as low as high 80's/mid-40's during the procedure; patient also received a dose of ketorolac 30 mg intra-op; Today, patient reports feeling well; started on liquid diet and tolerating well without nausea/vomiting; reports leg swelling that started during early part of this admission; otherwise denies any shortness of breath; denies any difficulty urinating but does report urinating less since yesterday; Review of Systems - Constitutional Additional comments: fevers/chills resolved; - EENT Nose/Mouth/Throat: absent: Nasal Discharge, Sore Throat - Cardiovascular Cardiovascular: Leg Edema. absent: Chest Pain, Palpitations - Respiratory Respiratory: absent: Cough, Dyspnea - Gastrointestinal Gastrointestinal: absent: Nausea, Vomiting - Genitourinary Genitourinary: As Per HPI - Musculoskeletal Musculoskeletal: absent: Arthralgias, Back Pain - Integumentary Integumentary: absent: Pruritus, Rash - Neurological Neurological: absent: Dizziness - Psychiatric Psychiatric: absent: Anxiety, Depression - Hematologic/Lymphatic Hematologic: absent: Easy Bruising Past Patient History - Tetanus Immunizations Tetanus Immunization: Unknown - Past Medical History & Family History Past Medical History?: No Pertinent Family History: Patient denies any - Past Social History Smoking Status: Former Smoker - CARDIAC Hx Cardiac Disorders: No - PULMONARY Hx Respiratory Disorders: No - NEUROLOGICAL Hx Neurological Disorder: No - HEENT Hx HEENT Problems: No - RENAL Hx Chronic Kidney Disease: No - ENDOCRINE/METABOLIC Hx Endocrine Disorders: No - HEMATOLOGICAL/ONCOLOGICAL Hx Blood Disorders: No - INTEGUMENTARY Hx Dermatological Problems: No - MUSCULOSKELETAL/RHEUMATOLOGICAL Hx Musculoskeletal Disorders: No Hx Falls: No - GASTROINTESTINAL Hx Gastrointestinal Disorders: No - GENITOURINARY/GYNECOLOGICAL Hx Genitourinary Disorders: No - PSYCHIATRIC Hx Psychophysiologic Disorder: No Hx Substance Use: No - SURGICAL HISTORY Hx Surgeries: Yes Other/Comment: abdominal surgery - ANESTHESIA Hx Anesthesia: Yes Hx Anesthesia Reactions: No Hx Malignant Hyperthermia: No Has any member of the family had a problem w/ anesthesia?: No Meds Allergies/Adverse Reactions: Allergies Allergy/AdvReac Type Severity Reaction Status Date / Time No Known Allergies Allergy Verified 01/01/17 11:42 - Medications Medications: Current Medications Hydromorphone HCl (Dilaudid) 1 mg IVP Q3H PRN PRN Reason: Pain, moderate (4-7) Last Admin: 01/11/17 05:06 Dose: 1 mg Iron Sucrose 200 mg/ Sodium (Chloride) 110 mls @ 110 mls/hr IVPB DAILY@2000 [facility] Last Admin: 01/10/17 20:11 Dose: 110 mls/hr Vancomycin HCl 1 gm/ Sodium (Chloride) 250 mls @ 166.667 mls/hr IVPB DAILY [facility] Last Admin: 01/10/17 09:04 Dose: Not Given Piperacillin Sod/Tazobactam (Sod 2.25 gm/ Sodium Chloride) 100 mls @ 100 mls/ hr IVPB Q6 [facility] Last Admin: 01/11/17 09:36 Dose: 100 mls/hr Sodium Chloride (Sodium Chloride 0.9%) 1,000 mls @ 125 mls/hr IV .Q8H [facility] Stop: 01/12/17 07:19 Last Admin: 01/11/17 09:26 Dose: 125 mls/hr Ondansetron HCl (Zofran Inj) 4 mg IVP Q4 PRN PRN Reason: Nausea/Vomiting Pantoprazole Sodium (Protonix Ec Tab) 40 mg PO DAILY [facility] Last Admin: 01/11/17 09:27 Dose: 40 mg Physical Exam - Constitutional Appears: Non-toxic, No Acute Distress - Head Exam Head Exam: NORMAL INSPECTION - Eye Exam Eye Exam: Normal appearance, Scleral icterus - ENT Exam ENT Exam: Mucous Membranes Moist - Neck Exam Neck exam: Negative for: Lymphadenopathy - Respiratory Exam Respiratory Exam: Clear to Auscultation Bilateral, NORMAL BREATHING PATTERN. absent: Rales, Rhonchi, Wheezes, Respiratory Distress - Cardiovascular Exam Cardiovascular Exam: REGULAR RHYTHM, +S1, +S2 Additional comments: Bilateral femoral bruits present; no abd bruit heard; - GI/Abdominal Exam GI & Abdominal Exam: Soft, Tenderness. absent: Distended - Exam Exam: absent: Bladder Distension - Extremities Exam Extremities exam: Positive for: pedal pulses present - Back Exam Back exam: absent: CVA tenderness (L), CVA tenderness (R), paraspinal tenderness - Neurological Exam Neurological exam: Alert - Skin Skin Exam: Normal Color, Warm Results - Vital Signs Recent Vital Signs: Last Vital Signs Temp 98.1 F 01/11/17 12:00 Pulse 80 01/11/17 12:00 Resp 18 01/11/17 12:00 BP 104/65 01/11/17 12:00 Pulse Ox 100 01/11/17 12:00 - Labs Result Diagrams: 01/11/17 08:00 01/11/17 04:45 Labs: Laboratory Results - last 24 hr 01/11/17 01/11/17 01/11/17 04:45 04:45 08:00 WBC 12.0 H 11.3 H RBC 2.32 L 2.40 L Hgb 7.3 L D 7.3 L Hct 21.7 L 22.2 L MCV 93.8 92.7 MCH 31.4 H 30.4 MCHC 33.5 32.8 L RDW 15.5 H 15.6 H Plt Count 311 337 MPV 8.2 Neut % (Auto) 75.4 H Lymph % (Auto) 14.4 L [place] % (Auto) 9.1 Eos % (Auto) 0.5 Baso % (Auto) 0.6 Neut # 9.0 H Lymph # 1.7 [place] # 1.1 H Eos # 0.1 Baso # 0.1 Sodium 139 Potassium 4.4 Chloride 108 H Carbon Dioxide 22 Anion Gap 13 BUN 29 H Creatinine 3.3 H Est GFR ( Amer) 25 Est GFR (Non-Af Amer) 21 Random Glucose 132 H Calcium 7.8 L Total Bilirubin 1.7 H AST 54 ALT 135 H Alkaline Phosphatase 180 H Total Protein 6.1 L Albumin 3.0 L Globulin 3.1 Albumin/Globulin Ratio 1.0 Vancomycin Trough Blood Type Antibody Screen Crossmatch BBK History Checked 01/11/17 01/11/17 08:00 08:00 WBC RBC Hgb Hct MCV MCH MCHC RDW Plt Count MPV Neut % (Auto) Lymph % (Auto) [place] % (Auto) Eos % (Auto) Baso % (Auto) Neut # Lymph # [place] # Eos # Baso # Sodium Potassium Chloride Carbon Dioxide Anion Gap BUN Creatinine Est GFR ( Amer) Est GFR (Non-Af Amer) Random Glucose Calcium Total Bilirubin AST ALT Alkaline Phosphatase Total Protein Albumin Globulin Albumin/Globulin Ratio Vancomycin Trough 23.6 H Blood Type O POSITIVE Antibody Screen Negative Crossmatch See Detail BBK History Checked Patient has bt Assessment & Plan (1) Acute renal failure Assessment and Plan: Etiology most likely ATN in the setting of intra-op hypotension and precipitated by NSAID administration; cannot quantify urine output at this time ; still with borderline hypotension in the setting of acute blood loss; stable lytes currently; -agree with holding vanco for now -need to look for source of blood loss -recommend abd/pelvis CT -avoid NSAIDS for pain control Status: Acute (2) Anemia Assessment and Plan: Acute blood loss not explained simply by hemodilution or intra-op losses; agree with prbc transfusion; -abd/pelvis CT as mentioned above Status: Acute (3) Sepsis Assessment and Plan: Resolving; vanco random level slightly high today (last dose given yesterday); on zosyn 2.25 g q6h, consider decreasing further to q8h for CrCl < 10 ml/min; Status: Resolved
--- NOTE | 2017-01-11 16:08 | CP.PCM.PN ---
Subjective - Date & Time of Evaluation Date of Evaluation: 01/11/17 Time of Evaluation: 16:04 - Subjective Subjective: I D NOTE AFEBRILE, RENAL NOTE APPRECIATED HAVE ADJUSTED ZOSYN DOSE PER RENAL AND WILL CONTINUE VANCOMYCIN D/DEO FOR PRESENT BLOOD CULTURES ORDERED FOR TOMORROW Objective - Vital Signs/Intake and Output Vital Signs (last 24 hours): Temp Pulse Resp BP Pulse Ox 98.1 F 80 18 104/65 100 01/11/17 12:00 01/11/17 12:00 01/11/17 12:00 01/11/17 12:00 01/11/17 12:00 Intake and Output: 01/11/17 01/11/17 06:59 18:59 Intake Total 1500 Output Total 380 Balance 1120 - Medications Medications: Current Medications Hydromorphone HCl (Dilaudid) 1 mg IVP Q3H PRN PRN Reason: Pain, moderate (4-7) Last Admin: 01/11/17 05:06 Dose: 1 mg Iron Sucrose 200 mg/ Sodium (Chloride) 110 mls @ 110 mls/hr IVPB DAILY@2000 [facility] Last Admin: 01/10/17 20:11 Dose: 110 mls/hr Sodium Chloride (Sodium Chloride 0.9%) 1,000 mls @ 125 mls/hr IV .Q8H [facility] Stop: 01/12/17 07:19 Last Admin: 01/11/17 09:26 Dose: 125 mls/hr Piperacillin Sod/Tazobactam (Sod 2.25 gm/ Sodium Chloride) 100 mls @ 100 mls/ hr IVPB Q8H [facility] Ondansetron HCl (Zofran Inj) 4 mg IVP Q4 PRN PRN Reason: Nausea/Vomiting Pantoprazole Sodium (Protonix Ec Tab) 40 mg PO DAILY [facility] Last Admin: 01/11/17 09:27 Dose: 40 mg - Labs Labs: 01/11/17 08:00 01/11/17 04:45 PT 11.2 Seconds (9.8-13.1) 01/04/17 06:15 INR 1.1 (0.9-1.2) 01/04/17 06:15 APTT 28.8 Seconds (25.6-37.1) 01/04/17 06:15
[2017-01-11 17:08] LABS: CREATININE, RANDOM URINE 95.1 mg/dL
--- NOTE | 2017-01-11 18:05 | CT ---
PROCEDURE: CT Abdomen and Pelvis without intravenous contrast HISTORY: POD #2 s/p cholecystectomy; acute drop in HGB COMPARISON: None. TECHNIQUE: Technique. Contrast Dose: Radiation dose: Total exam DLP = mGy-cm. This CT exam was performed using one or more of the following dose reduction techniques: Automated exposure control, adjustment of the mA and/or kV according to patient size, and/or use of iterative reconstruction technique. FINDINGS: LOWER THORAX: Dependent, basilar atelectasis incompletely visualize lower lobe distribution right greater than left. Associated trace pleural effusions. Trace free air under the right hemidiaphragm consistent with recent cholecystectomy. LIVER: Unremarkable. No gross lesion or ductal dilatation. GALLBLADDER AND BILE DUCTS: Unremarkable. PANCREAS: Unremarkable. No gross lesion or ductal dilatation. SPLEEN: Unremarkable. ADRENALS: Unremarkable. No mass. KIDNEYS AND URETERS: Impression upon the right kidney by a the largest component of the hematoma. VASCULATURE: Unremarkable. No aortic aneurysm. BOWEL: Unremarkable. No obstruction. No gross mural thickening. APPENDIX: Unremarkable. Normal appendix. PERITONEUM: Unremarkable. No free fluid. No free air. LYMPH NODES: Unremarkable. No enlarged lymph nodes. BLADDER: Unremarkable. REPRODUCTIVE: Unremarkable. BONES: No acute fracture. OTHER FINDINGS: Subcutaneous edema and anasarca. IMPRESSION: 1. Large fluid collection with Hounsfield unit values consistent with acute hemorrhage/ hematoma in the right upper quadrant the largest component measures 9 x 9.7 cm. Additional smaller loculated hematoma is 3.7 x 4.9 cm. 2. Thickening of the wall of the rectum and sigmoid consistent with acute proctitis. Critical results protocol: 3. Study completed at 17:02. 4. Initial verbal notification to the nurse involved in the care and management this individual. This occurred at 17:53. Based on findings I requested direct contact/communication with medical staff involved in the care and management of this patient 5. I discussed the findings including the large hematoma, proctitis and impression upon the right kidney with Dr. Pedraza at 17:59. 6. Results available electronic medical record at 18:02
[2017-01-11 18:27] LABS: URINE BACTERIA RARE (<OCC); URINE BILIRUBIN NEGATIVE (NEGATIVE); URINE BLOOD LARGE (NEGATIVE); URINE CLARITY CLOUDY (Clear); URINE COLOR YELLOW (YELLOW); URINE GLUCOSE (UA) NEG (Normal); URINE LEUKOCYTE ESTERASE NEG Leu/uL (Negative); URINE NITRATE NEGATIVE (NEGATIVE); URINE PROTEIN 30 mg/dL (NEGATIVE); URINE UROBILINOGEN 0.2-1.0 mg/dL (0.2-1.0)
[2017-01-11 18:28] LABS: SQUAMOUS EPITHIAL 2 /hpf (0-5)
[2017-01-11 18:29] LABS: URINE AMORPHOUS SEDIMENT FEW /ul (<OCC)
[2017-01-11] MEDS ORDERED: Simethicone 40 mg/0.6 ml Liquid (30 ml) PO STA (19:36)
[2017-01-11] MEDS ORDERED: Lactulose 10 gm/15 ml Syrup PO ONE (19:38)
[2017-01-12 07:24] LABS: BASO # 0.1 K/uL (0.0-0.2); BASO % 0.8 % (0.0-2.0); EOS # 0.1 K/uL (0.0-0.7); EOS % 0.8 % (0.0-4.0); HEMOGLOBIN 7.6 g/dL (12.0-18.0); LYMPH # 1.5 K/uL (1.0-4.3); LYMPH % 17.2 % (20.0-40.0); MEAN CORPUSCULAR HEMOGLOBIN 31.4 pg (27.0-31.0); MEAN CORPUSCULAR HGB CONC 34.8 g/dL (33.0-37.0); MEAN PLATELET VOLUME 8.3 fl (7.2-11.7); MONO # 0.8 K/uL (0.0-0.8); MONO % 9.5 % (0.0-10.0); NEUT # 6.3 K/uL (1.8-7.0); NEUT % 71.7 % (50.0-75.0); RBC 2.43 Mil/uL (4.40-5.90); RED CELL DISTRIBUTION WIDTH 15.1 % (11.5-14.5); WHITE BLOOD COUNT 8.8 K/uL (4.8-10.8)
[2017-01-12 07:31] LABS: ALB/GLOB RATIO 0.9 (1.0-2.1); CALCIUM 8.2 mg/dL (8.4-10.2)
--- NOTE | 2017-01-12 07:44 | CP.PCM.PN ---
<Katelynn Dubose - Last Filed: 01/12/17 07:42> Subjective - Date & Time of Evaluation Date of Evaluation: 01/12/17 Time of Evaluation: 07:42 - Subjective Subjective: General Surgery - DR. Byrnes Pt S&E. Last night Pt went for CT abd/pelvis, results show hematoma in the gallbladder fossa. He has been Afebrile, HR and BP stable and WNL. He states his pain is improving and denies any complaints. He is tolerating regular diet , ambulating. No F/C, N/V, SOB/Cp. Objective - Vital Signs/Intake and Output Vital Signs (last 24 hours): Temp Pulse Resp BP Pulse Ox 98.4 F 88 20 110/70 97 01/12/17 07:37 01/12/17 07:37 01/12/17 07:37 01/12/17 07:37 01/12/17 07:37 Intake and Output: 01/12/17 01/12/17 06:59 18:59 Intake Total 1565 Output Total 1335 200 Balance 230 -200 - Medications Medications: Current Medications Docusate Sodium (Colace) 100 mg PO BID [facility] Hydromorphone HCl (Dilaudid) 1 mg IVP Q3H PRN PRN Reason: Pain, moderate (4-7) Last Admin: 01/11/17 05:06 Dose: 1 mg Iron Sucrose 200 mg/ Sodium (Chloride) 110 mls @ 110 mls/hr IVPB DAILY@2000 [facility] Last Admin: 01/11/17 23:37 Dose: 110 mls/hr Piperacillin Sod/Tazobactam (Sod 2.25 gm/ Sodium Chloride) 100 mls @ 100 mls/ hr IVPB Q8H [facility] Last Admin: 01/12/17 00:50 Dose: 100 mls/hr Doxycycline Hyclate 100 mg/ (Sodium Chloride) 100 mls @ 100 mls/hr IVPB Q12@ 0900,2100 [facility] Last Admin: 01/11/17 21:14 Dose: 100 mls/hr Sodium Chloride (Sodium Chloride 0.9%) 1,000 mls @ 150 mls/hr IV .Q6H40M [facility] Stop: 01/13/17 07:30 Ondansetron HCl (Zofran Inj) 4 mg IVP Q4 PRN PRN Reason: Nausea/Vomiting Pantoprazole Sodium (Protonix Ec Tab) 40 mg PO DAILY [facility] Last Admin: 01/11/17 09:27 Dose: 40 mg - Labs Labs: 01/11/17 08:00 01/12/17 06:25 PT 11.2 Seconds (9.8-13.1) 01/04/17 06:15 INR 1.1 (0.9-1.2) 01/04/17 06:15 APTT 28.8 Seconds (25.6-37.1) 01/04/17 06:15 - Constitutional Appears: No Acute Distress - Head Exam Head Exam: ATRAUMATIC, NORMAL INSPECTION, NORMOCEPHALIC - Eye Exam Eye Exam: Normal appearance - Respiratory Exam Respiratory Exam: NORMAL BREATHING PATTERN. absent: Respiratory Distress - Cardiovascular Exam Cardiovascular Exam: REGULAR RHYTHM - GI/Abdominal Exam GI & Abdominal Exam: Soft. absent: Distended, Guarding, Tenderness, Rebound Additional comments: incision c/D/I with paco - Neurological Exam Neurological Exam: Alert, Oriented x3 - Psychiatric Exam Psychiatric exam: Normal Affect, Normal Mood - Skin Skin Exam: Dry, Intact Assessment and Plan - Assessment and Plan (Free Text) Assessment: 41 yo M s/p Lap conv. to Open Cholecystectomy, POD #3 -Continue Regular Diet -Continue IVF and Strict I/O d/t ANALY -Vanc held and Zosyn renal dosed -Cr still trending up (3.6 today) -F/U H/H -Continue to encourage OOB and ambulation, Incentive spirometer Will DW Dr. Fitz Dubose PGY3 <Rupert Byrnes - Last Filed: 01/12/17 10:54> Subjective - Date & Time of Evaluation Time of Evaluation: 10:20 - Subjective Subjective: Patient was seen and examined at the bedside. Agree with resident's note above Objective - Vital Signs/Intake and Output Vital Signs (last 24 hours): Temp Pulse Resp BP Pulse Ox 98.4 F 88 20 110/70 97 01/12/17 07:37 01/12/17 07:37 01/12/17 07:37 01/12/17 07:37 01/12/17 07:37 Intake and Output: 01/12/17 01/12/17 06:59 18:59 Intake Total 1565 Output Total 1335 200 Balance 230 -200 - Medications Medications: Current Medications Docusate Sodium (Colace) 100 mg PO BID [facility] Last Admin: 01/12/17 08:26 Dose: Not Given Hydromorphone HCl (Dilaudid) 1 mg IVP Q3H PRN PRN Reason: Pain, moderate (4-7) Last Admin: 01/11/17 05:06 Dose: 1 mg Iron Sucrose 200 mg/ Sodium (Chloride) 110 mls @ 110 mls/hr IVPB DAILY@2000 [facility] Last Admin: 01/11/17 23:37 Dose: 110 mls/hr Piperacillin Sod/Tazobactam (Sod 2.25 gm/ Sodium Chloride) 100 mls @ 100 mls/ hr IVPB Q8H [facility] Last Admin: 01/12/17 08:33 Dose: 100 mls/hr Doxycycline Hyclate 100 mg/ (Sodium Chloride) 100 mls @ 100 mls/hr IVPB Q12@ 0900,2100 [facility] Last Admin: 01/12/17 08:33 Dose: 100 mls/hr Sodium Chloride (Sodium Chloride 0.9%) 1,000 mls @ 150 mls/hr IV .Q6H40M [facility] Stop: 01/13/17 07:30 Last Admin: 01/12/17 08:32 Dose: 150 mls/hr Ondansetron HCl (Zofran Inj) 4 mg IVP Q4 PRN PRN Reason: Nausea/Vomiting Pantoprazole Sodium (Protonix Ec Tab) 40 mg PO DAILY [facility] Last Admin: 01/12/17 08:26 Dose: Not Given - Labs Labs: 01/12/17 06:25 01/12/17 06:25 PT 11.2 Seconds (9.8-13.1) 01/04/17 06:15 INR 1.1 (0.9-1.2) 01/04/17 06:15 APTT 28.8 Seconds (25.6-37.1) 01/04/17 06:15 Assessment and Plan - Assessment and Plan (Free Text) Plan: - Transfuse 2 units of PRBCs - Pain control - Insentive spirometry - Continue diet - Monitor Hb/Hct - Will follow
[2017-01-12 07:51] LABS: MEAN CELL VOLUME 90.1 fl (80.0-94.0)
[2017-01-12] MEDS: Pantoprazole 40 mg EC Tab PO SCH (08:26)
[2017-01-12] MEDS: Sodium Chloride 0.9% 1,000 ML IV SCH ×3 (08:32→21:37)
[2017-01-12] MEDS ORDERED: Enoxaparin 30 mg Syringe SC SCH (09:00)
--- NOTE | 2017-01-12 11:32 | CP.PCM.PN ---
Subjective - Date & Time of Evaluation Date of Evaluation: 01/12/17 Time of Evaluation: 11:15 - Subjective Subjective: No fever + BM and flatus tolerated PO diet noted drop in Hgb to 7.6 and increase in Crea to 3.6 no CP no SOB no cough sl pedal edema Objective - Vital Signs/Intake and Output Vital Signs (last 24 hours): Temp Pulse Resp BP Pulse Ox 98.4 F 76 17 112/70 98 01/12/17 11:25 01/12/17 11:25 01/12/17 11:25 01/12/17 11:25 01/12/17 11:25 Intake and Output: 01/12/17 01/12/17 06:59 18:59 Intake Total 1565 Output Total 1335 200 Balance 230 -200 - Medications Medications: Current Medications Docusate Sodium (Colace) 100 mg PO BID [facility] Last Admin: 01/12/17 08:26 Dose: Not Given Hydromorphone HCl (Dilaudid) 1 mg IVP Q3H PRN PRN Reason: Pain, moderate (4-7) Last Admin: 01/11/17 05:06 Dose: 1 mg Iron Sucrose 200 mg/ Sodium (Chloride) 110 mls @ 110 mls/hr IVPB DAILY@2000 [facility] Last Admin: 01/11/17 23:37 Dose: 110 mls/hr Piperacillin Sod/Tazobactam (Sod 2.25 gm/ Sodium Chloride) 100 mls @ 100 mls/ hr IVPB Q8H [facility] Last Admin: 01/12/17 08:33 Dose: 100 mls/hr Doxycycline Hyclate 100 mg/ (Sodium Chloride) 100 mls @ 100 mls/hr IVPB Q12@ 0900,2100 [facility] Last Admin: 01/12/17 08:33 Dose: 100 mls/hr Sodium Chloride (Sodium Chloride 0.9%) 1,000 mls @ 150 mls/hr IV .Q6H40M [facility] Stop: 01/13/17 07:30 Last Admin: 01/12/17 08:32 Dose: 150 mls/hr Ondansetron HCl (Zofran Inj) 4 mg IVP Q4 PRN PRN Reason: Nausea/Vomiting Pantoprazole Sodium (Protonix Ec Tab) 40 mg PO DAILY [facility] Last Admin: 01/12/17 08:26 Dose: Not Given - Labs Labs: 01/12/17 06:25 01/12/17 06:25 PT 11.2 Seconds (9.8-13.1) 01/04/17 06:15 INR 1.1 (0.9-1.2) 01/04/17 06:15 APTT 28.8 Seconds (25.6-37.1) 01/04/17 06:15 - Constitutional Appears: No Acute Distress - Head Exam Head Exam: NORMAL INSPECTION, NORMOCEPHALIC - Eye Exam Eye Exam: EOMI, Normal appearance, PERRL Pupil Exam: NORMAL ACCOMMODATION - ENT Exam ENT Exam: Mucous Membranes Moist, Normal External Ear Exam - Neck Exam Neck Exam: Full ROM. absent: Meningismus - Respiratory Exam Respiratory Exam: NORMAL BREATHING PATTERN. absent: Rales, Wheezes, Respiratory Distress - Cardiovascular Exam Cardiovascular Exam: REGULAR RHYTHM, +S1, +S2 - GI/Abdominal Exam GI & Abdominal Exam: Soft, minimal Tenderness (mild epigastric tenderness), Normal Bowel Sounds surgical dressing intact - Extremities Exam Extremities Exam: Full ROM, Normal Capillary Refill. absent: Calf Tenderness + Pedal Edema - Back Exam Back Exam: Full ROM. absent: CVA tenderness (L), CVA tenderness (R), vertebral tenderness - Neurological Exam Neurological Exam: Alert, Awake, CN II-XII Intact, Oriented x3 Neuro motor strength exam: Left Upper Extremity: 5, Right Upper Extremity: 5, Left Lower Extremity: 5, Right Lower Extremity: 5 - Psychiatric Exam Psychiatric exam: Normal Affect, Normal Mood - Skin Skin Exam: Dry, Normal Color, Warm Assessment and Plan (1) Sepsis Status: Resolved (2) Acute cholecystitis Status: Acute (3) Thrombocytopenia Status: Acute (4) Abnormal LFTs (liver function tests) Status: Acute (5) ANALY (acute kidney injury) Status: Acute - Assessment and Plan (Free Text) Assessment: 41 yo male with no significant PMH came in because of epigastric and suprapubic pain accompanied by fever and chills. Abdominal sonogram showed cholelithiasis with acute cholecystitis. Patient was admitted with Sepsis secondary to Acute Cholecystitis. MRCP: Cholelithiasis. Thickened gallbladder wall. Pericholecystic fluid. Findings concerning for acute cholecystitis. No intra or extrahepatic biliary ductal dilatation. No dilatation of the common bile duct. There is no visualization of the most distal aspect of the common bile duct with no smooth tapering. This may be due to artifact or may reflect intrinsic or extrinsic mass effect such as distal common duct stone, ampullary neoplasm or pancreatic neoplasm. Trace ascites. Pt underwent cholecystectomy on 01/09. CT of abd 01/11 1. Large fluid collection with Hounsfield unit values consistent with acute hemorrhage/ hematoma in the right upper quadrant the largest component measures 9 x 9.7 cm. Additional smaller loculated hematoma is 3.7 x 4.9 cm. 2. Thickening of the wall of the rectum and sigmoid consistent with acute proctitis. (1) Sepsis sec Acute Cholecystitis w/ Strep pyogenes bacteremia blood culture grew Strep pyogenes continue Zosyn adjust to renal dose Hold Vanco IV for now ( due to ANALY and elevated trough) Pt is afebrile, WBC trending down Fibrinogen normal (2) Acute Cholecystitis s/p Cholecystectomy Surgery consulted GI consulted cont IV abx Pain mgt Surgery placed pt on NPO (3) Thrombocytopenia resolved probably secondary to infection or sepsis hematology consult with Dr Guzman s/p Platelet transfusion x 1 unit Platelet normalized 4. Acute kidney Injury likely ATN - IVF hydration -transfuse PRN - Nephrology consulted - worsening Crea 3.6 5. Abn LFTs sec to Cholecystitis Hepatitis screen negative TBili better today 6. Postoperative Anemia Hgb 7.6 transfused 2 units PRBC, will transfuse [address] of abd : shows hematoma RUQ 7. Proctitis seen on CT - add Doxycycline -check GC/Chlam - HIV negative - may need Sigmoidoscopy as outpt DVT proph early ambulation SCD for now Hold Lovenox due to hematoma and anemia
--- NOTE | 2017-01-12 14:13 | OP ---
PROCEDURE DATE: 01/09/2017 PREOPERATIVE DIAGNOSIS: Acute cholecystitis. POSTOPERATIVE DIAGNOSIS: Chronic cholecystitis and possible choledocholithiasis. OPERATION PERFORMED: Attempted laparoscopic cholecystectomy and open cholecystectomy. SURGEON: Adán Ahumada MD ASSISTANTS: 1. Rupert Byrnes MD 2. Sola Dubose. TYPE OF ANESTHESIA: General. OPERATIVE FINDINGS: Cystic duct and cystic artery identified, massive adhesions to the abdomen. ESTIMATED BLOOD LOSS DURING THE CASE: 50 mL. SPECIMEN: Gallbladder. DESCRIPTION OF PROCEDURE: The patient was taken to the operating room and placed supine on the operating room table. After induction of general anesthesia, the abdomen was prepped and draped in a standard surgical fashion. A Veress needle was inserted into the periumbilical region and the abdomen was insufflated without difficulty. A 5-mm trocar was placed in the right lateral aspect under direct vision using the Visi-Port and the diagnostic laparoscopy was performed. The patient had a massive amount of adhesions in the in the upper abdomen, where the transverse colon was stuck obscuring any access to the gallbladder fossa and the liver. The mid abdomen, where the Veress needle was placed was relatively clear. A 5-mm trocar was placed in the umbilicus and a diagnostic laparoscopy was performed to see what was around those adhesions and those adhesions could not be taken down laparoscopically. At that point, it was decided to do an open cholecystectomy. The patient at that point had right-sided Miriam incision made using #10-blade. The subcutaneous tissues were divided using the electrocautery. The electrocautery was then used to divide the fascia and the muscle. The peritoneum was then grasped between clamps and lift upwards and divided. There was colon, which was stuck to the right upper quadrant. This was taken down using combination of sharp and blunt dissection. A self-retaining retractor was then placed into the abdomen. The patient then had a great number of adhesions to the liver and the gallbladder fossa. These were taken down sharply. The colon and the omentum were then packed out of the way using lap pads. The gallbladder was then identified and grasped and pulled upwards. The neck of the gallbladder was pulled outwards. A right-angled clamp was used to dissect the peritoneum off of the triangle of Calot. The cystic duct and cystic artery were identified and clips were placed on the cystic duct. This was then divided. Clips were placed on the cystic artery. This was then divided. Traction was placed on the gallbladder and the gallbladder was then removed using dome-down technique with the electrocautery. Care was taken to achieve hemostasis. Once the gallbladder was completely off, it was passed off the field as a specimen. The area was inspected for hemostasis. There was no evidence of bleeding. At that point, the patient had the lap pads removed. The peritoneum was grasped using Elvira clamps and was reapproximated using 2-0 Vicryl sutures, and then the posterior fascia and muscles were reapproximated using 2-0 Vicryl suture and then the anterior muscles and fascia were reapproximated using 2-0 Vicryl suture. The skin was then closed with paco. The patient was then awakened from anesthesia and transported to recovery room in satisfactory condition. The sponge, instrument, and needle counts were correct at the end of the case. Adán Ahumada MD
[2017-01-12 14:56] LABS: SQUAMOUS EPITHIAL < 1 /hpf (0-5); URINE BILIRUBIN NEGATIVE (NEGATIVE); URINE BLOOD MODERATE (NEGATIVE); URINE CLARITY CLEAR (Clear); URINE COLOR YELLOW (YELLOW); URINE GLUCOSE (UA) NEG (Normal); URINE LEUKOCYTE ESTERASE NEG Leu/uL (Negative); URINE NITRATE NEGATIVE (NEGATIVE); URINE PROTEIN NEGATIVE (NEGATIVE); URINE UROBILINOGEN 0.2-1.0 mg/dL (0.2-1.0)
[2017-01-12 17:27] LABS: BASO # 0.1 K/uL (0.0-0.2); BASO % 1.2 % (0.0-2.0); EOS # 0.1 K/uL (0.0-0.7); EOS % 0.6 % (0.0-4.0); LYMPH # 1.5 K/uL (1.0-4.3); LYMPH % 14.1 % (20.0-40.0); MEAN CELL VOLUME 90.7 fl (80.0-94.0); MEAN CORPUSCULAR HEMOGLOBIN 30.8 pg (27.0-31.0); MEAN CORPUSCULAR HGB CONC 33.9 g/dL (33.0-37.0); MEAN PLATELET VOLUME 7.9 fl (7.2-11.7); MONO % 9.4 % (0.0-10.0); NEUT # 7.7 K/uL (1.8-7.0); NEUT % 74.7 % (50.0-75.0); RBC 3.25 Mil/uL (4.40-5.90); RED CELL DISTRIBUTION WIDTH 15.7 % (11.5-14.5); WHITE BLOOD COUNT 10.3 K/uL (4.8-10.8)
--- NOTE | 2017-01-12 18:15 | CP.PCM.PN ---
Subjective - Date & Time of Evaluation Date of Evaluation: 01/12/17 Time of Evaluation: 17:00 - Subjective Subjective: Patient reports feeling well; hungry; denies any shortness of breath; urinated about 400 cc during the day; Objective - Vital Signs/Intake and Output Vital Signs (last 24 hours): Temp Pulse Resp BP Pulse Ox 99.2 F 67 18 116/74 98 01/12/17 16:15 01/12/17 16:15 01/12/17 16:15 01/12/17 16:15 01/12/17 16:15 Intake and Output: 01/12/17 01/12/17 06:59 18:59 Intake Total 1565 Output Total 1335 200 Balance 230 -200 - Medications Medications: Current Medications Docusate Sodium (Colace) 100 mg PO BID [facility] Last Admin: 01/12/17 16:07 Dose: Not Given Hydromorphone HCl (Dilaudid) 1 mg IVP Q3H PRN PRN Reason: Pain, moderate (4-7) Last Admin: 01/11/17 05:06 Dose: 1 mg Iron Sucrose 200 mg/ Sodium (Chloride) 110 mls @ 110 mls/hr IVPB DAILY@2000 [facility] Last Admin: 01/11/17 23:37 Dose: 110 mls/hr Piperacillin Sod/Tazobactam (Sod 2.25 gm/ Sodium Chloride) 100 mls @ 100 mls/ hr IVPB Q8H [facility] Last Admin: 01/12/17 16:16 Dose: 100 mls/hr Doxycycline Hyclate 100 mg/ (Sodium Chloride) 100 mls @ 100 mls/hr IVPB Q12@ 0900,2100 [facility] Last Admin: 01/12/17 08:33 Dose: 100 mls/hr Sodium Chloride (Sodium Chloride 0.9%) 1,000 mls @ 150 mls/hr IV .Q6H40M [facility] Stop: 01/13/17 07:30 Last Admin: 01/12/17 14:20 Dose: Not Given Ondansetron HCl (Zofran Inj) 4 mg IVP Q4 PRN PRN Reason: Nausea/Vomiting Pantoprazole Sodium (Protonix Ec Tab) 40 mg PO DAILY [facility] Last Admin: 01/12/17 08:26 Dose: Not Given - Labs Labs: 01/12/17 17:01/12/17 06:25 PT 11.2 Seconds (9.8-13.1) 01/04/17 06:15 INR 1.1 (0.9-1.2) 01/04/17 06:15 APTT 28.8 Seconds (25.6-37.1) 01/04/17 06:15 - Constitutional Appears: Non-toxic, No Acute Distress - Head Exam Head Exam: NORMAL INSPECTION - ENT Exam ENT Exam: Mucous Membranes Moist - Respiratory Exam Respiratory Exam: NORMAL BREATHING PATTERN. absent: Rales, Rhonchi, Wheezes, Respiratory Distress Additional comments: Somewhat decreased basal breath sounds; - Cardiovascular Exam Cardiovascular Exam: RRR, +S1, +S2. absent: JVD - GI/Abdominal Exam GI & Abdominal Exam: Soft. absent: Distended - Exam Exam: absent: Bladder Distension - Extremities Exam Extremities Exam: Normal Capillary Refill Additional comments: Moderate b/l lower leg edema; - Neurological Exam Neurological Exam: Alert, Awake - Psychiatric Exam Psychiatric exam: Normal Affect, Normal Mood - Skin Skin Exam: Normal Color, Warm. absent: Cyanosis Assessment and Plan (1) Acute renal failure Assessment & Plan: Urine sediment directly visualized today not indicative of significant tubular damage (only occasional granular casts and no overt renal tubular cells seen); also, abrupt slowing in rate of rise of serum creatinine with BP stabilized also points more toward pre-renal etiology rather than having progressed to predominantly ATN; relatively stable volume and electrolyte status; -Agree with intravascular volume repletion with IVF (NS at 150 cc/hr) and prbc transfusion -Avoid any nephrotoxic meds (NSAIDS like toradol) -Monitor I/O Status: Acute (2) Anemia Assessment & Plan: Large RUQ hematoma seen on CT; inadequate response to 2 u prbc transfusion yesterday, received another 2 u today; -continue to monitor cbc q12h and f/u with surgery Status: Acute (3) Sepsis Assessment & Plan: On zosyn 2.25g q8h, correctly dosed for CrCl < 20; no dose adjustment for doxy; Status: Resolved
[2017-01-12 19:45] LABS: CREATININE, RANDOM URINE 35.3 mg/dL
[2017-01-13] MEDS: Sodium Chloride 0.9% 1,000 ML IV SCH ×2 (04:00→09:07)
[2017-01-13 08:40] LABS: MEAN CELL VOLUME 91.6 fl (80.0-94.0); MEAN CORPUSCULAR HEMOGLOBIN 31.1 pg (27.0-31.0); RBC 3.21 Mil/uL (4.40-5.90); RED CELL DISTRIBUTION WIDTH 15.8 % (11.5-14.5); WHITE BLOOD COUNT 8.9 K/uL (4.8-10.8)
[2017-01-13 08:49] LABS: ALBUMIN 3.1 g/dL (3.5-5.0); CALCIUM 8.4 mg/dL (8.4-10.2)
[2017-01-13] MEDS: Pantoprazole 40 mg EC Tab PO SCH (09:12)
--- NOTE | 2017-01-13 09:47 | CP.PCM.PN ---
Subjective - Date & Time of Evaluation Date of Evaluation: 01/13/17 Time of Evaluation: 09:45 - Subjective Subjective: No fever feels better No abd pain states he is hungry and i asking to be restarted on feeding no CP no SOB pedal edema Objective - Vital Signs/Intake and Output Vital Signs (last 24 hours): Temp Pulse Resp BP Pulse Ox 98.7 F 67 20 117/71 97 01/13/17 08:24 01/13/17 08:24 01/13/17 08:24 01/13/17 08:24 01/13/17 08:24 - Medications Medications: Current Medications Docusate Sodium (Colace) 100 mg PO BID [facility] Last Admin: 01/13/17 09:12 Dose: 100 mg Hydromorphone HCl (Dilaudid) 1 mg IVP Q3H PRN PRN Reason: Pain, moderate (4-7) Last Admin: 01/11/17 05:06 Dose: 1 mg Iron Sucrose 200 mg/ Sodium (Chloride) 110 mls @ 110 mls/hr IVPB DAILY@2000 [facility] Last Admin: 01/12/17 20:34 Dose: 110 mls/hr Piperacillin Sod/Tazobactam (Sod 2.25 gm/ Sodium Chloride) 100 mls @ 100 mls/ hr IVPB Q8H [facility] Last Admin: 01/13/17 09:08 Dose: 100 mls/hr Doxycycline Hyclate 100 mg/ (Sodium Chloride) 100 mls @ 100 mls/hr IVPB Q12@ 0900,2100 [facility] Last Admin: 01/13/17 09:10 Dose: 100 mls/hr Ondansetron HCl (Zofran Inj) 4 mg IVP Q4 PRN PRN Reason: Nausea/Vomiting Pantoprazole Sodium (Protonix Ec Tab) 40 mg PO DAILY [facility] Last Admin: 01/13/17 09:12 Dose: 40 mg - Labs Labs: 01/13/17 06:00 01/13/17 06:00 PT 11.2 Seconds (9.8-13.1) 01/04/17 06:15 INR 1.1 (0.9-1.2) 01/04/17 06:15 APTT 28.8 Seconds (25.6-37.1) 01/04/17 06:15 - Constitutional Appears: No Acute Distress - Head Exam Head Exam: NORMAL INSPECTION, NORMOCEPHALIC - Eye Exam Eye Exam: EOMI, Normal appearance, PERRL Pupil Exam: NORMAL ACCOMMODATION - ENT Exam ENT Exam: Mucous Membranes Moist, Normal External Ear Exam - Neck Exam Neck Exam: Full ROM. absent: Meningismus - Respiratory Exam Respiratory Exam: NORMAL BREATHING PATTERN. absent: Rales, Wheezes, Respiratory Distress - Cardiovascular Exam Cardiovascular Exam: REGULAR RHYTHM, +S1, +S2 - GI/Abdominal Exam GI & Abdominal Exam: Soft, minimal Tenderness (mild epigastric tenderness), Normal Bowel Sounds surgical dressing intact - Extremities Exam Extremities Exam: Full ROM, Normal Capillary Refill. absent: Calf Tenderness + Pedal Edema - Back Exam Back Exam: Full ROM. absent: CVA tenderness (L), CVA tenderness (R), vertebral tenderness - Neurological Exam Neurological Exam: Alert, Awake, CN II-XII Intact, Oriented x3 Neuro motor strength exam: Left Upper Extremity: 5, Right Upper Extremity: 5, Left Lower Extremity: 5, Right Lower Extremity: 5 - Psychiatric Exam Psychiatric exam: Normal Affect, Normal Mood - Skin Skin Exam: Dry, Normal Color, Warm Assessment and Plan (1) Sepsis Status: Resolved (2) Acute cholecystitis Status: Acute (3) Thrombocytopenia Status: Acute (4) Abnormal LFTs (liver function tests) Status: Acute (5) ANALY (acute kidney injury) Status: Acute (6) Intra-abdominal hematoma Status: Acute - Assessment and Plan (Free Text) Assessment: 41 yo male with no significant PMH came in because of epigastric and suprapubic pain accompanied by fever and chills. Abdominal sonogram showed cholelithiasis with acute cholecystitis. Patient was admitted with Sepsis secondary to Acute Cholecystitis. MRCP: Cholelithiasis. Thickened gallbladder wall. Pericholecystic fluid. Findings concerning for acute cholecystitis. No intra or extrahepatic biliary ductal dilatation. No dilatation of the common bile duct. There is no visualization of the most distal aspect of the common bile duct with no smooth tapering. This may be due to artifact or may reflect intrinsic or extrinsic mass effect such as distal common duct stone, ampullary neoplasm or pancreatic neoplasm. Trace ascites. Pt underwent cholecystectomy on 01/09. CT of abd 01/11 1. Large fluid collection with Hounsfield unit values consistent with acute hemorrhage/ hematoma in the right upper quadrant the largest component measures 9 x 9.7 cm. Additional smaller loculated hematoma is 3.7 x 4.9 cm. 2. Thickening of the wall of the rectum and sigmoid consistent with acute proctitis. (1) Sepsis sec Acute Cholecystitis w/ Strep pyogenes bacteremia blood culture grew Strep pyogenes continue Zosyn adjust to renal dose Hold Vanco IV ( due to ANALY and elevated trough) ID: Dr Bae Pt is afebrile, WBC trending down Fibrinogen normal Rpt Blood c/s : neg so far (2) Acute Cholecystitis s/p Cholecystectomy Surgery consulted GI consulted cont IV abx Pain mgt restart on Regular diet today - asrec by Surgery (3) Thrombocytopenia resolved probably secondary to infection or sepsis hematology consult with Dr Guzman s/p Platelet transfusion x 1 unit Platelet normalized 4. Acute kidney Injury likely ATN - IVF hydration -transfuse PRN - Nephrology consulted - Crea 3.5 today 5. Abn LFTs sec to Cholecystitis Hepatitis screen negative 6. Postoperative Anemia Hgb 7.6 transfused total of [address] of abd : shows hematoma RUQ 7. Proctitis seen on CT - add Doxycycline -check GC/Chlam - HIV negative - may need Sigmoidoscopy as outpt 8. Hematoma RUQ discussed with Surgery - will closely monitor pt CBC monitoring Pt reports less fullness on the RUQ today DVT proph encourage ambulation SCD for now Hold Lovenox due to hematoma and anemia
--- NOTE | 2017-01-13 10:58 | CP.PCM.PN ---
<Maricel Mejia - Last Filed: 01/13/17 10:54> Subjective - Date & Time of Evaluation Date of Evaluation: 01/13/17 Time of Evaluation: 10:54 - Subjective Subjective: Surgery Pt s&e. NAEON. Got 2 PRBC yesterday. Hgb improved. Voiding clear urine. No complaints. Tolerating diet. + amb. Pt is hungry Objective - Vital Signs/Intake and Output Vital Signs (last 24 hours): Temp Pulse Resp BP Pulse Ox 98.7 F 67 20 117/71 97 01/13/17 08:24 01/13/17 08:24 01/13/17 08:24 01/13/17 08:24 01/13/17 08:24 - Medications Medications: Current Medications Docusate Sodium (Colace) 100 mg PO BID [facility] Last Admin: 01/13/17 09:12 Dose: 100 mg Hydromorphone HCl (Dilaudid) 1 mg IVP Q3H PRN PRN Reason: Pain, moderate (4-7) Last Admin: 01/11/17 05:06 Dose: 1 mg Iron Sucrose 200 mg/ Sodium (Chloride) 110 mls @ 110 mls/hr IVPB DAILY@2000 [facility] Last Admin: 01/12/17 20:34 Dose: 110 mls/hr Piperacillin Sod/Tazobactam (Sod 2.25 gm/ Sodium Chloride) 100 mls @ 100 mls/ hr IVPB Q8H [facility] Last Admin: 01/13/17 09:08 Dose: 100 mls/hr Doxycycline Hyclate 100 mg/ (Sodium Chloride) 100 mls @ 100 mls/hr IVPB Q12@ 0900,2100 [facility] Last Admin: 01/13/17 09:10 Dose: 100 mls/hr Ondansetron HCl (Zofran Inj) 4 mg IVP Q4 PRN PRN Reason: Nausea/Vomiting Pantoprazole Sodium (Protonix Ec Tab) 40 mg PO DAILY [facility] Last Admin: 01/13/17 09:12 Dose: 40 mg - Labs Labs: 01/13/17 06:00 01/13/17 06:00 PT 11.2 Seconds (9.8-13.1) 01/04/17 06:15 INR 1.1 (0.9-1.2) 01/04/17 06:15 APTT 28.8 Seconds (25.6-37.1) 01/04/17 06:15 - Constitutional Appears: No Acute Distress - Head Exam Head Exam: ATRAUMATIC, NORMAL INSPECTION, NORMOCEPHALIC - Eye Exam Eye Exam: EOMI, Normal appearance, PERRL Pupil Exam: NORMAL ACCOMODATION, PERRL - ENT Exam ENT Exam: Mucous Membranes Moist, Normal Exam - Neck Exam Neck Exam: Full ROM, Normal Inspection. absent: Lymphadenopathy - Respiratory Exam Respiratory Exam: Clear to Ausculation Bilateral, NORMAL BREATHING PATTERN - Cardiovascular Exam Cardiovascular Exam: REGULAR RHYTHM, +S1, +S2. absent: Murmur - GI/Abdominal Exam GI & Abdominal Exam: Soft, Tenderness, Normal Bowel Sounds. absent: Distended, Firm, Rigid, Rebound Additional comments: Incision stapled. C/D/I. - Extremities Exam Extremities Exam: Full ROM, Normal Capillary Refill, Normal Inspection. absent : Joint Swelling, Pedal Edema - Back Exam Back Exam: NORMAL INSPECTION - Neurological Exam Neurological Exam: Alert, Awake, CN II-XII Intact, Normal Gait, Oriented x3 - Psychiatric Exam Psychiatric exam: Normal Affect, Normal Mood - Skin Skin Exam: Dry, Intact, Normal Color, Warm Assessment and Plan - Assessment and Plan (Free Text) Assessment: 41 yo M s/p Lap conv. to Open Cholecystectomy, POD #4 H/H 04/02. -Continue Regular Diet -ABX -Cr 3.5 today -Continue to encourage OOB and ambulation, Incentive spirometer DW Dr. Byrnes <Rupert Byrnes - Last Filed: 01/13/17 16:34> Subjective - Date & Time of Evaluation Time of Evaluation: 16:10 - Subjective Subjective: Patient was seen and examined at the bedside. Agree with resident's note above. Objective - Vital Signs/Intake and Output Vital Signs (last 24 hours): Temp Pulse Resp BP Pulse Ox 98.7 F 67 20 117/71 97 01/13/17 08:24 01/13/17 08:24 01/13/17 08:24 01/13/17 08:24 01/13/17 08:24 - Medications Medications: Current Medications Docusate Sodium (Colace) 100 mg PO BID [facility] Last Admin: 01/13/17 09:12 Dose: 100 mg Hydromorphone HCl (Dilaudid) 1 mg IVP Q3H PRN PRN Reason: Pain, moderate (4-7) Last Admin: 01/11/17 05:06 Dose: 1 mg Iron Sucrose 200 mg/ Sodium (Chloride) 110 mls @ 110 mls/hr IVPB DAILY@2000 [facility] Last Admin: 01/12/17 20:34 Dose: 110 mls/hr Piperacillin Sod/Tazobactam (Sod 2.25 gm/ Sodium Chloride) 100 mls @ 100 mls/ hr IVPB Q8H [facility] Last Admin: 01/13/17 15:26 Dose: 100 mls/hr Doxycycline Hyclate 100 mg/ (Sodium Chloride) 100 mls @ 100 mls/hr IVPB Q12@ 0900,2100 [facility] Last Admin: 01/13/17 09:10 Dose: 100 mls/hr Sodium Chloride (Sodium Chloride 0.45%) 1,000 mls @ 125 mls/hr IV .Q8H [facility] Stop: 01/14/17 15:58 Ondansetron HCl (Zofran Inj) 4 mg IVP Q4 PRN PRN Reason: Nausea/Vomiting Pantoprazole Sodium (Protonix Ec Tab) 40 mg PO DAILY [facility] Last Admin: 01/13/17 09:12 Dose: 40 mg - Labs Labs: 01/13/17 06:00 01/13/17 06:00 PT 11.2 Seconds (9.8-13.1) 01/04/17 06:15 INR 1.1 (0.9-1.2) 01/04/17 06:15 APTT 28.8 Seconds (25.6-37.1) 01/04/17 06:15 Assessment and Plan - Assessment and Plan (Free Text) Plan: - Monitor Hb/Hct - Regular diet - Repeat labs in am - Will follow
--- NOTE | 2017-01-13 15:59 | CP.PCM.PN ---
Subjective - Date & Time of Evaluation Date of Evaluation: 01/13/17 Time of Evaluation: 10:30 - Subjective Subjective: Reports feeling well; denies shortness of breath; urinating well (1L emptied after overnight shift); tolerating diet; Objective - Vital Signs/Intake and Output Vital Signs (last 24 hours): Temp Pulse Resp BP Pulse Ox 98.7 F 67 20 117/71 97 01/13/17 08:24 01/13/17 08:24 01/13/17 08:24 01/13/17 08:24 01/13/17 08:24 - Medications Medications: Current Medications Docusate Sodium (Colace) 100 mg PO BID [facility] Last Admin: 01/13/17 09:12 Dose: 100 mg Hydromorphone HCl (Dilaudid) 1 mg IVP Q3H PRN PRN Reason: Pain, moderate (4-7) Last Admin: 01/11/17 05:06 Dose: 1 mg Iron Sucrose 200 mg/ Sodium (Chloride) 110 mls @ 110 mls/hr IVPB DAILY@2000 [facility] Last Admin: 01/12/17 20:34 Dose: 110 mls/hr Piperacillin Sod/Tazobactam (Sod 2.25 gm/ Sodium Chloride) 100 mls @ 100 mls/ hr IVPB Q8H [facility] Last Admin: 01/13/17 15:26 Dose: 100 mls/hr Doxycycline Hyclate 100 mg/ (Sodium Chloride) 100 mls @ 100 mls/hr IVPB Q12@ 0900,2100 [facility] Last Admin: 01/13/17 09:10 Dose: 100 mls/hr Sodium Chloride (Sodium Chloride 0.45%) 1,000 mls @ 125 mls/hr IV .Q8H [facility] Stop: 01/14/17 15:58 Ondansetron HCl (Zofran Inj) 4 mg IVP Q4 PRN PRN Reason: Nausea/Vomiting Pantoprazole Sodium (Protonix Ec Tab) 40 mg PO DAILY [facility] Last Admin: 01/13/17 09:12 Dose: 40 mg - Labs Labs: 01/13/17 06:00 01/13/17 06:00 PT 11.2 Seconds (9.8-13.1) 01/04/17 06:15 INR 1.1 (0.9-1.2) 08/03/17 06:15 APTT 28.8 Seconds (25.6-37.1) 01/04/17 06:15 - Constitutional Appears: Well, No Acute Distress - Head Exam Head Exam: NORMAL INSPECTION - ENT Exam ENT Exam: Mucous Membranes Moist - Respiratory Exam Respiratory Exam: NORMAL BREATHING PATTERN. absent: Rales, Rhonchi, Wheezes, Respiratory Distress Additional comments: Mildly decreased basal breath sounds; - Cardiovascular Exam Cardiovascular Exam: REGULAR RHYTHM, +S1, +S2 - GI/Abdominal Exam GI & Abdominal Exam: Soft. absent: Distended, Tenderness - Extremities Exam Additional comments: Moderate lower leg edema bilaterally; - Neurological Exam Neurological Exam: Alert, Awake - Psychiatric Exam Psychiatric exam: Normal Affect, Normal Mood - Skin Skin Exam: Normal Color, Warm. absent: Cyanosis Assessment and Plan (1) Acute renal failure Assessment & Plan: In the setting of hypotension; serum creatinine at relative plateau indicating renal recovery close; mildly hypernatremia signifiying increased urine output; -IVF w/ 1/2NS at 125 cc/hr Status: Acute (2) Anemia Assessment & Plan: Hgb stable after prbc transfusion yesterday and with appropriate response; continue to trend h/h; Status: Acute (3) Sepsis Assessment & Plan: On zosyn 2.25 g q8h, correctly dosed for CrCl < 20 ml/min; Status: Resolved (4) Hypernatremia Assessment & Plan: Mild, IVF as above; Status: Acute
[2017-01-13] MEDS: Sodium Chloride 0.45% 1,000 ML IV SCH (16:44)
[2017-01-14] MEDS: Sodium Chloride 0.45% 1,000 ML IV SCH ×2 (00:45→10:15)
[2017-01-14 08:09] LABS: MEAN CELL VOLUME 92.9 fl (80.0-94.0); MEAN CORPUSCULAR HEMOGLOBIN 30.9 pg (27.0-31.0); MEAN CORPUSCULAR HGB CONC 33.3 g/dL (33.0-37.0); RBC 3.22 Mil/uL (4.40-5.90); RED CELL DISTRIBUTION WIDTH 15.9 % (11.5-14.5); WHITE BLOOD COUNT 9.1 K/uL (4.8-10.8)
[2017-01-14 08:13] LABS: ALBUMIN 3.1 g/dL (3.5-5.0); CALCIUM 8.5 mg/dL (8.4-10.2)
--- NOTE | 2017-01-14 09:57 | CP.PCM.PN ---
<Dario Ness - Last Filed: 01/14/17 12:34> Subjective - Date & Time of Evaluation Date of Evaluation: 01/14/17 Time of Evaluation: 06:35 - Subjective Subjective: General Surgery Progress Note for Dr. Byrnes Patient seen and examined at bedside. No acute event overnight. Patient resting in bed comfortably. Patient has no complaints today. He is tolerating regular diet, voiding, and ambulating without difficulty. Denies fever/chills, cp, sob, palpitations, abd pain, n/v/d. Objective - Vital Signs/Intake and Output Vital Signs (last 24 hours): Temp Pulse Resp BP Pulse Ox 99 F 70 20 104/65 97 01/14/17 08:25 01/14/17 08:25 01/14/17 08:25 01/14/17 08:25 01/14/17 08:25 Intake and Output: 01/14/17 01/14/17 06:59 18:59 Intake Total 1550 Output Total 1101 Balance 449 - Medications Medications: Current Medications Docusate Sodium (Colace) 100 mg PO BID [facility] Last Admin: 01/13/17 16:41 Dose: 100 mg Hydromorphone HCl (Dilaudid) 1 mg IVP Q3H PRN PRN Reason: Pain, moderate (4-7) Last Admin: 01/11/17 05:06 Dose: 1 mg Iron Sucrose 200 mg/ Sodium (Chloride) 110 mls @ 110 mls/hr IVPB DAILY@1999 [facility] Last Admin: 01/13/17 20:36 Dose: 110 mls/hr Piperacillin Sod/Tazobactam (Sod 2.25 gm/ Sodium Chloride) 100 mls @ 100 mls/ hr IVPB Q8H [facility] Last Admin: 01/14/17 00:20 Dose: 100 mls/hr Doxycycline Hyclate 100 mg/ (Sodium Chloride) 100 mls @ 100 mls/hr IVPB Q12@ 0900,2100 [facility] Last Admin: 01/13/17 21:39 Dose: 100 mls/hr Sodium Chloride (Sodium Chloride 0.45%) 1,000 mls @ 125 mls/hr IV .Q8H [facility] Stop: 01/14/17 15:58 Last Admin: 01/14/17 00:45 Dose: 125 mls/hr Ondansetron HCl (Zofran Inj) 4 mg IVP Q4 PRN PRN Reason: Nausea/Vomiting Pantoprazole Sodium (Protonix Ec Tab) 40 mg PO DAILY [facility] Last Admin: 01/13/17 09:12 Dose: 40 mg - Labs Labs: 01/14/17 05:30 01/14/17 05:30 PT 11.2 Seconds (9.8-13.1) 01/04/17 06:15 INR 1.1 (0.9-1.2) 01/04/17 06:15 APTT 28.8 Seconds (25.6-37.1) 01/04/17 06:15 - Constitutional Appears: No Acute Distress - Head Exam Head Exam: ATRAUMATIC, NORMOCEPHALIC - Eye Exam Eye Exam: Normal appearance - ENT Exam ENT Exam: Mucous Membranes Moist - Neck Exam Neck Exam: Full ROM - Respiratory Exam Respiratory Exam: NORMAL BREATHING PATTERN - Cardiovascular Exam Cardiovascular Exam: REGULAR RHYTHM - GI/Abdominal Exam GI & Abdominal Exam: Soft. absent: Distended, Firm, Guarding, Rigid, Tenderness , Rebound Additional comments: Incision stapled. C/D/I. - Extremities Exam Extremities Exam: absent: Calf Tenderness - Back Exam Back Exam: absent: CVA tenderness (L), CVA tenderness (R) - Neurological Exam Neurological Exam: Alert, Awake, Normal Gait, Oriented x3 - Psychiatric Exam Psychiatric exam: Normal Affect, Normal Mood - Skin Skin Exam: Dry, Intact, Normal Color, Warm Assessment and Plan - Assessment and Plan (Free Text) Plan: 41 M s/p Lap converted to Open Cholecystectomy, POD #5 -Continue Regular Diet -Hgb stable at 10 -Lfts downtrending -Continue to encourage OOB and ambulation, Incentive spirometer -Clear for discharge from surgical standpoint -Will DW Dr. Fitz Ness PGY1 <Rupert Byrnes - Last Filed: 01/14/17 14:13> Subjective - Date & Time of Evaluation Time of Evaluation: 13:30 - Subjective Subjective: Patient was seen and examined at the bedside. Agree with resident's note above Objective - Vital Signs/Intake and Output Vital Signs (last 24 hours): Temp Pulse Resp BP Pulse Ox 99 F 70 20 104/65 97 01/14/17 09:00 01/14/17 09:00 01/14/17 09:00 01/14/17 09:00 01/14/17 09:00 Intake and Output: 01/14/17 01/14/17 06:59 18:59 Intake Total 1550 Output Total 1101 Balance 449 - Medications Medications: Current Medications Docusate Sodium (Colace) 100 mg PO BID [facility] Last Admin: 01/14/17 10:15 Dose: 100 mg Hydromorphone HCl (Dilaudid) 1 mg IVP Q3H PRN PRN Reason: Pain, moderate (4-7) Last Admin: 01/11/17 05:06 Dose: 1 mg Iron Sucrose 200 mg/ Sodium (Chloride) 110 mls @ 110 mls/hr IVPB DAILY@2000 [facility] Last Admin: 01/13/17 20:36 Dose: 110 mls/hr Piperacillin Sod/Tazobactam (Sod 2.25 gm/ Sodium Chloride) 100 mls @ 100 mls/ hr IVPB Q8H [facility] Last Admin: 01/14/17 10:12 Dose: 100 mls/hr Doxycycline Hyclate 100 mg/ (Sodium Chloride) 100 mls @ 100 mls/hr IVPB Q12@ 0900,2100 [facility] Last Admin: 01/14/17 10:11 Dose: 100 mls/hr Sodium Chloride (Sodium Chloride 0.45%) 1,000 mls @ 125 mls/hr IV .Q8H [facility] Stop: 01/14/17 15:58 Last Admin: 01/14/17 10:15 Dose: Not Given Ondansetron HCl (Zofran Inj) 4 mg IVP Q4 PRN PRN Reason: Nausea/Vomiting Pantoprazole Sodium (Protonix Ec Tab) 40 mg PO DAILY [facility] Last Admin: 01/14/17 10:15 Dose: 40 mg - Labs Labs: 01/14/17 05:30 01/14/17 05:30 PT 11.2 Seconds (9.8-13.1) 01/04/17 06:15 INR 1.1 (0.9-1.2) 01/04/17 06:15 APTT 28.8 Seconds (25.6-37.1) 01/04/17 06:15
[2017-01-14] MEDS: Pantoprazole 40 mg EC Tab PO SCH (10:15)
--- NOTE | 2017-01-14 11:03 | CP.PCM.DIS ---
Provider - Provider Date of Admission: 01/01/17 15:30 Attending physician: Jessu Colorado MD Primary care physician: None Consults: surgery consult Gi consult ID consult nephrology hematology consult Time Spent in preparation of Discharge (in minutes): 20 Hospital Course - Lab Results Lab Results: Micro Results 01/03/17 05:30 Blood Blood Culture - Final NO GROWTH AFTER 5 DAYS 01/03/17 05:30 Blood Gram Stain - Final TEST NOT PERFORMED Most Recent Lab Values WBC 9.1 K/uL (4.8-10.8) 01/14/17 05:30 RBC 3.22 Mil/uL (4.40-5.90) L 01/14/17 05:30 Hgb 10.0 g/dL (12.0-18.0) L 01/14/17 05:30 Hct 29.9 % (35.0-51.0) L 01/14/17 05:30 MCV 92.9 fl (80.0-94.0) 01/14/17 05:30 MCH 30.9 pg (27.0-31.0) 01/14/17 05:30 MCHC 33.3 g/dL (33.0-37.0) 01/14/17 05:30 RDW 15.9 % (11.5-14.5) H 01/14/17 05:30 Plt Count 366 K/uL (130-400) 01/14/17 05:30 Manual Plt Count 90 K/uL (130-400) L 01/04/17 06:15 MPV 7.9 fl (7.2-11.7) 01/12/17 17:17 Neut % (Auto) 74.7 % (50.0-75.0) 01/12/17 17:17 Lymph % (Auto) 14.1 % (20.0-40.0) L 01/12/17 17:17 [place]ison % (Auto) 9.4 % (0.0-10.0) 01/12/17 17:17 Eos % (Auto) 0.6 % (0.0-4.0) 01/12/17 17:17 Baso % (Auto) 1.2 % (0.0-2.0) 01/12/17 17:17 Neut # 7.7 K/uL (1.8-7.0) H 01/12/17 17:17 Lymph # 1.5 K/uL (1.0-4.3) 01/12/17 17:17 Addison # 1.0 K/uL (0.0-0.8) H 01/12/17 17:17 Eos # 0.1 K/uL (0.0-0.7) 01/12/17 17:17 Baso # 0.1 K/uL (0.0-0.2) 01/12/17 17:17 Neutrophils % (Manual) 87 % (42-75) H 01/10/17 05:00 Band Neutrophils % 2 % (0-2) 01/10/17 05:00 Lymphocytes % (Manual) 6 % (20-50) L 01/10/17 05:00 Reactive Lymphs % 1 % (0-0) H 01/01/17 12:00 Monocytes % (Manual) 4 % (0-10) 01/10/17 05:00 Basophils % (Manual) 1 % (0-2) 01/10/17 05:00 Metamyelocytes % 1 % (0-0) H 01/01/17 12:00 Platelet Estimate Normal (NORMAL) 01/10/17 05:00 Large Platelets Present 01/02/17 05:15 Hypochromasia (manual) Slight 01/02/17 05:15 Anisocytosis (manual) Slight 01/02/17 05:15 Ovalocytes Slight 01/01/17 12:00 PT 11.2 Seconds (9.8-13.1) 01/04/17 06:15 INR 1.1 (0.9-1.2) 01/04/17 06:15 APTT 28.8 Seconds (25.6-37.1) 01/04/17 06:15 Fibrinogen 572 mg/dl (200-400) H 01/04/17 06:15 pO2 16 mm/Hg (30-55) L 01/01/17 13:10 VBG pH 7.31 (7.32-7.43) L 01/01/17 13:10 VBG pCO2 50 mmHg (40-60) 01/01/17 13:10 VBG HCO3 21.4 mmol/L 01/01/17 13:10 VBG Total CO2 26.7 mmol/L (22-28) 01/01/17 13:10 VBG O2 Sat (Calc) 27.2 % (40-65) L 01/01/17 13:10 VBG Base Excess -1.7 mmol/L (0.0-2.0) L 01/01/17 13:10 VBG Potassium 4.2 mmol/L (3.6-5.2) 01/01/17 13:10 Sodium 137.0 mmol/L (132-148) 01/01/17 13:10 Chloride 106.0 mmol/L (98-107) 01/01/17 13:10 Glucose 117 mg/dL (75-110) H 01/01/17 13:10 Lactate 1.9 mmol/L (0.7-2.1) 01/01/17 13:10 FiO2 21.0 % 01/01/17 13:10 Sodium 145 mmol/l (132-148) 01/14/17 05:30 Potassium 4.5 MMOL/L (3.6-5.0) 01/14/17 05:30 Chloride 115 mmol/L (98-107) H 01/14/17 05:30 Carbon Dioxide 23 mmol/L (22-30) 01/14/17 05:30 Anion Gap 12 (10-20) 01/14/17 05:30 BUN 31 mg/dl (9-20) H 01/14/17 05:30 Creatinine 3.2 mg/dL (0.8-1.5) H 01/14/17 05:30 Est GFR ( Amer) 26 01/14/17 05:30 Est GFR (Non-Af Amer) 21 01/14/17 05:30 Random Glucose 91 mg/dL (75-110) 01/14/17 05:30 Hemoglobin A1c 5.5 % (4.2-6.5) 01/12/17 06:25 Calcium 8.5 mg/dL (8.4-10.2) 01/14/17 05:30 Iron 14 ug/dL (49-181) L 01/03/17 16:00 TIBC 223 ug/dL (250-450) L 01/03/17 16:00 % Saturation 6 % (20-55) L 01/03/17 16:00 Ferritin 612.0 ng/mL 01/04/17 06:15 Total Bilirubin 1.7 mg/dl (0.2-1.3) H 01/14/17 05:30 Direct Bilirubin 4.0 mg/ml (0.0-0.4) H 01/04/17 06:15 AST 33 U/L (17-59) 01/14/17 05:30 ALT 89 U/L (21-72) H 01/14/17 05:30 Alkaline Phosphatase 184 U/L (38-126) H 01/14/17 05:30 Total Protein 6.3 G/DL (6.3-8.2) 01/14/17 05:30 Albumin 3.1 g/dL (3.5-5.0) L 01/14/17 05:30 Globulin 3.2 gm/dL (2.2-3.9) 01/14/17 05:30 Albumin/Globulin Ratio 1.0 (1.0-2.1) 01/14/17 05:30 Lipase 194 U/L (23-300) 01/01/17 12:00 Vitamin B12 797 pg/mL (239-931) 01/04/17 06:15 Folate 5.7 ng/mL 01/04/17 06:15 Venous Blood Potassium 4.2 mmol/L (3.6-5.2) 01/01/17 13:10 Urine Color Yellow (YELLOW) 01/12/17 14:44 Urine Clarity Clear (Clear) 01/12/17 14:44 Urine pH 6.0 (5.0-8.0) 01/12/17 14:44 Ur Specific [place] 1.009 (1.003-1.030) 01/12/17 14:44 Urine Protein Negative mg/dL (NEGATIVE) 01/12/17 14:44 Urine Glucose (UA) Neg mg/dL (Normal) 01/12/17 14:44 Urine Ketones Negative mg/dL (NEGATIVE) 01/12/17 14:44 Urine Blood Moderate (NEGATIVE) 01/12/17 14:44 Urine Nitrate Negative (NEGATIVE) 01/12/17 14:44 Urine Bilirubin Negative (NEGATIVE) 01/12/17 14:44 Urine Urobilinogen 0.2-1.0 mg/dL (0.2-1.0) 01/12/17 14:44 Ur Leukocyte Esterase Neg Harini/uL (Negative) 01/12/17 14:44 Urine RBC (Auto) 2 /hpf (0-3) 01/12/17 14:44 Urine Microscopic WBC 1 /hpf (0-5) 01/12/17 14:44 Ur Squamous Epith Cells < 1 /hpf (0-5) 01/12/17 14:44 Uric Acid Crystals Few /hpf (<OCC) H 01/01/17 12:00 Amorphous Sediment Few /ul (<OCC) H 01/11/17 13:47 Urine Bacteria Rare (<OCC) 01/11/17 13:47 Hyaline Casts 0-2 /hpf (0-2) 01/01/17 17:00 Urine Yeast (Budding) Occ /hpf (NEGATIVE) H 01/11/17 13:47 Ur Random Creatinine 35.3 mg/dL 01/12/17 17:36 U Random Total Protein 74 mg/L 01/11/17 16:49 Ur Random Sodium 63 mmol/L 01/12/17 17:36 Ur Random Potassium 38.3 mmol/L 01/11/17 16:49 Stool Occult Blood Positive (NEGATIVE) H 01/07/17 10:30 Vancomycin Trough 23.6 ug/mL (5.0-10.0) H 01/11/17 08:00 RPR Nonreactive (NONREACTIVE) 01/11/17 18:20 Hep Bs Antigen Negative (NEGATIVE) 01/04/17 06:15 Hep Bs Antibody Negative (NEGATIVE) 01/04/17 06:15 Hep B Core IgM Ab Negative (NEGATIVE) 01/04/17 06:15 Hepatitis C Antibody Negative (NEGATIVE) 01/04/17 06:15 HIV-1 Ab Rapid Screen Non reactive (NON REAC) 01/11/17 18:20 HIV 1&2 Antibody Screen Negative (NEGATIVE) 01/12/17 06:25 Blood Type O POSITIVE 01/11/17 08:00 Blood Type Confirm O POSITIVE 01/01/17 22:18 Antibody Screen Negative 01/11/17 08:00 Crossmatch See Detail 01/11/17 08:00 BBK History Checked Patient has bt 01/11/17 08:00 - Hospital Course Hospital Course: 41 yo male with no significant PMH came in because of epigastric and suprapubic pain accompanied by fever and chills. Abdominal sonogram showed cholelithiasis with acute cholecystitis. Patient was admitted with Sepsis secondary to Acute Cholecystitis. GI , surgery and ID were consulted . he was started on IV Zosyn and Flagyl IV, pain management and IVF .MRCP showed no CBD stone.His blood cultures were reported positive for strep ppyogenes group A so Vancomycin IV was added.Due to his thrombocytopenia hematology was consulted for preop optimization . He was transfused with 1 unit of platelet preop. Patient underwent lap cholecystectomy once bilirubin and LFT-s trended down.Post op he developed acute kidney injury with Cr jumping from normal to 3.6 and acute blood loss anemia with hgb dropping to 7.6. He was transfused with total 4 unit PRBC with Hgb [address] abdomen showed large fluid collection consistent with acute hemorrhage/ hematoma in the right upper quadrant the largest component measures 9 x 9.7 cm. Additional smaller loculated hematoma is 3.7 x 4.9 cm. 2. Thickening of the wall of the rectum and sigmoid consistent with acute proctitis. Surgery consulted and recommended close monitoring with transfusion aas needed.Patient has been with no abdominal pain , tolerating Po intake wand with stable H& H for the last 23 dwaine Nephrology was consulted for ANALY and patient started on IVF .Most likely the acute renal failure thought to be related to hypovolemia pre and post op causing ATN . His renal function started improving with Cr from3.6 to 3.2 MRCP: Cholelithiasis. Thickened gallbladder wall. Pericholecystic fluid. Findings concerning for acute cholecystitis. No intra or extrahepatic biliary ductal dilatation. No dilatation of the common bile duct. There is no visualization of the most distal aspect of the common bile duct with no smooth tapering. This may be due to artifact or may reflect intrinsic or extrinsic mass effect such as distal common duct stone, ampullary neoplasm or pancreatic neoplasm. Trace ascites. Pt underwent cholecystectomy on 01/09. CT of abd 01/11 1. Large fluid collection with Hounsfield unit values consistent with acute hemorrhage/ hematoma in the right upper quadrant the largest component measures 9 x 9.7 cm. Additional smaller loculated hematoma is 3.7 x 4.9 cm. 2. Thickening of the wall of the rectum and sigmoid consistent with acute proctitis. (1) Sepsis sec Acute Cholecystitis w/ Strep pyogenes bacteremia blood culture grew Strep pyogenes continue Zosyn adjust to renal dose Hold Vanco IV ( due to ANALY and elevated trough) ID: Dr Bae Pt is afebrile, WBC trending down Fibrinogen normal Rpt Blood c/s : neg so far (2) Acute Cholecystitis s/p Cholecystectomy Surgery consulted GI consulted cont IV abx Pain mgt restart on Regular diet today - asrec by Surgery (3) Thrombocytopenia resolved probably secondary to infection or sepsis hematology consult with Dr Guzman s/p Platelet transfusion x 1 unit Platelet normalized 4. Acute kidney Injury likely ATN - IVF hydration -transfuse PRN - Nephrology consulted - Crea 3.5 today 5. Abn LFTs sec to Cholecystitis Hepatitis screen negative 6. Postoperative Anemia Hgb 7.6 transfused total of [address] of abd : shows hematoma RUQ 7. Proctitis seen on CT - add Doxycycline -check GC/Chlam - HIV negative - may need Sigmoidoscopy as outpt 8. Hematoma RUQ discussed with Surgery - will closely monitor pt CBC monitoring Pt reports less fullness on the RUQ today DVT proph encourage ambulation SCD for now Hold Lovenox due to hematoma and anemia Discharge Exam - Head Exam Head Exam: ATRAUMATIC, NORMOCEPHALIC Discharge Plan - Discharge Medications Prescriptions: Amoxicillin/Potassium Clav [Augmentin 500-125 Tablet] 1 each PO BID #10 tablet Doxycycline Hyclate 100 mg PO BID #10 cap Ferrous Sulfate 325 mg PO BID #60 tablet - Follow Up Plan Condition: FAIR Disposition: HOME/ ROUTINE
--- NOTE | 2017-01-14 12:38 | CP.PCM.PN ---
Subjective - Date & Time of Evaluation Date of Evaluation: 01/14/17 Time of Evaluation: 11:30 - Subjective Subjective: Patient reports feeling well; urinating a lot; tolerating diet; Objective - Vital Signs/Intake and Output Vital Signs (last 24 hours): Temp Pulse Resp BP Pulse Ox 99 F 70 20 104/65 97 01/14/17 08:25 01/14/17 08:25 01/14/17 08:25 01/14/17 08:25 01/14/17 08:25 Intake and Output: 01/14/17 01/14/17 06:59 18:59 Intake Total 1550 Output Total 1101 Balance 449 - Medications Medications: Current Medications Docusate Sodium (Colace) 100 mg PO BID [facility] Last Admin: 01/14/17 10:15 Dose: 100 mg Hydromorphone HCl (Dilaudid) 1 mg IVP Q3H PRN PRN Reason: Pain, moderate (4-7) Last Admin: 01/11/17 05:06 Dose: 1 mg Iron Sucrose 200 mg/ Sodium (Chloride) 110 mls @ 110 mls/hr IVPB DAILY@2000 [facility] Last Admin: 01/13/17 20:36 Dose: 110 mls/hr Piperacillin Sod/Tazobactam (Sod 2.25 gm/ Sodium Chloride) 100 mls @ 100 mls/ hr IVPB Q8H [facility] Last Admin: 01/14/17 10:12 Dose: 100 mls/hr Doxycycline Hyclate 100 mg/ (Sodium Chloride) 100 mls @ 100 mls/hr IVPB Q12@ 0900,2100 [facility] Last Admin: 01/14/17 10:11 Dose: 100 mls/hr Sodium Chloride (Sodium Chloride 0.45%) 1,000 mls @ 125 mls/hr IV .Q8H [facility] Stop: 01/14/17 15:58 Last Admin: 01/14/17 10:15 Dose: Not Given Ondansetron HCl (Zofran Inj) 4 mg IVP Q4 PRN PRN Reason: Nausea/Vomiting Pantoprazole Sodium (Protonix Ec Tab) 40 mg PO DAILY [facility] Last Admin: 01/14/17 10:15 Dose: 40 mg - Labs Labs: 01/14/17 05:30 01/14/17 05:30 PT 11.2 Seconds (9.8-13.1) 01/04/17 06:15 INR 1.1 (0.9-1.2) 01/04/17 06:15 APTT 28.8 Seconds (25.6-37.1) 01/04/17 06:15 - Constitutional Appears: Non-toxic, No Acute Distress - Head Exam Head Exam: NORMAL INSPECTION - Eye Exam Eye Exam: Normal appearance. absent: Scleral icterus - ENT Exam ENT Exam: Mucous Membranes Moist - Respiratory Exam Respiratory Exam: Clear to Ausculation Bilateral, NORMAL BREATHING PATTERN. absent: Rales, Rhonchi, Wheezes - Cardiovascular Exam Cardiovascular Exam: RRR, +S1, +S2 - Extremities Exam Additional comments: Moderate bilateral lower leg edema; - Neurological Exam Neurological Exam: Alert, Awake - Psychiatric Exam Psychiatric exam: Normal Affect, Normal Mood - Skin Skin Exam: Normal Color, Warm. absent: Cyanosis Assessment and Plan (1) Acute renal failure Assessment & Plan: Resolving; appears to be in post-ATN diuresis; check on UO reveals patient making about 250 cc/hr this morning; risk of volume depletion and so patient should be kept on IVF until urine output starts decreasing; -continue 1/2NS at 125 cc/hr Status: Acute (2) Anemia Status: Acute (3) Sepsis Assessment & Plan: On zosyn 2.25 g q8h; correctly dosed for CrCl < 20 ml/min; Status: Resolved (4) Hypernatremia Assessment & Plan: Still mildly hypernatremic despite being on hypotonic IVF; continue 1/2NS as above; encourage PO water intake; Status: Acute
--- NOTE | 2017-01-14 16:18 | CP.PCM.PN ---
Subjective - Date & Time of Evaluation Date of Evaluation: 01/14/17 Time of Evaluation: 09:00 - Subjective Subjective: Patient seen and examined bedside. Feeling better. Denies any abdominal pain. Tolerating Po intake. Hemodynamically stable, afebrile .No acute issues overnight.With almost 200 ml urine output / hour Objective - Vital Signs/Intake and Output Vital Signs (last 24 hours): Temp Pulse Resp BP Pulse Ox 98.8 F 68 18 118/77 100 01/14/17 16:01 01/14/17 16:01 01/14/17 16:01 01/14/17 16:01 01/14/17 16:01 Intake and Output: 01/14/17 01/14/17 06:59 18:59 Intake Total 1550 Output Total 1101 Balance 449 - Medications Medications: Current Medications Docusate Sodium (Colace) 100 mg PO BID [facility] Last Admin: 01/14/17 10:15 Dose: 100 mg Hydromorphone HCl (Dilaudid) 1 mg IVP Q3H PRN PRN Reason: Pain, moderate (4-7) Last Admin: 01/11/17 05:06 Dose: 1 mg Iron Sucrose 200 mg/ Sodium (Chloride) 110 mls @ 110 mls/hr IVPB DAILY@2000 [facility] Last Admin: 01/13/17 20:36 Dose: 110 mls/hr Piperacillin Sod/Tazobactam (Sod 2.25 gm/ Sodium Chloride) 100 mls @ 100 mls/ hr IVPB Q8H [facility] Last Admin: 01/14/17 10:12 Dose: 100 mls/hr Doxycycline Hyclate 100 mg/ (Sodium Chloride) 100 mls @ 100 mls/hr IVPB Q12@ 0900,2100 [facility] Last Admin: 01/14/17 10:11 Dose: 100 mls/hr Ondansetron HCl (Zofran Inj) 4 mg IVP Q4 PRN PRN Reason: Nausea/Vomiting Pantoprazole Sodium (Protonix Ec Tab) 40 mg PO DAILY [facility] Last Admin: 01/14/17 10:15 Dose: 40 mg - Labs Labs: 01/14/17 05:30 01/14/17 05:30 PT 11.2 Seconds (9.8-13.1) 01/04/17 06:15 INR 1.1 (0.9-1.2) 01/04/17 06:15 APTT 28.8 Seconds (25.6-37.1) 01/04/17 06:15 - Constitutional Appears: Non-toxic, No Acute Distress - Head Exam Head Exam: ATRAUMATIC, NORMAL INSPECTION, NORMOCEPHALIC - Eye Exam Eye Exam: EOMI, Normal appearance, PERRL Pupil Exam: NORMAL ACCOMODATION - ENT Exam ENT Exam: Mucous Membranes Moist, Normal Exam - Neck Exam Neck Exam: Full ROM, Normal Inspection - Respiratory Exam Respiratory Exam: Clear to Ausculation Bilateral, NORMAL BREATHING PATTERN. absent: Rales, Rhonchi, Wheezes - Cardiovascular Exam Cardiovascular Exam: REGULAR RHYTHM, RRR, +S1, +S2. absent: JVD - GI/Abdominal Exam GI & Abdominal Exam: Soft, Normal Bowel Sounds. absent: Distended, Guarding, Tenderness, Rebound - Rectal Exam Rectal Exam: Deferred - Extremities Exam Extremities Exam: Full ROM, Normal Capillary Refill, Normal Inspection, Pedal Edema (3 + to bilateral lower extremities) - Back Exam Back Exam: NORMAL INSPECTION - Neurological Exam Neurological Exam: Alert, Awake, CN II-XII Intact, Oriented x3 - Psychiatric Exam Psychiatric exam: Normal Affect, Normal Mood - Skin Skin Exam: Dry, Intact, Normal Color, Warm Assessment and Plan - Assessment and Plan (Free Text) Assessment: 41 yo male with no significant PMH came in because of epigastric and suprapubic pain accompanied by fever and chills. Abdominal sonogram showed cholelithiasis with acute cholecystitis. Patient was admitted with Sepsis secondary to Acute Cholecystitis. GI , surgery and ID were consulted . he was started on IV Zosyn and Flagyl IV, pain management and IVF .MRCP showed no CBD stone.His blood cultures were reported positive for strep ppyogenes group A so Vancomycin IV was added.Due to his thrombocytopenia hematology was consulted for preop optimization . He was transfused with 1 unit of platelet preop. Patient underwent lap cholecystectomy once bilirubin and LFT-s trended down.Post op he developed acute kidney injury with Cr jumping from normal to 3.6 and acute blood loss anemia with hgb dropping to 7.6. He was transfused with total 4 unit PRBC with Hgb [address] abdomen showed large fluid collection consistent with acute hemorrhage/ hematoma in the right upper quadrant the largest component measures 9 x 9.7 cm. Additional smaller loculated hematoma is 3.7 x 4.9 cm. 2. Thickening of the wall of the rectum and sigmoid consistent with acute proctitis. Surgery consulted and recommended close monitoring with transfusion as needed.Patient has been with no abdominal pain , tolerating Po intake and with stable H& H for the last 3 days Nephrology was consulted for ANALY and patient started on IVF .Most likely the acute renal failure thought to be related to hypovolemia pre and post op causing ATN . His renal function started improving with Cr from 3.6 to 3.2 . Presently on IVF and with 200 ml urine output/hour 1.Sepsis sec Acute Cholecystitis w/ Strep pyogenes bacteremia blood culture grew Strep pyogenes has been on Zosyn IV since admision for 14 days ( adjusted to renal dose) Hold Vanco IV ( due to ANALY and elevated trough) ID: Dr Bae on consult Pt is afebrile, WBC trending down Fibrinogen normal Rpt Blood c/s : neg so far discussed with . May discharge on Po Augmentin for 5 days 2. Acute Cholecystitis s/p Cholecystectomy Surgery consulted GI consulted has been on IV abx for 14 days Continue Pain mgt tolerating Regular diet today cleared by surgery for discharge 3 Thrombocytopenia resolved probably secondary to infection or sepsis hematology consult with Dr Guzman appreciated s/p Platelet transfusion x 1 unit Platelet normalized 4. Acute kidney Injury likely ATN Most likely ATN secondary to hypotension and hypoperfusion Cr improving from 3.5-- 3.2 with good urine output discussed with nephrology . Patient seems to be in polyuric phase of ATN so recommended IVF hydration , monitoring of I/O and repeat BMP in AM Continue IVF hydration with 1/2 NS repeat BMP in AM 5. Abn LFTs sec to Cholecystitis Hepatitis screen negative 6. Postoperative Anemia/ acute blood loss anemia Hgb drooped to 7.6 post op transfused total of 4 units PRBC with Hgb 10 , stable CT of abd : shows hematoma RUQ 7. Proctitis seen on CT continue Doxycycline HIV negative may need Sigmoidoscopy as outpt f/u GNC/ Chlamydia 8. Hematoma RUQ discussed with Surgery - will closely monitor pt CBC monitoring Pt reports less fullness on the RUQ today H& H stable 9.DVT proph encourage ambulation SCD for now Hold Lovenox due to hematoma and anemia
[2017-01-15 00:30] VITALS: RESP 20
[2017-01-15 06:44] LABS: BASO # 0.1 K/uL (0.0-0.2); BASO % 1.2 % (0.0-2.0); EOS # 0.1 K/uL (0.0-0.7); EOS % 1.7 % (0.0-4.0); HEMOGLOBIN 9.6 g/dL (12.0-18.0); LYMPH # 1.3 K/uL (1.0-4.3); LYMPH % 16.1 % (20.0-40.0); MEAN CELL VOLUME 91.8 fl (80.0-94.0); MEAN CORPUSCULAR HEMOGLOBIN 31.2 pg (27.0-31.0); MEAN CORPUSCULAR HGB CONC 33.9 g/dL (33.0-37.0); MEAN PLATELET VOLUME 7.9 fl (7.2-11.7); MONO # 0.8 K/uL (0.0-0.8); MONO % 9.5 % (0.0-10.0); NEUT # 5.8 K/uL (1.8-7.0); NEUT % 71.5 % (50.0-75.0); NRBC % 0.1 % (0.0-0.0); RBC 3.08 Mil/uL (4.40-5.90); RED CELL DISTRIBUTION WIDTH 15.8 % (11.5-14.5); WHITE BLOOD COUNT 8.1 K/uL (4.8-10.8)
[2017-01-15 07:04] LABS: ALB/GLOB RATIO 0.9 (1.0-2.1); ALBUMIN 2.9 g/dL (3.5-5.0); CALCIUM 8.5 mg/dL (8.4-10.2)
--- NOTE | 2017-01-15 07:10 | CP.PCM.PN ---
Subjective - Date & Time of Evaluation Date of Evaluation: 01/15/17 Time of Evaluation: 07:08 - Subjective Subjective: General Surgery - Dr. Byrnes Pt S&E. STUART. Pt denies any discomfort. He is OOB and ambulating, tolerating regular diet. No N/V, F/C, SOb/Cp. Objective - Vital Signs/Intake and Output Vital Signs (last 24 hours): Temp Pulse Resp BP Pulse Ox 98.8 F 77 20 111/70 96 01/15/17 00:29 01/15/17 00:29 01/15/17 00:29 01/15/17 00:29 01/15/17 00:29 - Medications Medications: Current Medications Docusate Sodium (Colace) 100 mg PO BID [facility] Last Admin: 01/14/17 16:08 Dose: 100 mg Hydromorphone HCl (Dilaudid) 1 mg IVP Q3H PRN PRN Reason: Pain, moderate (4-7) Last Admin: 01/11/17 05:06 Dose: 1 mg Iron Sucrose 200 mg/ Sodium (Chloride) 110 mls @ 110 mls/hr IVPB DAILY@2000 [facility] Last Admin: 01/14/17 20:09 Dose: 110 mls/hr Piperacillin Sod/Tazobactam (Sod 2.25 gm/ Sodium Chloride) 100 mls @ 100 mls/ hr IVPB Q8H [facility] Last Admin: 01/15/17 00:14 Dose: 100 mls/hr Doxycycline Hyclate 100 mg/ (Sodium Chloride) 100 mls @ 100 mls/hr IVPB Q12@ 0900,2100 [facility] Last Admin: 01/14/17 20:13 Dose: 100 mls/hr Ondansetron HCl (Zofran Inj) 4 mg IVP Q4 PRN PRN Reason: Nausea/Vomiting Pantoprazole Sodium (Protonix Ec Tab) 40 mg PO DAILY [facility] Last Admin: 01/14/17 10:15 Dose: 40 mg - Labs Labs: 01/15/17 05:20 01/14/17 05:30 PT 11.2 Seconds (9.8-13.1) 01/04/17 06:15 INR 1.1 (0.9-1.2) 01/04/17 06:15 APTT 28.8 Seconds (25.6-37.1) 01/04/17 06:15 - Constitutional Appears: No Acute Distress - Head Exam Head Exam: ATRAUMATIC, NORMAL INSPECTION, NORMOCEPHALIC - Eye Exam Eye Exam: Normal appearance - ENT Exam ENT Exam: Mucous Membranes Moist - Respiratory Exam Respiratory Exam: NORMAL BREATHING PATTERN. absent: Respiratory Distress - Cardiovascular Exam Cardiovascular Exam: REGULAR RHYTHM - GI/Abdominal Exam GI & Abdominal Exam: Soft. absent: Distended, Guarding, Tenderness, Rebound Additional comments: dwight incision w/ paco, c/d/i - Neurological Exam Neurological Exam: Alert, Oriented x3 - Psychiatric Exam Psychiatric exam: Normal Affect, Normal Mood - Skin Skin Exam: Dry, Intact Assessment and Plan - Assessment and Plan (Free Text) Assessment: 41 M s/p Lap converted to Open Cholecystectomy, POD #6 -Continue Regular Diet -H/H has been stable (~10), LFts trending down -Continue to encourage OOB and ambulation, Incentive spirometer -Clear for discharge from surgical standpoint -Pt to f/u in office with Dr. Byrnes in 1-[address] Fitz Dubose PGY3
[2017-01-15 07:26] VITALS: BP 109/67; PULSE 69; TEMP 98.6; O2SAT 95
--- NOTE | 2017-01-15 07:47 | CP.PCM.DIS ---
Provider - Provider Date of Admission: 01/01/17 15:30 Attending physician: Jesus Colorado MD Primary care physician: None Consults: Surgery consult GI consult Hematology ID consult Nephrology consult Time Spent in preparation of Discharge (in minutes): 20 Hospital Course - Lab Results Lab Results: Micro Results 01/03/17 05:30 Blood Blood Culture - Final NO GROWTH AFTER 5 DAYS 01/03/17 05:30 Blood Gram Stain - Final TEST NOT PERFORMED Most Recent Lab Values WBC 8.1 K/uL (4.8-10.8) 01/15/17 05:20 RBC 3.08 Mil/uL (4.40-5.90) L 01/15/17 05:20 Hgb 9.6 g/dL (12.0-18.0) L 01/15/17 05:20 Hct 28.3 % (35.0-51.0) L 01/15/17 05:20 MCV 91.8 fl (80.0-94.0) 01/15/17 05:20 MCH 31.2 pg (27.0-31.0) H 01/15/17 05:20 MCHC 33.9 g/dL (33.0-37.0) 01/15/17 05:20 RDW 15.8 % (11.5-14.5) H 01/15/17 05:20 Plt Count 319 K/uL (130-400) 01/15/17 05:20 Manual Plt Count 90 K/uL (130-400) L 01/04/17 06:15 MPV 7.9 fl (7.2-11.7) 01/15/17 05:20 Neut % (Auto) 71.5 % (50.0-75.0) 01/15/17 05:20 Lymph % (Auto) 16.1 % (20.0-40.0) L 01/15/17 05:20 [place] % (Auto) 9.5 % (0.0-10.0) 01/15/17 05:20 Eos % (Auto) 1.7 % (0.0-4.0) 01/15/17 05:20 Baso % (Auto) 1.2 % (0.0-2.0) 01/15/17 05:20 Neut # 5.8 K/uL (1.8-7.0) 01/15/17 05:20 Lymph # 1.3 K/uL (1.0-4.3) 01/15/17 05:20 [place] # 0.8 K/uL (0.0-0.8) 01/15/17 05:20 Eos # 0.1 K/uL (0.0-0.7) 01/15/17 05:20 Baso # 0.1 K/uL (0.0-0.2) 01/15/17 05:20 Neutrophils % (Manual) 87 % (42-75) H 01/10/17 05:00 Band Neutrophils % 2 % (0-2) 01/10/17 05:00 Lymphocytes % (Manual) 6 % (20-50) L 01/10/17 05:00 Reactive Lymphs % 1 % (0-0) H 01/01/17 12:00 Monocytes % (Manual) 4 % (0-10) 01/10/17 05:00 Basophils % (Manual) 1 % (0-2) 01/10/17 05:00 Metamyelocytes % 1 % (0-0) H 01/01/17 12:00 Platelet Estimate Normal (NORMAL) 01/10/17 05:00 Large Platelets Present 01/02/17 05:15 Hypochromasia (manual) Slight 01/02/17 05:15 Anisocytosis (manual) Slight 01/02/17 05:15 Ovalocytes Slight 01/01/17 12:00 PT 11.2 Seconds (9.8-13.1) 01/04/17 06:15 INR 1.1 (0.9-1.2) 01/04/17 06:15 APTT 28.8 Seconds (25.6-37.1) 01/04/17 06:15 Fibrinogen 572 mg/dl (200-400) H 01/04/17 06:15 pO2 16 mm/Hg (30-55) L 01/01/17 13:10 VBG pH 7.31 (7.32-7.43) L 01/01/17 13:10 VBG pCO2 50 mmHg (40-60) 01/01/17 13:10 VBG HCO3 21.4 mmol/L 01/01/17 13:10 VBG Total CO2 26.7 mmol/L (22-28) 01/01/17 13:10 VBG O2 Sat (Calc) 27.2 % (40-65) L 01/01/17 13:10 VBG Base Excess -1.7 mmol/L (0.0-2.0) L 01/01/17 13:10 VBG Potassium 4.2 mmol/L (3.6-5.2) 01/01/17 13:10 Sodium 137.0 mmol/L (132-148) 01/01/17 13:10 Chloride 106.0 mmol/L (98-107) 01/01/17 13:10 Glucose 117 mg/dL (75-110) H 01/01/17 13:10 Lactate 1.9 mmol/L (0.7-2.1) 01/01/17 13:10 FiO2 21.0 % 01/01/17 13:10 Sodium 143 mmol/l (132-148) 01/15/17 05:20 Potassium 4.3 MMOL/L (3.6-5.0) 01/15/17 05:20 Chloride 114 mmol/L (98-107) H 01/15/17 05:20 Carbon Dioxide 23 mmol/L (22-30) 01/15/17 05:20 Anion Gap 10 (10-20) 01/15/17 05:20 BUN 27 mg/dl (9-20) H 01/15/17 05:20 Creatinine 2.9 mg/dL (0.8-1.5) H 01/15/17 05:20 Est GFR ( Amer) 29 01/15/17 05:20 Est GFR (Non-Af Amer) 24 01/15/17 05:20 Random Glucose 90 mg/dL (75-110) 01/15/17 05:20 Hemoglobin A1c 5.5 % (4.2-6.5) 01/12/17 06:25 Calcium 8.5 mg/dL (8.4-10.2) 01/15/17 05:20 Iron 14 ug/dL (49-181) L 01/03/17 16:00 TIBC 223 ug/dL (250-450) L 01/03/17 16:00 % Saturation 6 % (20-55) L 01/03/17 16:00 Ferritin 612.0 ng/mL 01/04/17 06:15 Total Bilirubin 1.5 mg/dl (0.2-1.3) H 01/15/17 05:20 Direct Bilirubin 4.0 mg/ml (0.0-0.4) H 01/04/17 06:15 AST 27 U/L (17-59) 01/15/17 05:20 ALT 73 U/L (21-72) H 01/15/17 05:20 Alkaline Phosphatase 157 U/L (38-126) H 01/15/17 05:20 Total Protein 6.1 G/DL (6.3-8.2) L 01/15/17 05:20 Albumin 2.9 g/dL (3.5-5.0) L 01/15/17 05:20 Globulin 3.2 gm/dL (2.2-3.9) 01/15/17 05:20 Albumin/Globulin Ratio 0.9 (1.0-2.1) L 01/15/17 05:20 Lipase 194 U/L (23-300) 01/01/17 12:00 Vitamin B12 797 pg/mL (239-931) 01/04/17 06:15 Folate 5.7 ng/mL 01/04/17 06:15 Venous Blood Potassium 4.2 mmol/L (3.6-5.2) 01/01/17 13:10 Urine Color Yellow (YELLOW) 01/12/17 14:44 Urine Clarity Clear (Clear) 01/12/17 14:44 Urine pH 6.0 (5.0-8.0) 01/12/17 14:44 Ur Specific [place] 1.009 (1.003-1.030) 01/12/17 14:44 Urine Protein Negative mg/dL (NEGATIVE) 01/12/17 14:44 Urine Glucose (UA) Neg mg/dL (Normal) 01/12/17 14:44 Urine Ketones Negative mg/dL (NEGATIVE) 01/12/17 14:44 Urine Blood Moderate (NEGATIVE) 01/12/17 14:44 Urine Nitrate Negative (NEGATIVE) 01/12/17 14:44 Urine Bilirubin Negative (NEGATIVE) 01/12/17 14:44 Urine Urobilinogen 0.2-1.0 mg/dL (0.2-1.0) 01/12/17 14:44 Ur Leukocyte Esterase Neg Harini/uL (Negative) 01/12/17 14:44 Urine RBC (Auto) 2 /hpf (0-3) 01/12/17 14:44 Urine Microscopic WBC 1 /hpf (0-5) 01/12/17 14:44 Ur Squamous Epith Cells < 1 /hpf (0-5) 01/12/17 14:44 Uric Acid Crystals Few /hpf (<OCC) H 01/01/17 12:00 Amorphous Sediment Few /ul (<OCC) H 01/11/17 13:47 Urine Bacteria Rare (<OCC) 01/11/17 13:47 Hyaline Casts 0-2 /hpf (0-2) 01/01/17 17:00 Urine Yeast (Budding) Occ /hpf (NEGATIVE) H 01/11/17 13:47 Ur Random Creatinine 35.3 mg/dL 01/12/17 17:36 U Random Total Protein 74 mg/L 01/11/17 16:49 Ur Random Sodium 63 mmol/L 01/12/17 17:36 Ur Random Potassium 38.3 mmol/L 01/11/17 16:49 Stool Occult Blood Positive (NEGATIVE) H 01/07/17 10:30 Vancomycin Trough 23.6 ug/mL (5.0-10.0) H 01/11/17 08:00 RPR Nonreactive (NONREACTIVE) 01/11/17 18:20 Hep Bs Antigen Negative (NEGATIVE) 01/04/17 06:15 Hep Bs Antibody Negative (NEGATIVE) 01/04/17 06:15 Hep B Core IgM Ab Negative (NEGATIVE) 01/04/17 06:15 Hepatitis C Antibody Negative (NEGATIVE) 01/04/17 06:15 HIV-1 Ab Rapid Screen Non reactive (NON REAC) 01/11/17 18:20 HIV 1&2 Antibody Screen Negative (NEGATIVE) 01/12/17 06:25 Blood Type O POSITIVE 01/11/17 08:00 Blood Type Confirm O POSITIVE 01/01/17 22:18 Antibody Screen Negative 01/11/17 08:00 Crossmatch See Detail 01/11/17 08:00 BBK History Checked Patient has bt 01/11/17 08:00 - Hospital Course Hospital Course: 41 yo male with no significant PMH came in because of epigastric and suprapubic pain accompanied by fever and chills. Abdominal sonogram showed cholelithiasis with acute cholecystitis. Patient was admitted with Sepsis secondary to Acute Cholecystitis. GI , surgery and ID were consulted . he was started on IV Zosyn and Flagyl IV, pain management and IVF .MRCP showed no CBD stone.His blood cultures were reported positive for strep ppyogenes group A so Vancomycin IV was added.Due to his thrombocytopenia hematology was consulted for preop optimization . He was transfused with 1 unit of platelet preop. Patient underwent lap cholecystectomy once bilirubin and LFT-s trended down.Post op he developed acute kidney injury with Cr jumping from normal to 3.6 and acute blood loss anemia with hgb dropping to 7.6. He was transfused with total 4 unit PRBC with Hgb [address] abdomen showed large fluid collection consistent with acute hemorrhage/ hematoma in the right upper quadrant the largest component measures 9 x 9.7 cm. Additional smaller loculated hematoma is 3.7 x 4.9 cm. 2. Thickening of the wall of the rectum and sigmoid consistent with acute proctitis. Surgery consulted and recommended close monitoring with transfusion as needed.Patient has been with no abdominal pain , tolerating Po intake and with stable H& H for the last 4 days Nephrology was consulted for ANALY and patient started on IVF .Most likely the acute renal failure thought to be related to hypovolemia pre and post op causing ATN . His renal function started improving with Cr from 3.6 to 2.9 with good urine output patients hemodynamically stable, afebrile , tolerating PO intake with good po intake and good urine output Cleared for discharge by consultants Will continue with Augmentin and Doxcycline po for 5 more days Follow up with [facility] in 1 week to repeta BMP( renal function ) . Follow up with surgical clinic for removal of paco 1.Sepsis sec Acute Cholecystitis w/ Strep pyogenes bacteremia blood culture grew Strep pyogenes has been on Zosyn IV since admision for 14 days ( adjusted to renal dose) Hold Vanco IV ( due to ANALY and elevated trough) ID: Dr Bae on consult Pt is afebrile, WBC trending down Fibrinogen normal Rpt Blood c/s : neg so far discussed with . May discharge on Po Augmentin for 5 days 2. Acute Cholecystitis s/p Cholecystectomy Surgery consulted GI consulted has been on IV abx for 14 days Continue Pain mgt tolerating Regular diet today cleared by surgery for discharge 3 Thrombocytopenia resolved probably secondary to infection or sepsis hematology consult with Dr Guzman appreciated s/p Platelet transfusion x 1 unit Platelet normalized 4. Acute kidney Injury likely ATN Most likely ATN secondary to hypotension and hypoperfusion Cr improving from 3.5-- 2.9 with good urine output nephrology consulted Continue oral hydration upon discharge repeat BMP in 1 week 5. Abn LFTs sec to Cholecystitis Hepatitis screen negative 6. Postoperative Anemia/ acute blood loss anemia Hgb drooped to 7.6 post op transfused total of 4 units PRBC with Hgb 9.6, stable CT of abd : shows hematoma RUQ 7. Proctitis seen on CT continue Doxycycline for 5 more day s HIV negative may need Sigmoidoscopy as outpt f/u GNC/ Chlamydia 8. Hematoma RUQ discussed with Surgery - will closely monitor pt CBC monitoring Pt reports less fullness on the RUQ today H& H stable 9.DVT proph encourage ambulation SCD for now Hold Lovenox due to hematoma and anemia Discharge Exam - Head Exam Head Exam: ATRAUMATIC, NORMAL INSPECTION, NORMOCEPHALIC - Eye Exam Eye Exam: EOMI, Normal appearance, PERRL Pupil Exam: NORMAL ACCOMODATION - ENT Exam ENT Exam: Mucous Membranes Moist, Normal Exam - Neck Exam Neck exam: Full Rom, Normal Inspection - Respiratory Exam Respiratory Exam: Clear to PA & Lateral, NORMAL BREATHING PATTERN. absent: Rales, Rhonchi, Wheezes - Cardiovascular Exam Cardiovascular Exam: REGULAR RHYTHM, RRR, +S1, +S2. absent: JVD - GI/Abdominal Exam GI & Abdominal Exam: Normal Bowel Sounds, Soft. absent: Distended, Guarding, Rebound, Tenderness - Rectal Exam Rectal Exam: Deferred - Extremities Exam Extremities exam: normal capillary refill, normal inspection, pedal pulses present - Back Exam Back exam: NORMAL INSPECTION - Neurological Exam Neurological exam: Alert, CN II-XII Intact, Oriented x3, Reflexes Normal - Psychiatric Exam Psychiatric exam: Normal Affect, Normal Mood - Skin Skin Exam: Dry, Intact, Normal Color, Warm Discharge Plan - Discharge Medications Prescriptions: Amoxicillin/Potassium Clav [Augmentin 500-125 Tablet] 1 each PO BID #10 tablet Doxycycline Hyclate 100 mg PO BID #10 cap Ferrous Sulfate 325 mg PO BID #60 tablet - Follow Up Plan Condition: STABLE Disposition: HOME/ ROUTINE Patient education suggested?: Yes Instructions: Open Cholecystectomy (DC), Anemia (DC) Referrals: [facility] [place] [Outside] Rupert Byrnes MD [Staff Provider] -
[2017-01-15] MEDS: Pantoprazole 40 mg EC Tab PO SCH (09:30)
--- NOTE | 2017-01-15 20:42 | CP.PCM.PN ---
Objective - Vital Signs/Intake and Output Vital Signs (last 24 hours): Temp Pulse Resp BP Pulse Ox 98.6 F 69 20 109/67 95 01/15/17 07:26 01/15/17 07:26 01/15/17 07:26 01/15/17 07:26 01/15/17 07:26 Intake and Output: 01/15/17 01/16/17 18:59 06:59 Intake Total 1700 Output Total 2500 Balance -800 - Labs Labs: 01/15/17 05:20 01/15/17 05:20 PT 11.2 Seconds (9.8-13.1) 01/04/17 06:15 INR 1.1 (0.9-1.2) 01/04/17 06:15 APTT 28.8 Seconds (25.6-37.1) 01/04/17 06:15 Assessment and Plan (1) Acute renal failure Status: Acute (2) Anemia Status: Acute (3) Sepsis Status: Resolved (4) Hypernatremia Status: Acute
--- NOTE | 2017-01-16 08:29 | PN ---
NEPHROLOGY FOLLOWUP NOTE SUBJECTIVE: A 41-year-old male with no past medical history admitted with acute cholecystitis. Nephrology following for acute renal failure. The patient reports feeling well. Urinating frequently. Reporting bilateral lower leg edema. PHYSICAL EXAMINATION: VITAL SIGNS: This morning, blood pressure 109/67, heart rate 69, respiration 20, temperature 98.6, O2 sat 95% on room air. GENERAL: No distress. Speaking comfortably in full sentences. HEENT: Moist mucous membranes, nonicteric. CHEST: Decreased breath sounds at bases bilaterally; otherwise clear to auscultation bilaterally. HEART: S1 and S2 normal, no murmurs, no gallops, no rubs. Regular rate and rhythm. ABDOMEN: Soft, mild tenderness in right upper quadrant, nondistended. EXTREMITIES: Bilateral moderate lower leg edema. Good capillary refill. PSYCHIATRIC: Normal mood. Normal affect. SKIN: Warm to touch. No cyanosis. LABORATORY DATA: This morning WBC 8.1, hemoglobin 9.6, hematocrit 28.3, platelets 319. Chemistry panel: Sodium 143, potassium 4.3, chloride 114, bicarb 23, BUN 27, creatinine 2.9, calcium 8.5, glucose 90, albumin 2.9. ASSESSMENT AND PLAN: 1. Acute renal failure. Acute tubular necrosis in the setting of prolonged hypotension, resolving. Urine output appears to be stabilizing. No sign of volume depletion on exam. The patient encouraged to consume more water and to use more salt in his food, to eat a high-salt diet for the next 1 to 2 weeks. Should have follow up chemistry panel and outpatient followup within the next 10 days. 2. Anemia. Hemoglobin relatively stable following packed red blood cells transfusion. Can continue on p.o. ferrous sulfate 325 mg b.i.d. as outpatient. 3. Sepsis. The patient had been receiving Zosyn 2.25 g q. 8 hours, correctly dosed for renal insufficiency and doxycycline 100 mg q. 12 hours, no need for renal dose adjustment. 4. Hypernatremia, mild, improving. Encouraged to drink more free water. Yossi Appiah MD
== END 2017-01-15 11:30 | disposition home or self-care (01) | DRG 556 ==
LOC: H.ER 11:23 → H.ERHOLD 15:30 → H.TEL 18:57 → H.MEDSURG1 01-12 03:20
PROC: 6A550Z2 Pheresis of Platelets, Single (ICD-10-PCS; 2017-01-04)
PROC: 0FT40ZZ Resection of Gallbladder, Open Approach (ICD-10-PCS; principal; 2017-01-09 07:45)
PROC: 30233N1 Transfusion of Nonautologous Red Blood Cells into Peripheral Vein, Percutaneous Approach (ICD-10-PCS; 2017-01-11)
DX: K80.12 Calculus of gallbladder with acute and chronic cholecystitis without obstruction (principal); A40.0 Sepsis due to streptococcus, group A; N17.0 Acute kidney failure with tubular necrosis; D69.59 Other secondary thrombocytopenia; E87.0 Hyperosmolality and hypernatremia; D62 Acute posthemorrhagic anemia; I97.88 Other intraoperative complications of the circulatory system, not elsewhere classified; I95.81 Postprocedural hypotension; S30.1XXA Contusion of abdominal wall, initial encounter; K66.0 Peritoneal adhesions (postprocedural) (postinfection); Z53.31 Laparoscopic surgical procedure converted to open procedure; Z87.891 Personal history of nicotine dependence